=== PATIENT | female | born 1950 | race Caucasian/White ===

== ENCOUNTER 2017-04-06 11:28 | Inpatient (IN) | payer MEDICARE, MEDICAID ==
[~2017-04-06] VITALS: Ht 157.5 cm; Wt 76.2 kg
[~2017-04-06 11:28] MED LIST: ATEN100T PO; ATOR10TA PO; LANTUS SQ; LISI10TA5 PO; METF850T PO
[2017-04-06] MEDS ORDERED: LOSARTAN PO (11:55)
[2017-04-06] MEDS ORDERED: HUMALOG 75/25 SQ (11:55)
[2017-04-06] MEDS ORDERED: ASPI81TA31 PO (11:55)
[2017-04-06] MEDS ORDERED: LANTUS INSULIN SQ (11:55)
[2017-04-06] MEDS ORDERED: FELO10TA3 PO (11:55)
[2017-04-06] MEDS ORDERED: GABA-534 PO (11:55)
[2017-04-06] MEDS ORDERED: IV NORMAL SALINE 500 ML BAG IV ONE (12:15)
--- NOTE | 2017-04-06 12:37 | NUR ---
PT IS IN ROOM #2A. DR PATEL EVALUATED THE PT.
[2017-04-06] MEDS ORDERED: INSULIN REGULAR, HUMAN 1,000 UNITS/10 ML VIAL IV ONE (13:00)
[2017-04-06] MEDS ORDERED: INSULIN REGULAR, HUMAN 300 UNIT/3 ML VIAL ONE (13:26)
--- NOTE | 2017-04-06 13:33 | NUR ---
REPORT WAS GIVEN TO FACE CLEANER . PT WAS TRANSFERED TO ROOM #206.
[2017-04-06 13:40] LABS: CREATININE 1.2 mg/dL (0.6-1.3); POTASSIUM 4.9 mmol/L (3.5-5.1)
--- NOTE | 2017-04-06 13:40 | NUR ---
RECEIVED PATIENT FOR ADMISSION 66 YEARS OLD FEMALE FROM ED WITH DX OF HYPERGLYCEMIA PLACED INTO BED FIXED AND MADE COMFORTABLE PATIENT IS ALERT AND ORIENTED DENIES PAIN OR DISCOMFORTS ON ROOM AIR WITH NO SHORTNESS OF BREATH.PATIENT HAS A DIAPER ON AND STATED THAT SHE IS INCONTINENT MOST OF THE TIME.HER LEFT ARM IS FLACCID BUT LEFT LEG IS WEAK STATED THAT SHE COULD AMBULATE WITH A CANE MD NOTIFIED RE ADMISSION AND HE STATED WILL SEE PATIENT.
[2017-04-06 13:46] LABS: BILIRUBIN,DIRECT 0.1 mg/dL (0.0-0.2); BILIRUBIN,TOTAL 0.5 mg/dL (0.2-1.0); TOTAL PROTEIN, SERUM 6.7 g/dL (6.4-8.2)
[2017-04-06 14:00] VITALS: BP 148/65
[2017-04-06] MEDS ORDERED: ACETAMINOPHEN 325 MG TABLET PO PRN (14:30)
[2017-04-06] MEDS ORDERED: ONDANSETRON 4 MG/2 ML VIAL IV PRN (14:30)
[2017-04-06] MEDS ORDERED: DEXTROSE 50% 50 ML DISP.SYRIN IV PRN (14:30)
[2017-04-06] MEDS ORDERED: ZOLPIDEM 5 MG TABLET PO PRN (14:30)
[2017-04-06] MEDS ORDERED: HYDROCODONE/APAP 5-325MG TABLET PO PRN (14:30)
[2017-04-06 14:49] LABS: BASOPHILS % (AUTO) 0.6 % (0.0-2.0); EOSINOPHILS # (AUTO) 0.3 K/uL (0.0-0.7); EOSINOPHILS % (AUTO) 4.2 % (0.0-7.0); HEMOGLOBIN 11.5 G/DL (12.0-16.0); LYMPHOCYTES # (AUTO) 1.5 K/UL (0.8-4.8); LYMPHOCYTES % (AUTO) 19.8 % (20.5-51.5); MEAN CORPUSCULAR HEMOGLOBIN 30.1 UUG (27.0-31.0); MEAN CORPUSCULAR HGB CONC 33 g/dL (32.0-37.0); MEAN CORPUSCULAR VOLUME 91.5 FL (81.0-99.0); MONOCYTES # (AUTO) 0.6 K/UL (0.1-1.30); MONOCYTES % (AUTO) 7.6 % (0.0-11.0); NEUTROPHILS # (AUTO) 5.3 K/UL (1.8-8.9); NEUTROPHILS % (AUTO) 67.8 % (38.5-71.5); PLATELET COUNT (AUTO) 243 K/UL (150-450); RED BLOOD CELL COUNT(AUTO) 3.83 MIL/UL (4.2-5.4); WHITE BLOOD COUNT (AUTO) 7.7 K/UL (4.0-11.2)
[2017-04-06 15:27] VITALS: BP 141/71
[2017-04-06] MEDS: GABAPENTIN 300 MG CAPSULE PO SCH (16:10)
[2017-04-06] MEDS: BLOOD SUGAR DIAGNOSTIC 1 EACH STRIP VI SCH ×2 (16:10→20:07)
[2017-04-06] MEDS: INSULIN REGULAR, HUMAN 300 UNIT/3 ML VIAL SQ PRN ×2 (17:25→20:09)
--- NOTE | 2017-04-06 18:14 | NUR ---
URINE OBTAINED ORDERED AND SENT TO THE LAB.
[2017-04-06 19:22] LABS: *BILIRUBIN,URIN NEGATIVE (NEGATIVE); *BLOOD, URINE Trace-lysed (NEGATIVE); *CLARITY,URINE CLEAR (CLEAR); *COLOR,URINE YELLOW (YELLOW); *KETONES,URINE NEGATIVE (NEGATIVE); *UROBILINOGEN,URINE 0.2 E.U./dl (NORMAL); LEUKOCYTE ESTERASE ,URINE NEGATIVE (NEGATIVE); NITRITE, URINE NEGATIVE (NEGATIVE); PH,URINE 5.5 (5.0-8.0)
[2017-04-06 20:00] VITALS: BP 152/67
[2017-04-06] MEDS: DOCUSATE SODIUM 100 MG CAPSULE PO SCH (20:04)
[2017-04-06] MEDS: ATORVASTATIN 10 MG TABLET PO SCH (20:04)
[2017-04-06 20:44] LABS: *PROTEIN,URINE 3+ (NEGATIVE); UGLUCOSE 1+ (NEGATIVE)
[2017-04-06 20:46] LABS: BACTERIA,URINE FEW /HPF (NONE SEEN); MUCUS,URINE FEW /LPF (0-FEW); RBC,URINE 0-3 /HPF (0-3); SQUAMOUS EPITHELIAL CELL,UR MODERATE /HPF (NONE SEEN); YEAST,URINE FEW /HPF (NONE SEEN)
[2017-04-06] MEDS ORDERED: DOCUSATE SODIUM 250 MG CAPSULE PO SCH (21:00)
[2017-04-06] MEDS ORDERED: INSULIN DETEMIR 300 UNIT/3 ML CARTRIDGE SQ SCH (21:00)
[2017-04-07 00:30] VITALS: BP 149/70
[2017-04-07 04:00] VITALS: BP 146/71
[2017-04-07 06:24] LABS: BASOPHILS % (AUTO) 0.6 % (0.0-2.0); EOSINOPHILS # (AUTO) 0.3 K/uL (0.0-0.7); EOSINOPHILS % (AUTO) 4.6 % (0.0-7.0); HEMOGLOBIN 11.4 G/DL (12.0-16.0); LYMPHOCYTES # (AUTO) 1.5 K/UL (0.8-4.8); LYMPHOCYTES % (AUTO) 21.9 % (20.5-51.5); MEAN CORPUSCULAR HEMOGLOBIN 30.5 UUG (27.0-31.0); MEAN CORPUSCULAR HGB CONC 34 g/dL (32.0-37.0); MONOCYTES # (AUTO) 0.5 K/UL (0.1-1.30); MONOCYTES % (AUTO) 8.1 % (0.0-11.0); NEUTROPHILS # (AUTO) 4.4 K/UL (1.8-8.9); NEUTROPHILS % (AUTO) 64.8 % (38.5-71.5); PLATELET COUNT (AUTO) 237 K/UL (150-450); RED BLOOD CELL COUNT(AUTO) 3.74 MIL/UL (4.2-5.4); WHITE BLOOD COUNT (AUTO) 6.7 K/UL (4.0-11.2)
[2017-04-07] MEDS: PANTOPRAZOLE SODIUM 40 MG TABLET.DR PO SCH (06:40)
--- NOTE | 2017-04-07 06:45 | NUR ---
PT SLEPT WELL THROUGH THE NIGHT AND WAS EASILY AWOKEN, PT DENIED HAVING ANY PAIN OR DIFFICULTY BREATHING. NO ACUTE CHANGES NOTED DURING THE NIGHT, ALL NEEDS MET SAFETY MEASURES ARE IN PLACE, CALL LIGHT WITHIN REACH, BED ALARM IS ON.
[2017-04-07 06:48] LABS: THYROID STIMULATING HORMONE 3.05 mIU/mL (0.358-3.740)
[2017-04-07 07:02] LABS: BILIRUBIN,TOTAL 0.7 mg/dL (0.2-1.0); CREATININE 1.3 mg/dL (0.6-1.3); MAGNESIUM 1.5 mg/dL (1.8-2.4); PHOSPHOROUS 4.2 mg/dL (2.5-4.9); POTASSIUM 4.1 mmol/L (3.5-5.1); TOTAL PROTEIN, SERUM 6.6 g/dL (6.4-8.2)
[2017-04-07] MEDS: BLOOD SUGAR DIAGNOSTIC 1 EACH STRIP VI SCH ×4 (07:02→21:20)
[2017-04-07] MEDS: INSULIN REGULAR, HUMAN 300 UNIT/3 ML VIAL SQ PRN ×4 (08:00→21:20)
--- NOTE | 2017-04-07 08:00 | NUR ---
RECEIVED PATIENT IN BED AWAKE ALERT AND ORIENTED DENIES PAIN OR DISCOMFORTS AT THIS TIME.NO S/S OF HYPO/HYPERGLYCEMIC REACTIONS AT THIS TIME.REMAIN ON ROOM AIR WITH NO SHORTNESS OF BREATH NOT IN DISTRESS.
[2017-04-07] MEDS: ASPIRIN 81 MG TAB.CHEW PO SCH (08:09)
[2017-04-07] MEDS: GABAPENTIN 300 MG CAPSULE PO SCH ×2 (08:09→16:39)
[2017-04-07] MEDS: FELODIPINE 2.5 MG TAB.SR.24H PO SCH (08:11)
--- NOTE | 2017-04-07 09:00 | NUR ---
DR FERREIRA HERE TO SEE PATIENT WITH ORDER TO DISCHARGE PATIENT TO [facility] TODAY PATIENT AWARE AND STATED THAT SHE IS HER OWN RESPONSIBLE CONSTITUTION PARTY AND SHE ALREADY INFORMED HER FRIEND THAT SHE IS GOING BACK TO THE SNF. Addendum: 04/07/17 at 1555 by HOLDEN FREEMAN RN ERROR IN CHARTING WRONG PATIENT
[2017-04-07] MEDS ORDERED: MAGNESIUM OXIDE 400 MG TABLET PO ONE (10:45)
--- NOTE | 2017-04-07 10:45 | NUR ---
MAG LEVEL IS 1.5 DR GREENWOOD NOTIFIED WITH NEW ORDERS AND NOTED
[2017-04-07 11:28] VITALS: BP 163/66
--- NOTE | 2017-04-07 13:30 | NUR ---
CALLED THE [facility] AND REPORT GIVEN TO STAR COVARRUBIAS FOR CONTINUING CARE. Addendum: 04/07/17 at 1555 by HOLDEN FREEMAN RN ERROR IN CHARTING WRONG PATIENT
--- NOTE | 2017-04-07 14:45 | NUR ---
PATIENT DISCHARGED PICKED UP BY [facility] IN SATISFACTORY CONDITION WITH DISCHARGE INSTRUCTIONS AND PATIENT INSTRUCTED TO FOLLOW UP WITH HER PRIMARY DOCTOR CONTINUE WITH PHYSICAL THERAPY WITH AMBULATION WITH THE [facility] AND WITH THE BACTROBAN ORDERED AND OBSERVE [facility] AND SHE EXPRESSED UNDERSTANDING. Addendum: 04/07/17 at 1555 by HOLDEN FREEMAN RN ERROR IN CHARTING WRONG PATIENT
--- NOTE | 2017-04-07 15:00 | NUR ---
DR GREENWOOD HERE TO SEE PATIENT WITH NO NEW ORDERS AT THIS TIME.WILL CONTINUE TO OBSERVE.
[2017-04-07 15:15] VITALS: BP 117/60
--- NOTE | 2017-04-07 18:16 | NUR ---
NEW ORDERS NOTED FROM DR GREENWOOD AND NOTED.AWAITING FOR PHARMACY TO DELIVER THE ANTIBIOTICS
[2017-04-07] MEDS ORDERED: LORA-114 PO (18:30)
[2017-04-07] MEDS ORDERED: LOSA100T15 PO (18:30)
[2017-04-07] MEDS ORDERED: INSU3INS3 SQ ×2 (18:30)
[2017-04-07] MEDS: FLUCONAZOLE 200 MG/NS 100ML IV 100 MG in PREMIXED 1 EACH IV SCH (18:31)
[2017-04-07] MEDS ORDERED: ATOR40TA PO (18:33)
[2017-04-07 20:16] VITALS: BP 134/60
[2017-04-07] MEDS ORDERED: INSULIN DETEMIR 300 UNIT/3 ML CARTRIDGE SQ SCH (21:00)
[2017-04-07] MEDS: DOCUSATE SODIUM 100 MG CAPSULE PO SCH (21:10)
[2017-04-07] MEDS: Z GUARD REMEDY PASTE 57 GM TUBE TOP SCH (21:11)
[2017-04-07] MEDS: ATORVASTATIN 10 MG TABLET PO SCH (21:11)
[2017-04-08 04:30] VITALS: BP 126/60
--- NOTE | 2017-04-08 06:10 | NUR ---
PATIENT SLEPT WELL, IN NO ACUTE DISTRESS. ACCUCHECKS ORDERED, PT KEPT CLEAN/DRY, REPOSITIONED FOR COMFORT, ALL NEEDS MET. SAFETY MEASURES IN PLACE, CALL LIGHT WITHIN REACH, BED ALARM ON. WILL CONTINUE TO MONITOR.
[2017-04-08] MEDS: PANTOPRAZOLE SODIUM 40 MG TABLET.DR PO SCH (06:26)
[2017-04-08] MEDS: BLOOD SUGAR DIAGNOSTIC 1 EACH STRIP VI SCH ×4 (06:30→20:26)
--- NOTE | 2017-04-08 07:35 | NUR ---
RECEIVED PATIENT IN BED AWAKE ALERT AND ORIENTED DENIES PAIN OR DISCOMFORTS AT THIS TIME.NO S/S OF HYPO/HYPERGLYCEMIC REACTIONS AT THIS TIME.REMAIN ON ROOM AIR WITH NO SHORTNESS OF BREATH ,CALL LIGHT WITH IN REACH
[2017-04-08] MEDS: INSULIN REGULAR, HUMAN 300 UNIT/3 ML VIAL SQ PRN ×4 (07:39→20:25)
[2017-04-08] MEDS: ASPIRIN 81 MG TAB.CHEW PO SCH (08:03)
[2017-04-08] MEDS: FELODIPINE 2.5 MG TAB.SR.24H PO SCH (08:04)
[2017-04-08] MEDS: Z GUARD REMEDY PASTE 57 GM TUBE TOP SCH ×2 (08:04→20:22)
[2017-04-08] MEDS: GABAPENTIN 300 MG CAPSULE PO SCH ×2 (08:04→16:02)
[2017-04-08 10:54] VITALS: BP 142/60
[2017-04-08 11:48] VITALS: BP 142/60
[2017-04-08 15:32] VITALS: BP 102/69
[2017-04-08] MEDS: FLUCONAZOLE 200 MG/NS 100ML IV 100 MG in PREMIXED 1 EACH IV SCH (17:34)
[2017-04-08 20:00] VITALS: BP 156/60
[2017-04-08] MEDS: DOCUSATE SODIUM 100 MG CAPSULE PO SCH (20:22)
[2017-04-08] MEDS: ATORVASTATIN 10 MG TABLET PO SCH (20:22)
[2017-04-08] MEDS ORDERED: INSULIN DETEMIR 300 UNIT/3 ML CARTRIDGE SQ SCH (21:00)
[2017-04-09 05:53] VITALS: BP 121/64
[2017-04-09] MEDS: PANTOPRAZOLE SODIUM 40 MG TABLET.DR PO SCH (06:12)
--- NOTE | 2017-04-09 06:19 | NUR ---
PATIENT SLEPT WELL, IN NO ACUTE DISTRESS. ACCUCHECKS ORDERED. PT NO C/O OF PAIN, NAUSEA, VOMITING, DIZZINESS. NO SIGNIFICANT CHANGE OF CONDITION THROUGHOUT THE SHIFT. PATIENT KEPT CLEAN/DRY, SAFETY MEASURES IN PLACE. WILL ENDORSE TO ONCOMING RN.
[2017-04-09] MEDS: BLOOD SUGAR DIAGNOSTIC 1 EACH STRIP VI SCH ×3 (06:30→16:05)
[2017-04-09 06:45] LABS: BASOPHILS % (AUTO) 0.5 % (0.0-2.0); EOSINOPHILS # (AUTO) 0.2 K/uL (0.0-0.7); HEMATOCRIT 34.1 % (37-47); HEMOGLOBIN 11.7 G/DL (12.0-16.0); LYMPHOCYTES # (AUTO) 1.3 K/UL (0.8-4.8); LYMPHOCYTES % (AUTO) 19.6 % (20.5-51.5); MEAN CORPUSCULAR HEMOGLOBIN 31.2 UUG (27.0-31.0); MEAN CORPUSCULAR HGB CONC 34 g/dL (32.0-37.0); MEAN CORPUSCULAR VOLUME 91.2 FL (81.0-99.0); MONOCYTES # (AUTO) 0.5 K/UL (0.1-1.30); MONOCYTES % (AUTO) 6.6 % (0.0-11.0); NEUTROPHILS # (AUTO) 4.8 K/UL (1.8-8.9); NEUTROPHILS % (AUTO) 70.3 % (38.5-71.5); PLATELET COUNT (AUTO) 228 K/UL (150-450); RED BLOOD CELL COUNT(AUTO) 3.74 MIL/UL (4.2-5.4); WHITE BLOOD COUNT (AUTO) 6.8 K/UL (4.0-11.2)
[2017-04-09 06:54] LABS: BILIRUBIN,TOTAL 0.6 mg/dL (0.2-1.0); CREATININE 1.3 mg/dL (0.6-1.3); MAGNESIUM 1.7 mg/dL (1.8-2.4); POTASSIUM 4.3 mmol/L (3.5-5.1); TOTAL PROTEIN, SERUM 6.5 g/dL (6.4-8.2); URIC ACID 5.6 mg/dL (2.6-6.0)
[2017-04-09] MEDS: INSULIN REGULAR, HUMAN 300 UNIT/3 ML VIAL SQ PRN ×3 (07:19→16:21)
[2017-04-09] MEDS: ASPIRIN 81 MG TAB.CHEW PO SCH (08:06)
[2017-04-09] MEDS: GABAPENTIN 300 MG CAPSULE PO SCH ×2 (08:06→16:10)
[2017-04-09] MEDS: FELODIPINE 2.5 MG TAB.SR.24H PO SCH (08:06)
[2017-04-09] MEDS: Z GUARD REMEDY PASTE 57 GM TUBE TOP SCH (08:06)
[2017-04-09] MEDS ORDERED: BISACODYL 10 MG SUPP.RECT RC PRN (09:45)
[2017-04-09] MEDS ORDERED: INSULIN DETEMIR 300 UNIT/3 ML CARTRIDGE SQ SCH (11:15)
--- NOTE | 2017-04-09 11:22 | NUR ---
PT BLOOD SUGAR IS 437 MD MADE AWARE,NEW ORDERS RECEIVED NOTIFIED AND CARRIED OUT.
[2017-04-09 11:35] VITALS: BP 101/68
[2017-04-09] MEDS ORDERED: MAGNESIUM OXIDE 400 MG TABLET PO ONE (12:00)
[2017-04-09 15:12] VITALS: BP 151/76
[2017-04-09] MEDS ORDERED: INSU100V10 SQ (16:27)
[2017-04-09] MEDS ORDERED: BISA10SU12 RC (16:27)
[2017-04-09] MEDS ORDERED: PANT40TA2 PO (16:27)
[2017-04-09] MEDS ORDERED: ATEN25TA PO (16:27)
[2017-04-09] MEDS ORDERED: ZOLP5TAB8 PO (16:27)
[2017-04-09] MEDS ORDERED: DEXT50DI8 IV (16:27)
[2017-04-09] MEDS ORDERED: LOSA25TA13 PO (16:27)
[2017-04-09] MEDS ORDERED: INSU100V28 SQ (16:27)
[2017-04-09] MEDS ORDERED: Blood Sugar Diagnostic VI (16:27)
[2017-04-09] MEDS ORDERED: DOCU100C36 PO (16:27)
[2017-04-09] MEDS ORDERED: INSU100I19 SQ (16:27)
[2017-04-09] MEDS ORDERED: HYDR-3326 PO (16:27)
--- NOTE | 2017-04-09 16:45 | NUR ---
pt blood sugar is 419 md made aware.
--- NOTE | 2017-04-09 17:22 | NUR ---
d/c orders received noted and carried out,d/c heplock per md orders.rn report given to rn .pt left the facility via ambulances in stable condition.
== END 2017-04-09 17:45 | DRG 638 ==
LOC: ER 11:31 → TELE 13:13 → MED 04-07 17:17
PROVIDERS: ADMIT Internal Medicine; ATTEND Internal Medicine
DX: E11.65 Type 2 diabetes mellitus with hyperglycemia (principal); I69.354 Hemiplegia and hemiparesis following cerebral infarction affecting left non-dominant side; B48.8 Other specified mycoses; D68.59 Other primary thrombophilia; N39.0 Urinary tract infection, site not specified; F01.50 Vascular dementia, unspecified severity, without behavioral disturbance, psychotic disturbance, mood disturbance, and anxiety; Z79.4 Long term (current) use of insulin; E78.5 Hyperlipidemia, unspecified; R32 Unspecified urinary incontinence; E66.9 Obesity, unspecified; Z68.30 Body mass index [BMI] 30.0-30.9, adult; M10.9 Gout, unspecified; Z90.49 Acquired absence of other specified parts of digestive tract; Z79.899 Other long term (current) drug therapy; Z79.84 Long term (current) use of oral hypoglycemic drugs; M81.0 Age-related osteoporosis without current pathological fracture; M19.90 Unspecified osteoarthritis, unspecified site; G47.00 Insomnia, unspecified; F41.9 Anxiety disorder, unspecified; F32.9 Major depressive disorder, single episode, unspecified; Z74.09 Other reduced mobility; R94.31 Abnormal electrocardiogram [ECG] [EKG]; I11.9 Hypertensive heart disease without heart failure; S42.202S Unspecified fracture of upper end of left humerus, sequela; W19.XXXS Unspecified fall, sequela; M24.612 Ankylosis, left shoulder; I44.0 Atrioventricular block, first degree; E11.40 Type 2 diabetes mellitus with diabetic neuropathy, unspecified
CPT/HCPCS: 36415; 70030-TC; 71010; 82306; 83550; 83605; 83690; 83735; 84100; 84443; 84550; 85025; 85730; 87040; 87086; 93005; 97110; 97112; 97530; A4663; J1450; J1815; J7030; J7040

== ENCOUNTER 2017-05-30 21:23 | Inpatient (IN) | payer MEDICARE, MEDICAID ==
[~2017-05-30] VITALS: Ht 165.1 cm; Wt 84.6 kg
[~2017-05-30 21:23] MED LIST changes: +ASPI81TA31 PO; -ATEN100T PO; +ATEN25TA PO; +BISA10SU12 RC; +Blood Sugar Diagnostic VI; +DEXT50DI8 IV; +DOCU100C36 PO; +FELO10TA3 PO; +GABA-534 PO; +HYDR-3326 PO; +INSU100I19 SQ; +INSU100V10 SQ; +INSU100V28 SQ; -LANTUS SQ; -LISI10TA5 PO; +LORA-114 PO; +LOSA25TA13 PO; -METF850T PO; +PANT40TA2 PO; +ZOLP5TAB8 PO
[2017-05-30] MEDS ORDERED: IV NORMAL SALINE 1000 ML BAG IV ONE (22:00)
[2017-05-30] MEDS ORDERED: INSULIN REGULAR, HUMAN 1,000 UNITS/10 ML VIAL IV ONE (22:00)
--- NOTE | 2017-05-30 22:03 | NUR ---
HELGA speaking with Dr. Wiggins
[2017-05-30 22:04] LABS: BASOPHILS % (AUTO) 0.3 % (0.0-2.0); EOSINOPHILS % (AUTO) 0.1 % (0.0-7.0); HEMATOCRIT 33.9 % (31.2-41.9); LYMPHOCYTES # (AUTO) 0.5 K/uL (20.0-40.0); LYMPHOCYTES % (AUTO) 4.4 % (20.5-51.5); MEAN CORPUSCULAR HEMOGLOBIN 31.5 uug (24.7-32.8); MEAN CORPUSCULAR HGB CONC 35 g/dL (32.3-35.6); MEAN CORPUSCULAR VOLUME 89.2 fL (75.5-95.3); MONOCYTES % (AUTO) 8.2 % (0.0-11.0); NEUTROPHILS # (AUTO) 10.7 K/uL (1.8-8.9); PLATELET COUNT (AUTO) 213 K/uL (179-408); RED BLOOD CELL COUNT(AUTO) 3.79 MIL/uL (3.63-4.92); WHITE BLOOD COUNT (AUTO) 12.3 K/uL (3.8-11.8)
[2017-05-30] MEDS ORDERED: INSULIN REGULAR, HUMAN 300 UNIT/3 ML VIAL ONE (22:11)
[2017-05-30] MEDS ORDERED: ACETAMINOPHEN ES 500 MG TABLET ONE (22:11)
[2017-05-30] MEDS ORDERED: ACETAMINOPHEN ES 500 MG TABLET PO ONE (22:15)
[2017-05-30 22:21] LABS: CREATININE 1.9 mg/dL (0.6-1.3)
[2017-05-30 22:26] LABS: BILIRUBIN,DIRECT 0.2 mg/dL (0.0-0.2); BILIRUBIN,TOTAL 0.8 mg/dL (0.2-1.0); TOTAL PROTEIN, SERUM 7.1 g/dL (6.4-8.2)
[2017-05-30] MEDS ORDERED: CHOL100062 PO (22:31)
[2017-05-30] MEDS ORDERED: INSU100V10 SQ ×2 (22:31)
[2017-05-30] MEDS ORDERED: PREG25CA PO (22:31)
[2017-05-30] MEDS ORDERED: MULT-213 PO (22:31)
[2017-05-30] MEDS ORDERED: ATEN25TA PO (22:31)
[2017-05-30] MEDS ORDERED: FELO10TA3 PO (22:31)
[2017-05-30] MEDS ORDERED: ACET325T53 PO (22:31)
[2017-05-30] MEDS ORDERED: DOCU100T2 PO (22:31)
[2017-05-30] MEDS ORDERED: LORA10TA7 PO (22:31)
[2017-05-30] MEDS ORDERED: LOSA50TA21 PO (22:31)
[2017-05-30] MEDS ORDERED: HYDR-3972 PO (22:31)
[2017-05-30] MEDS ORDERED: BISA10SU8 RC (22:31)
[2017-05-30] MEDS ORDERED: PROT946L PO (22:31)
[2017-05-30] MEDS ORDERED: BLOO-140 IN (22:31)
[2017-05-30] MEDS ORDERED: PANT40TA2 PO (22:31)
--- NOTE | 2017-05-30 22:46 | NUR ---
FOLLOW-UP INTERVIEW: PATIENT STATED THAT SHE HAD HER TUBAL LIGATION AND CHOLECYSTECTOMY IN [place].
[2017-05-31] MEDS ORDERED: CEFTRIAXONE 1 G in IV DEXTROSE 5% 50 ML IV ONE ×2
[2017-05-31] MEDS ORDERED: CEFTRIAXONE 1 G VIAL ONE (00:14)
--- NOTE | 2017-05-31 00:30 | NUR ---
No fluid bolus due to CHF per ERMD.
[2017-05-31] MEDS ORDERED: INSULIN DETEMIR 300 UNIT/3 ML CARTRIDGE SQ SCH (00:45)
[2017-05-31] MEDS ORDERED: PIPERACILLIN/TAZOBACTAM/D5W 2.25 G in PREMIXED 1 EACH IV SCH (00:45)
[2017-05-31] MEDS ORDERED: BISACODYL 10 MG SUPP.RECT RC PRN (00:45)
[2017-05-31] MEDS ORDERED: DEXTROSE 50% 50 ML DISP.SYRIN IV PRN (00:45)
[2017-05-31] MEDS ORDERED: ACETAMINOPHEN 325 MG TABLET PO PRN (00:45)
--- NOTE | 2017-05-31 00:45 | NUR ---
Pt. admitted to TELE, under care of Dr. Wiggins Belongs List completed
[2017-05-31 01:50] VITALS: BP 115/56
[2017-05-31] MEDS ORDERED: PIPERACILLIN/TAZOBACTAM/D5W 50 ML ONE (02:01)
[2017-05-31] MEDS ORDERED: INSULIN DETEMIR 300 UNIT/3 ML CARTRIDGE SQ ONE (02:03)
[2017-05-31] MEDS ORDERED: INSULIN REGULAR, HUMAN 300 UNIT/3 ML VIAL ONE (02:04)
[2017-05-31] MEDS: IV 1/2NS 1000 ML 1,000 ML IV PRN ×2 (02:14→22:12)
[2017-05-31 04:00] VITALS: BP 102/43
[2017-05-31 06:31] LABS: BASOPHILS % (AUTO) 0.5 % (0.0-2.0); EOSINOPHILS % (AUTO) 0.2 % (0.0-7.0); HEMATOCRIT 29.4 % (31.2-41.9); HEMOGLOBIN 10.1 g/dL (10.9-14.3); LYMPHOCYTES # (AUTO) 1.8 K/uL (20.0-40.0); LYMPHOCYTES % (AUTO) 17.9 % (20.5-51.5); MEAN CORPUSCULAR HEMOGLOBIN 31.3 uug (24.7-32.8); MEAN CORPUSCULAR HGB CONC 34 g/dL (32.3-35.6); MEAN CORPUSCULAR VOLUME 91.3 fL (75.5-95.3); MONOCYTES # (AUTO) 1.1 K/uL (2.0-10.0); MONOCYTES % (AUTO) 10.9 % (0.0-11.0); NEUTROPHILS % (AUTO) 70.5 % (38.5-71.5); PLATELET COUNT (AUTO) 176 K/uL (179-408); RED BLOOD CELL COUNT(AUTO) 3.22 MIL/uL (3.63-4.92); WHITE BLOOD COUNT (AUTO) 9.9 K/uL (3.8-11.8)
[2017-05-31] MEDS: BLOOD SUGAR DIAGNOSTIC 1 EACH STRIP VI SCH ×4 (06:50→21:25)
[2017-05-31 07:06] LABS: BILIRUBIN,TOTAL 0.5 mg/dL (0.2-1.0); CREATININE 1.9 mg/dL (0.6-1.3); MAGNESIUM 1.7 mg/dL (1.8-2.4); PHOSPHOROUS 4.3 mg/dL (2.5-4.9); POTASSIUM 4.3 mmol/L (3.5-5.1); TOTAL PROTEIN, SERUM 5.8 g/dL (6.4-8.2)
[2017-05-31] MEDS ORDERED: VANCOMYCIN IV 1,500 MG in IV DEXTROSE 5% 500 ML IV ONE (08:00)
[2017-05-31] MEDS: MULTIVIT, IRON, MIN NO. 8, FA TABLET PO SCH (08:14)
[2017-05-31] MEDS: PANTOPRAZOLE SODIUM 40 MG TABLET.DR PO SCH (08:14)
[2017-05-31] MEDS: ASPIRIN 81 MG TAB.CHEW PO SCH (08:16)
[2017-05-31] MEDS: FELODIPINE 2.5 MG TAB.SR.24H PO SCH (08:16)
[2017-05-31] MEDS: CHOLECALCIFEROL 1,000 UNIT TABLET PO SCH (08:16)
[2017-05-31] MEDS: PREGABALIN 25 MG CAPSULE PO SCH ×2 (08:16→16:55)
[2017-05-31] MEDS: PROTEIN SUPPLEMENT (PROSTAT) 30 ML LIQUID PO SCH ×2 (08:17→16:52)
[2017-05-31] MEDS: ATENOLOL 25 MG TABLET PO SCH (08:17)
[2017-05-31] MEDS: INSULIN REGULAR, HUMAN 300 UNIT/3 ML VIAL SQ PRN ×3 (08:23→16:49)
[2017-05-31] MEDS ORDERED: Medication Not On Formulary EA (Multivitamins W-Minerals (Multivitamin With Minerals) 1 PO SCH (09:00)
[2017-05-31] MEDS ORDERED: Medication Not On Formulary EA (Protein Supplement (Promod) 30 ML) PO SCH (09:00)
[2017-05-31] MEDS: LORATADINE 10 MG TABLET PO SCH (09:37)
[2017-05-31] MEDS: HYDROCODONE/APAP 5-325MG TABLET PO PRN ×2 (09:37→22:02)
[2017-05-31 11:52] VITALS: BP 140/66
[2017-05-31] MEDS: PIPERACILLIN/TAZOBACTAM/D5W 2.25 G in PREMIXED 1 EACH IV SCH ×3 (13:25→21:31)
[2017-05-31] MEDS ORDERED: MAGNESIUM SULFATE/D5W 100 ML IV SCH (13:30)
--- NOTE | 2017-05-31 15:05 | NUR ---
Clinical Pharmacy Note: Vancomycin Pharmacy to Dose Subjective; To start vanco in this 66 y/o female for indication of sepsis (per ER MD note) Objective: height: 65'' weight: 186 lb BUN 43 Scr 1.9 wbc 9.9 temp 97.7 Assessment/Plan Due to advanced age & elevated srcr will start to dose by fall off level. Gave vanco 1500 mg IVPB x1 today at 0800. Plan to order vanco random level for am with am labs. Pharmacy will check vanco random level in am for further dosing Will continue to monitor.
[2017-05-31 15:47] VITALS: BP 114/46
[2017-05-31 16:36] LABS: *BILIRUBIN,URIN NEGATIVE (NEGATIVE); *BLOOD, URINE 2+ (NEGATIVE); *CLARITY,URINE CLOUDY (CLEAR); *COLOR,URINE YELLOW (YELLOW); *KETONES,URINE NEGATIVE (NEGATIVE); *PROTEIN,URINE 2+ (NEGATIVE); *UROBILINOGEN,URINE 0.2 E.U./dl (NORMAL); LEUKOCYTE ESTERASE ,URINE 3+ (NEGATIVE); NITRITE, URINE NEGATIVE (NEGATIVE); UGLUCOSE NEGATIVE (NEGATIVE)
[2017-05-31 16:37] LABS: *CREATININE,URINE 50.7 mg/dL (30-125)
[2017-05-31 16:51] LABS: *URINE TOTAL PROTEIN RANDOM 71.1 mg/dL (<150/24HR)
[2017-05-31 17:06] LABS: BACTERIA,URINE MODERATE /HPF (NONE SEEN); SQUAMOUS EPITHELIAL CELL,UR FEW /HPF (NONE SEEN); WBC,URINE 20-50 /HPF (0-3); YEAST,URINE FEW /HPF (NONE SEEN)
--- NOTE | 2017-05-31 19:40 | NUR ---
Received pt in bed, appearing to be asleep but easily arousable to verbal stimuli. No acute distress noted. Denies pain or discomfort at this time. All safety measures and fall precautions maintained. Call light and all personal belongings within reach. Will continue to monitor.
[2017-05-31 20:49] VITALS: BP 140/52
[2017-05-31] MEDS ORDERED: Medication Not On Formulary EA (Docusate Sodium 200 MG) PO SCH (21:00)
[2017-05-31] MEDS: ATORVASTATIN 10 MG TABLET PO SCH (21:23)
[2017-05-31] MEDS: DOCUSATE SODIUM 100 MG CAPSULE PO SCH (21:23)
[2017-05-31] MEDS: INSULIN REGULAR, HUMAN 300 UNITS/3 ML VIAL SQ PRN (21:28)
[2017-05-31] MEDS: INSULIN DETEMIR 300 UNIT/3 ML CARTRIDGE SQ SCH (21:29)
[2017-06-01 04:00] VITALS: BP 129/55
[2017-06-01] MEDS: PIPERACILLIN/TAZOBACTAM/D5W 2.25 G in PREMIXED 1 EACH IV SCH ×4 (04:00→21:24)
[2017-06-01] MEDS: PANTOPRAZOLE SODIUM 40 MG TABLET.DR PO SCH (06:31)
[2017-06-01] MEDS: BLOOD SUGAR DIAGNOSTIC 1 EACH STRIP VI SCH ×4 (06:33→21:22)
[2017-06-01 07:34] LABS: BASOPHILS # (AUTO) 0.1 K/uL (0.0-8.0); BASOPHILS % (AUTO) 0.8 % (0.0-2.0); EOSINOPHILS # (AUTO) 0.2 K/uL (0.0-0.7); HEMATOCRIT 28.3 % (31.2-41.9); HEMOGLOBIN 9.9 g/dL (10.9-14.3); LYMPHOCYTES # (AUTO) 1.4 K/uL (20.0-40.0); LYMPHOCYTES % (AUTO) 16.8 % (20.5-51.5); MEAN CORPUSCULAR HEMOGLOBIN 31.6 uug (24.7-32.8); MEAN CORPUSCULAR HGB CONC 35 g/dL (32.3-35.6); MEAN CORPUSCULAR VOLUME 90.5 fL (75.5-95.3); MONOCYTES # (AUTO) 0.9 K/uL (2.0-10.0); MONOCYTES % (AUTO) 11.6 % (0.0-11.0); NEUTROPHILS # (AUTO) 5.5 K/uL (1.8-8.9); NEUTROPHILS % (AUTO) 67.8 % (38.5-71.5); PLATELET COUNT (AUTO) 166 K/uL (179-408); RED BLOOD CELL COUNT(AUTO) 3.13 MIL/uL (3.63-4.92); WHITE BLOOD COUNT (AUTO) 8.1 K/uL (3.8-11.8)
[2017-06-01 07:58] LABS: BILIRUBIN,TOTAL 0.4 mg/dL (0.2-1.0); CREATININE 1.6 mg/dL (0.6-1.3); MAGNESIUM 1.9 mg/dL (1.8-2.4); PHOSPHOROUS 3.8 mg/dL (2.5-4.9); POTASSIUM 3.9 mmol/L (3.5-5.1); TOTAL PROTEIN, SERUM 5.6 g/dL (6.4-8.2); VANCOMYCIN,RANDOM 13.3 ug/mL (18.0-26.0)
[2017-06-01] MEDS: CHOLECALCIFEROL 1,000 UNIT TABLET PO SCH (08:22)
[2017-06-01] MEDS: PREGABALIN 25 MG CAPSULE PO SCH ×2 (08:22→16:51)
[2017-06-01] MEDS: MULTIVIT, IRON, MIN NO. 8, FA TABLET PO SCH (08:22)
[2017-06-01] MEDS: ATENOLOL 25 MG TABLET PO SCH (08:22)
[2017-06-01] MEDS: ASPIRIN 81 MG TAB.CHEW PO SCH (08:22)
[2017-06-01] MEDS: LORATADINE 10 MG TABLET PO SCH (08:22)
[2017-06-01] MEDS: FELODIPINE 2.5 MG TAB.SR.24H PO SCH (08:22)
[2017-06-01] MEDS: INSULIN DETEMIR 300 UNIT/3 ML CARTRIDGE SQ SCH ×2 (08:29→21:14)
[2017-06-01] MEDS: PROTEIN SUPPLEMENT (PROSTAT) 30 ML LIQUID PO SCH ×2 (08:31→16:57)
[2017-06-01] MEDS ORDERED: VANCOMYCIN IV 1,250 MG in IV DEXTROSE 5% 500 ML IV ONE (09:00)
[2017-06-01 11:27] VITALS: BP 126/54
[2017-06-01] MEDS: INSULIN REGULAR, HUMAN 300 UNIT/3 ML VIAL SQ PRN ×2 (11:54→16:56)
--- NOTE | 2017-06-01 14:00 | NUR ---
Clinical Pharmacy Note: Vancomycin Pharmacy to Dose Subjective; To continue vanco in this 66 y/o female for indication of sepsis (per ER MD note) Objective: height: 65'' weight: 186 lb BUN 32 Scr 1.6 wbc 8.1 temp 98.3 vanco random level: 13.3 (with am labs) Assessment/Plan Due to advanced age & elevated srcr will continue to dose by fall off level. Since vanco random level is 13.3, gave vanco 1250 mg IVPB x1 today at 0900. Plan to order vanco random level for am with am labs. Pharmacy will check vanco random level in am for further dosing Will continue to monitor.
[2017-06-01 16:15] VITALS: BP 136/61
--- NOTE | 2017-06-01 18:56 | NUR ---
PATIENT BEEN IN BED RESTING DURING THE DAY. NO S/S OF DISTRESS NOTED. COOPERATIVE WITH INTERVENTIONS. A LETTER WAS PROVIDED TO PATIENT FROM CM, IT WAS REQUESTED BY PATIENT. SAFETY AND COMFORT PROVIDED BY STAFF. IV STILL INTACT. FLUIDS ARE RUNNING. REPORT WILL BE GIVEN TO RN.
[2017-06-01 19:00] VITALS: BP 139/60
--- NOTE | 2017-06-01 19:10 | NUR ---
Received report from MARCI Kim. Patient awake during initial rounds. Denies any pain/discomforts at this time but claiming that she could barely move her left side and not walking. Safety measures and fall precaution maintained. Continue current plan of care.
[2017-06-01] MEDS: DOCUSATE SODIUM 100 MG CAPSULE PO SCH (21:09)
[2017-06-01] MEDS: ATORVASTATIN 10 MG TABLET PO SCH (21:09)
[2017-06-01] MEDS: INSULIN REGULAR, HUMAN 300 UNITS/3 ML VIAL SQ PRN (21:15)
[2017-06-01] MEDS: HYDROCODONE/APAP 5-325MG TABLET PO PRN (21:20)
--- NOTE | 2017-06-01 21:20 | NUR ---
[place] 1 tab given as needed and ordered for complaint of left leg pain in scale of 5/10. Will monitor.
[2017-06-01] MEDS ORDERED: INSULIN DETEMIR 300 UNIT/3 ML CARTRIDGE SQ ONE (23:07)
[2017-06-02] MEDS: IV 1/2NS 1000 ML 1,000 ML IV PRN ×2 (03:02→22:20)
[2017-06-02 04:00] VITALS: BP 122/68
[2017-06-02] MEDS: PIPERACILLIN/TAZOBACTAM/D5W 2.25 G in PREMIXED 1 EACH IV SCH ×4 (04:06→22:15)
--- NOTE | 2017-06-02 05:10 | NUR ---
Slept good. Continue IVF as ordered. IVPB ATB continuos as ordered with no s/s of adverse reaction noted. All needs attended and met. No significant event reported all night. Continue care as planned.
[2017-06-02] MEDS: HYDROCODONE/APAP 5-325MG TABLET PO PRN (05:30)
[2017-06-02] MEDS: PANTOPRAZOLE SODIUM 40 MG TABLET.DR PO SCH (05:31)
[2017-06-02] MEDS: BLOOD SUGAR DIAGNOSTIC 1 EACH STRIP VI SCH ×4 (05:38→20:53)
[2017-06-02 06:37] LABS: BASOPHILS % (AUTO) 0.8 % (0.0-2.0); EOSINOPHILS # (AUTO) 0.2 K/uL (0.0-0.7); EOSINOPHILS % (AUTO) 3.6 % (0.0-7.0); HEMATOCRIT 31.8 % (31.2-41.9); HEMOGLOBIN 11.2 g/dL (10.9-14.3); LYMPHOCYTES % (AUTO) 16.7 % (20.5-51.5); MEAN CORPUSCULAR HEMOGLOBIN 31.8 uug (24.7-32.8); MEAN CORPUSCULAR HGB CONC 35 g/dL (32.3-35.6); MEAN CORPUSCULAR VOLUME 90.3 fL (75.5-95.3); MONOCYTES # (AUTO) 0.6 K/uL (2.0-10.0); MONOCYTES % (AUTO) 10.8 % (0.0-11.0); NEUTROPHILS # (AUTO) 4.1 K/uL (1.8-8.9); NEUTROPHILS % (AUTO) 68.1 % (38.5-71.5); PLATELET COUNT (AUTO) 197 K/uL (179-408); RED BLOOD CELL COUNT(AUTO) 3.52 MIL/uL (3.63-4.92)
[2017-06-02 07:24] LABS: BILIRUBIN,TOTAL 0.4 mg/dL (0.2-1.0); CREATININE 1.4 mg/dL (0.6-1.3); PHOSPHOROUS 3.7 mg/dL (2.5-4.9); POTASSIUM 4.1 mmol/L (3.5-5.1); TOTAL PROTEIN, SERUM 6.1 g/dL (6.4-8.2); VANCOMYCIN,RANDOM 17.9 ug/mL (18.0-26.0)
[2017-06-02] MEDS: PROTEIN SUPPLEMENT (PROSTAT) 30 ML LIQUID PO SCH ×2 (08:00→16:44)
[2017-06-02] MEDS: FLUCONAZOLE 200 MG/NS 100ML IV 100 MG in PREMIXED 1 EACH IV SCH (08:00)
[2017-06-02] MEDS: LORATADINE 10 MG TABLET PO SCH (09:05)
[2017-06-02] MEDS: CHOLECALCIFEROL 1,000 UNIT TABLET PO SCH (09:05)
[2017-06-02] MEDS: TAMSULOSIN HCL 0.4 MG CAP.SR.24H PO SCH ×2 (09:05→20:47)
[2017-06-02] MEDS: MULTIVIT, IRON, MIN NO. 8, FA TABLET PO SCH (09:05)
[2017-06-02] MEDS: PREGABALIN 25 MG CAPSULE PO SCH ×2 (09:05→16:44)
[2017-06-02] MEDS: ASPIRIN 81 MG TAB.CHEW PO SCH (09:06)
[2017-06-02] MEDS: INSULIN DETEMIR 300 UNIT/3 ML CARTRIDGE SQ SCH ×2 (09:21→20:55)
[2017-06-02] MEDS: FELODIPINE 2.5 MG TAB.SR.24H PO SCH (09:23)
[2017-06-02] MEDS: ATENOLOL 25 MG TABLET PO SCH (09:25)
[2017-06-02 11:54] VITALS: BP 118/42
[2017-06-02 11:57] VITALS: BP 110/71
[2017-06-02] MEDS: INSULIN REGULAR, HUMAN 300 UNIT/3 ML VIAL SQ PRN ×2 (12:09→16:51)
[2017-06-02] MEDS ORDERED: VANCOMYCIN IV 1,250 MG in IV DEXTROSE 5% 500 ML IV ONE (15:30)
[2017-06-02 16:15] VITALS: BP 148/73
[2017-06-02 19:00] VITALS: BP 140/72
--- NOTE | 2017-06-02 19:25 | NUR ---
Received report from AM nurse. Patient awake during initial rounds. Denies any pain/discomforts at this time. Continue care as planned.
--- NOTE | 2017-06-02 20:23 | NUR ---
PHARMACY CLINICAL NOTES; (VANCOMYCIN DOSING) S: 66 YO FEMALE ON VANCOMYCIN DOSED BY FALL OF LEVELS FOR TREATMENT OF SEPSIS O: BUN/SCR 21/1.4 ; WBC 6.0; TEMP 99.6 VANCOMYCIN LEVEL 17.9 A/P: SINCE PT IS FEBRILE AND VANCO LEVEL IN WITHIN THERAPEUTIC RANGE WILL GIVE ANOTHER DOSE OF VANCOMYCIN 1250 X 1 WILL ORDER ANOTHER LEVEL FOR TOMORROW AND WILL FOLLOW UP . WILL CONTINUE MONITORING RENAL FXN AND ADJUST DOSE ACCORDINGLY.
[2017-06-02] MEDS: LACTOBACILLUS RHAMNOSUS GG 1 EACH CAPSULE PO SCH (20:47)
[2017-06-02] MEDS: DOCUSATE SODIUM 100 MG CAPSULE PO SCH (20:47)
[2017-06-02] MEDS: ATORVASTATIN 10 MG TABLET PO SCH (20:50)
[2017-06-02] MEDS: INSULIN REGULAR, HUMAN 300 UNITS/3 ML VIAL SQ PRN (20:58)
[2017-06-03] VITALS: BP 142/55
[2017-06-03 04:00] VITALS: BP 142/67
[2017-06-03] MEDS: PIPERACILLIN/TAZOBACTAM/D5W 2.25 G in PREMIXED 1 EACH IV SCH ×2 (04:00→10:57)
--- NOTE | 2017-06-03 05:20 | NUR ---
Slept at short interval. IV positional. Continue on IVF and IVPB ATB without s/s of adverse reaction noted. All needs attended and met. No significant event reported all night. Continue current plan of care.
[2017-06-03] MEDS: PANTOPRAZOLE SODIUM 40 MG TABLET.DR PO SCH (05:44)
[2017-06-03] MEDS: BLOOD SUGAR DIAGNOSTIC 1 EACH STRIP VI SCH ×3 (05:59→16:30)
[2017-06-03 07:04] LABS: BASOPHILS # (AUTO) 0.1 K/uL (0.0-8.0); BASOPHILS % (AUTO) 0.8 % (0.0-2.0); EOSINOPHILS # (AUTO) 0.2 K/uL (0.0-0.7); EOSINOPHILS % (AUTO) 3.5 % (0.0-7.0); HEMATOCRIT 29.8 % (31.2-41.9); HEMOGLOBIN 10.3 g/dL (10.9-14.3); MEAN CORPUSCULAR HEMOGLOBIN 31.3 uug (24.7-32.8); MEAN CORPUSCULAR HGB CONC 35 g/dL (32.3-35.6); MEAN CORPUSCULAR VOLUME 90.5 fL (75.5-95.3); MONOCYTES # (AUTO) 0.6 K/uL (2.0-10.0); MONOCYTES % (AUTO) 9.4 % (0.0-11.0); NEUTROPHILS # (AUTO) 4.2 K/uL (1.8-8.9); NEUTROPHILS % (AUTO) 69.3 % (38.5-71.5); PLATELET COUNT (AUTO) 224 K/uL (179-408); WHITE BLOOD COUNT (AUTO) 6.1 K/uL (3.8-11.8)
[2017-06-03 07:11] LABS: CREATININE 1.2 mg/dL (0.6-1.3); MAGNESIUM 1.8 mg/dL (1.8-2.4); PHOSPHOROUS 4.2 mg/dL (2.5-4.9)
[2017-06-03] MEDS: FLUCONAZOLE 200 MG/NS 100ML IV 100 MG in PREMIXED 1 EACH IV SCH (08:00)
[2017-06-03] MEDS: INSULIN REGULAR, HUMAN 300 UNIT/3 ML VIAL SQ PRN ×3 (08:56→17:37)
[2017-06-03] MEDS: PREGABALIN 25 MG CAPSULE PO SCH ×2 (08:57→16:38)
[2017-06-03] MEDS: LACTOBACILLUS RHAMNOSUS GG 1 EACH CAPSULE PO SCH (08:57)
[2017-06-03] MEDS: CHOLECALCIFEROL 1,000 UNIT TABLET PO SCH (08:57)
[2017-06-03] MEDS: MULTIVIT, IRON, MIN NO. 8, FA TABLET PO SCH (08:57)
[2017-06-03] MEDS: LORATADINE 10 MG TABLET PO SCH (08:58)
[2017-06-03] MEDS: ASPIRIN 81 MG TAB.CHEW PO SCH (08:58)
[2017-06-03] MEDS: PROTEIN SUPPLEMENT (PROSTAT) 30 ML LIQUID PO SCH ×2 (08:58→16:38)
[2017-06-03] MEDS: FELODIPINE 2.5 MG TAB.SR.24H PO SCH (08:58)
[2017-06-03] MEDS: TAMSULOSIN HCL 0.4 MG CAP.SR.24H PO SCH (08:58)
[2017-06-03] MEDS: INSULIN DETEMIR 300 UNIT/3 ML CARTRIDGE SQ SCH (08:59)
[2017-06-03] MEDS: ATENOLOL 25 MG TABLET PO SCH (09:23)
--- NOTE | 2017-06-03 10:59 | NUR ---
opt seen on rounding. pt assessed. pt tolerates room air. pt afebrile. pt bp elevated. bs at 133. pt given insulin per level ordered pt took meds whole. no sob noted.pt iv site possibly infiltrated. pt given meds whole as prescribed. will continue to monitor.
[2017-06-03 11:09] VITALS: BP 142/48
[2017-06-03 15:21] VITALS: BP 149/57
[2017-06-03] MEDS: HYDROCODONE/APAP 5-325MG TABLET PO PRN (15:29)
[2017-06-03] MEDS ORDERED: PIPERACILLIN/TAZOBACTAM/D5W 50 ML IV SCH (16:00)
[2017-06-03] MEDS ORDERED: MEROPENEM 0.5 G in IV NORMAL SALINE 50 ML IV SCH (16:00)
[2017-06-03] MEDS ORDERED: INSU100V10 SQ (17:33)
[2017-06-03] MEDS ORDERED: MERO500V IV (17:33)
--- NOTE | 2017-06-03 18:24 | NUR ---
pt stable throughout the day. no signs of fever. pt given pain meds for forearm. iv line changed. pt ate meals and given insulin coverage. no sob noted. pt will be discharged to [facility]. will endorse to shift supervisor rn nurse.
--- NOTE | 2017-06-03 19:11 | NUR ---
pt being dishcarged to [facility]. pt given dishcarge instructions along with use of exitcare on subjects such as fall precaution, sepsis and breathing techniques. pt needs reinforcement due to language barriers. pt signed belongings list. pt given copy of packet. pt stable upon discharge. no sob noted. pt discharged with ambulance.
== END 2017-06-03 19:15 | DRG 871 ==
LOC: ER 21:27 → TELE 05-31 00:53 → MED 05-31 11:50
PROVIDERS: ADMIT Internal Medicine; ATTEND Internal Medicine
DX: A41.9 Sepsis, unspecified organism (principal); N17.0 Acute kidney failure with tubular necrosis; G92 Toxic encephalopathy; D68.59 Other primary thrombophilia; E11.65 Type 2 diabetes mellitus with hyperglycemia; I69.354 Hemiplegia and hemiparesis following cerebral infarction affecting left non-dominant side; N39.0 Urinary tract infection, site not specified; B48.8 Other specified mycoses; N13.2 Hydronephrosis with renal and ureteral calculous obstruction; B96.20 Unspecified Escherichia coli [E. coli] as the cause of diseases classified elsewhere; Z16.12 Extended spectrum beta lactamase (ESBL) resistance; E86.9 Volume depletion, unspecified; Z79.4 Long term (current) use of insulin; E66.9 Obesity, unspecified; Z68.31 Body mass index [BMI] 31.0-31.9, adult; F01.50 Vascular dementia, unspecified severity, without behavioral disturbance, psychotic disturbance, mood disturbance, and anxiety; G47.00 Insomnia, unspecified; E78.5 Hyperlipidemia, unspecified; Z87.81 Personal history of (healed) traumatic fracture; Z91.81 History of falling; K21.9 Gastro-esophageal reflux disease without esophagitis; K59.09 Other constipation; M10.9 Gout, unspecified; M19.90 Unspecified osteoarthritis, unspecified site; M81.0 Age-related osteoporosis without current pathological fracture; Z79.899 Other long term (current) drug therapy; Z79.82 Long term (current) use of aspirin; F41.9 Anxiety disorder, unspecified; F32.9 Major depressive disorder, single episode, unspecified; Z90.49 Acquired absence of other specified parts of digestive tract; I11.9 Hypertensive heart disease without heart failure; D64.9 Anemia, unspecified
CPT/HCPCS: 36415; 70030-TC; 71010; 73501; 76770; 83605; 83690; 83735; 84100; 84156; 84300; 85025; 87040; 87077; 87086; 87400; 93005; A4663; J0696; J1450; J1815; J2185; J2543; J3370; J3475; J3490; J7030; J7060

== ENCOUNTER 2020-02-18 12:41 | Inpatient (IN) | payer MEDICARE, OTHER ==
[~2020-02-18] VITALS: Ht 165.1 cm; Wt 90.7 kg
[~2020-02-18 12:41] MED LIST changes: +ACET325T53 PO; -BISA10SU12 RC; +BISA10SU95 RC; +BLOO-140 IN; -Blood Sugar Diagnostic VI; +CHOL100062 PO; -DEXT50DI8 IV; -DOCU100C36 PO; +DOCU100T2 PO; -FELO10TA3 PO; +FELO10TA44 PO; -GABA-534 PO; -HYDR-3326 PO; +HYDR-3972 PO; -INSU100I19 SQ; -INSU100V28 SQ; -LORA-114 PO; +LORA10TA7 PO; -LOSA25TA13 PO; +LOSA50TA39 PO; +MERO500V21 IV; +MULT-213 PO; +PREG25CA PO; +PROT946L PO; -ZOLP5TAB8 PO
--- NOTE | 2020-02-18 13:00 | NUR ---
Patient brought in by ambulance from [facility] for abdominal pain, pt noted to also have fever, and tachypnea. Placed in Bed 5 initially and then placed in Bed 3 d/t to possible covid per Dr. Simpson. Pt attached to bedside monitor. 20g inserted to Lt AC, blood drawn and sent to lab. Seen and examined by Dr. Simpson.
[2020-02-18] MEDS ORDERED: PIPERACILLIN SODIUM/TAZOBACTAM 3.375 G in IV DEXTROSE 5% 50 ML IV ONE (13:15)
[2020-02-18] MEDS ORDERED: ACETAMINOPHEN 325 MG SUPP RC ONE (13:15)
[2020-02-18] MEDS ORDERED: IV NORMAL SALINE 1000 ML BAG IV ONE ×2 (13:15→14:30)
[2020-02-18] MEDS ORDERED: ACETAMINOPHEN 650 MG SUPP.RECT RC ONE ×2 (13:21→13:30)
[2020-02-18] MEDS ORDERED: PIPERACILLIN/TAZOBACTAM/D5W 50 ML IV ONE (13:21)
[2020-02-18 13:53] LABS: BASOPHILS % (AUTO) 0.2 % (0.0-2.0); HEMATOCRIT 32.4 % (31.2-41.9); HEMOGLOBIN 11.1 g/dL (10.9-14.3); LYMPHOCYTES # (AUTO) 0.3 K/uL (20.0-40.0); MEAN CORPUSCULAR HEMOGLOBIN 31.2 uug (24.7-32.8); MEAN CORPUSCULAR HGB CONC 34 g/dL (32.3-35.6); MEAN CORPUSCULAR VOLUME 91.2 fL (75.5-95.3); MONOCYTES # (AUTO) 0.1 K/uL (2.0-10.0); MONOCYTES % (AUTO) 1.8 % (0.0-11.0); NEUTROPHILS # (AUTO) 7.1 K/uL (1.8-8.9); PLATELET COUNT (AUTO) 183 K/uL (179-408); RED BLOOD CELL COUNT(AUTO) 3.55 MIL/uL (3.63-4.92); WHITE BLOOD COUNT (AUTO) 7.5 K/uL (3.8-11.8)
[2020-02-18 13:58] LABS: CREATININE 3.5 mg/dL (0.6-1.3); POTASSIUM 4.2 mmol/L (3.5-5.1)
--- NOTE | 2020-02-18 14:11 | NUR ---
Dr. Simpson recieved critical value of lactic acid
[2020-02-18 14:12] LABS: BILIRUBIN,DIRECT 0.2 mg/dL (0.0-0.2); BILIRUBIN,TOTAL 0.6 mg/dL (0.2-1.0); TOTAL PROTEIN, SERUM 7.5 g/dL (6.4-8.2)
[2020-02-18 14:19] LABS: *BILIRUBIN,URIN NEGATIVE (NEGATIVE); *CLARITY,URINE CLOUDY (CLEAR); *COLOR,URINE LIGHT YELLOW (YELLOW); *KETONES,URINE NEGATIVE (NEGATIVE); *UROBILINOGEN,URINE 0.2 E.U./dl (NORMAL); LEUKOCYTE ESTERASE ,URINE 2+ (NEGATIVE); NITRITE, URINE NEGATIVE (NEGATIVE); PH,URINE 5.5 (5.0-8.0); UGLUCOSE NEGATIVE (NEGATIVE)
[2020-02-18 14:20] LABS: *BLOOD, URINE TRACE LYSED (NEGATIVE)
[2020-02-18] MEDS ORDERED: VANCOMYCIN IV 1,000 MG in IV DEXTROSE 5% 250 ML IV ONE (14:30)
--- NOTE | 2020-02-18 14:33 | NUR ---
attempted to give report to Clair, per Jordi it will be at least an hour before report can be given because "she's maxed out."
[2020-02-18] MEDS ORDERED: VANCOMYCIN IV 200 ML ONE (14:40)
[2020-02-18] MEDS ORDERED: LINA5TAB PO (14:46)
[2020-02-18] MEDS ORDERED: INSU100I26 SQ ×2 (14:46)
[2020-02-18] MEDS ORDERED: METO50TA16 PO (14:46)
[2020-02-18] MEDS ORDERED: NITROGLYCERIN OINT TD (14:46)
[2020-02-18] MEDS ORDERED: HYDR-4075 PO (14:46)
[2020-02-18] MEDS ORDERED: ISOS30TA9 PO (14:46)
[2020-02-18] MEDS ORDERED: INSU100V42 SQ ×2 (14:46)
[2020-02-18] MEDS ORDERED: HYDR-4384 PO ×2 (14:46)
[2020-02-18] MEDS ORDERED: AMLO10TA7 PO (14:46)
[2020-02-18] MEDS ORDERED: LIDOCAINE PATCH 5% TOP (14:46)
[2020-02-18] MEDS ORDERED: CHOL10002 PO (14:46)
[2020-02-18] MEDS ORDERED: DOCU100C36 PO (14:46)
[2020-02-18] MEDS ORDERED: POLY17PO4 PO (14:46)
--- NOTE | 2020-02-18 15:35 | NUR ---
report given to Elrosa in Telemetry stated that we cannot send patient until covid result is available
[2020-02-18 16:24] LABS: BACTERIA,URINE 4 /HPF (NONE SEEN); SQUAMOUS EPITHELIAL CELL,UR FEW /HPF (NONE SEEN); URINE AMORPHOUS URATE FEW /HPF
[2020-02-18] MEDS ORDERED: MORPHINE SULFATE 2 MG/1 ML DISP.SYRIN IV ONE (17:00)
[2020-02-18] MEDS ORDERED: ONDANSETRON 4 MG/2 ML VIAL IV ONE (17:00)
[2020-02-18] MEDS ORDERED: ONDANSETRON 4 MG/2 ML VIAL ONE (17:02)
[2020-02-18] MEDS ORDERED: MORPHINE SULFATE 2 MG/1 ML DISP.SYRIN ONE (17:02)
--- NOTE | 2020-02-18 17:55 | NUR ---
Patient transferred to Telemetry unit via [place]. Further report given to [place] RN.
[2020-02-18 18:18] VITALS: BP 121/52
--- NOTE | 2020-02-18 18:30 | NUR ---
Pt received from ER. PT sob tachypneic 30resp/min using accessory abd muscles. Lungs diminished on upper lobes. TELE SNR. NOTED bruising on right abd, small redness on left buttock, and bruising on left toes. Call light is within reach.
[2020-02-18] MEDS ORDERED: LIDOCAINE 5% PATCH TD SCH (20:00)
[2020-02-18] MEDS: PIPERACILLIN/TAZO 2.25 G in IV DEXTROSE 5% 50 ML IV SCH (20:26)
[2020-02-18] MEDS: IV 1/2NS 1000 ML 1,000 ML IV PRN (20:26)
[2020-02-18] MEDS: ACETAMINOPHEN 325 MG TABLET PO PRN (20:27)
[2020-02-18 20:30] VITALS: BP 123/34
[2020-02-18] MEDS ORDERED: INSULIN REGULAR, HUMAN 300 UNIT/3 ML VIAL SQ PRN (20:30)
[2020-02-18] MEDS ORDERED: DEXTROSE 50% 50 ML DISP.SYRIN IV PRN (20:30)
[2020-02-18] MEDS ORDERED: ACETAMINOPHEN 325 MG SUPP RC PRN (20:45)
[2020-02-18] MEDS ORDERED: BLOOD SUGAR DIAGNOSTIC 1 EACH STRIP VI SCH (21:00)
[2020-02-18] MEDS: MORPHINE SULFATE 2 MG/1 ML DISP.SYRIN IV PRN (21:59)
[2020-02-18 22:00] VITALS: BP 125/65
[2020-02-18 23:49] VITALS: BP 112/43
[2020-02-19] MEDS ORDERED: DEXTROSE 50% 50 ML DISP.SYRIN IV PRN
[2020-02-19] MEDS: PIPERACILLIN/TAZO 2.25 G in IV DEXTROSE 5% 50 ML IV SCH ×3 (02:39→13:37)
[2020-02-19] MEDS: MORPHINE SULFATE 2 MG/1 ML DISP.SYRIN IV PRN ×2 (02:51→08:39)
[2020-02-19 04:00] VITALS: BP 125/48
[2020-02-19] MEDS ORDERED: ACETAMINOPHEN 325 MG SUPP ONE (05:00)
--- NOTE | 2020-02-19 05:10 | NUR ---
Temperature 100.0. Tylenol suppository given and cooling measures applied. Will continue to monitor patient.
[2020-02-19] MEDS: BLOOD SUGAR DIAGNOSTIC 1 EACH STRIP VI SCH ×3 (05:17→17:18)
[2020-02-19] MEDS: PANTOPRAZOLE SODIUM 40 MG TABLET.DR PO SCH (06:02)
--- NOTE | 2020-02-19 06:13 | NUR ---
Patient shows no signs or symptoms of distress at this time. Temperature now 98.7. NSR on tele monitor. Will endorse patient to day shift nurse in stable condition.
[2020-02-19] MEDS: CHOLECALCIFEROL 1,000 UNIT TABLET PO SCH (08:33)
[2020-02-19] MEDS: LINAGLIPTIN 5 MG TABLET PO SCH (08:33)
[2020-02-19] MEDS: DOCUSATE SODIUM 100 MG CAPSULE PO SCH ×3 (08:33→17:00)
[2020-02-19] MEDS: METOPROLOL TARTRATE 50 MG TABLET PO SCH ×2 (08:34→17:18)
[2020-02-19] MEDS: ISOSORBIDE DINITRATE 10 MG TABLET PO SCH (08:34)
[2020-02-19] MEDS: AMLODIPINE 10 MG TABLET PO SCH (08:35)
[2020-02-19] MEDS: ASPIRIN 81 MG TAB.CHEW PO SCH (08:35)
[2020-02-19 08:58] LABS: BILIRUBIN,TOTAL 0.5 mg/dL (0.2-1.0); CREATININE 4.3 mg/dL (0.6-1.3); PHOSPHOROUS 4.7 mg/dL (2.5-4.9); POTASSIUM 5.6 mmol/L (3.5-5.1); TOTAL PROTEIN, SERUM 6.5 g/dL (6.4-8.2)
[2020-02-19] MEDS ORDERED: INSULIN GLARGINE,HUM 300 UNITS/3 ML CARTRIDGE SQ SCH ×2 (09:00→21:00)
[2020-02-19] MEDS: INSULIN REGULAR, HUMAN 300 UNIT/3 ML VIAL SQ PRN ×3 (09:23→17:21)
[2020-02-19 09:37] LABS: THYROID STIMULATING HORMONE 1.23 mIU/mL (0.358-3.740)
[2020-02-19 09:42] LABS: MAGNESIUM 1.2 mg/dL (1.8-2.4)
[2020-02-19] MEDS ORDERED: ENOXAPARIN SODIUM 40 MG/0.4 ML DISP.SYRIN SQ SCH (10:00)
[2020-02-19 10:17] LABS: BASOPHILS % (AUTO) 0.2 % (0.0-2.0); EOSINOPHILS # (AUTO) 0.1 K/uL (0.0-0.7); EOSINOPHILS % (AUTO) 0.5 % (0.0-7.0); HEMATOCRIT 29.8 % (31.2-41.9); HEMOGLOBIN 9.6 g/dL (10.9-14.3); LYMPHOCYTES # (AUTO) 1.3 K/uL (20.0-40.0); LYMPHOCYTES % (AUTO) 5.5 % (20.5-51.5); MEAN CORPUSCULAR HEMOGLOBIN 30.8 uug (24.7-32.8); MEAN CORPUSCULAR HGB CONC 32 g/dL (32.3-35.6); MEAN CORPUSCULAR VOLUME 95.2 fL (75.5-95.3); MONOCYTES # (AUTO) 0.7 K/uL (2.0-10.0); MONOCYTES % (AUTO) 2.9 % (0.0-11.0); NEUTROPHILS # (AUTO) 21.8 K/uL (1.8-8.9); NEUTROPHILS % (AUTO) 90.9 % (38.5-71.5); RED BLOOD CELL COUNT(AUTO) 3.13 MIL/uL (3.63-4.92); WHITE BLOOD COUNT (AUTO) 23.9 K/uL (3.8-11.8)
[2020-02-19 10:21] LABS: PLATELET COUNT (AUTO) 77 K/uL (179-408)
--- NOTE | 2020-02-19 11:35 | NUR ---
WOUND CARE CONSULT: PT PRESENTS WITH SOME REDNESS AND TENDERNESS TO LEFT GREAT TOE, PRESENT ON ADMISSION. RECOMMEND DPM CONSULT. DR STACY NOTIFIED OF CONSULT REQUEST. FIRST STEP LOW AIRLOSS MATTRESS IS ON ORDER. CURRENT JANA SCORE IS 12. WILL SEE PRN. IN AGREEMENT WITH PLAN OF CARE.
[2020-02-19 11:44] VITALS: BP 101/60
[2020-02-19] MEDS ORDERED: Z GUARD REMEDY PASTE 57 GM TUBE TOP PRN (11:45)
[2020-02-19 12:26] LABS: BAND % (MANUAL) 3 % (0-10); EOSINOPHILS % (MANUAL) 1 % (0-8); LYMPHOCYTES % (MANUAL) 6 % (20-40); MONOCYTES % (MANUAL) 3 % (2-10); NEUTROPHILS % (MANUAL) 87 % (42-75)
[2020-02-19] MEDS ORDERED: SODIUM POLYSTYRENE SULFONATE 15 G/60 ML LIQUID UDC PO ONE (13:45)
[2020-02-19] MEDS ORDERED: FUROSEMIDE 40 MG/4 ML VIAL IV ONE (13:45)
[2020-02-19] MEDS: ONDANSETRON 4 MG/2 ML VIAL IV PRN (14:30)
--- NOTE | 2020-02-19 14:39 | NUR ---
Received patient awake in bed with oxygen via nasal cannula at 2 LPM with SAO2- 95%. Patient complaint of back pain, scale of 8/10. Morphine PRN given. Patient vomited green fluid this morning. IT TECHNICAL ARCHITECT Vanda aware then vomited mild brown liquid from the medicine given. Zofran injection given. Lactic acid critical value 3.4 relayed to JASMIN rebolledo. no new order. Patient seen and examined by MD Mcadams with Kayexelate PO and lasix 4ml IV injection fro hyperkalemia. Patient continue IV ATB treatment for UTI pyelonephritis. Patient continue NPO for swallowing evaluation for dysphagia. Patient ongoing IV D 0.45% NS at 60cc/hr. not in distress. will continue monitor
[2020-02-19 14:58] LABS: *BILIRUBIN,URIN NEGATIVE (NEGATIVE); *BLOOD, URINE 2+ (NEGATIVE); *CLARITY,URINE CLOUDY (CLEAR); *COLOR,URINE YELLOW (YELLOW); *KETONES,URINE NEGATIVE (NEGATIVE); *UROBILINOGEN,URINE 0.2 E.U./dl (NORMAL); LEUKOCYTE ESTERASE ,URINE 3+ (NEGATIVE); NITRITE, URINE NEGATIVE (NEGATIVE); PH,URINE 5.5 (5.0-8.0); UGLUCOSE NEGATIVE (NEGATIVE)
[2020-02-19 15:01] LABS: *CREATININE,URINE 79.3 mg/dL (30-125); *URINE TOTAL PROTEIN RANDOM 200.5 mg/dL (<150/24HR)
[2020-02-19 16:00] VITALS: BP 135/52
[2020-02-19] MEDS ORDERED: VANCOMYCIN IV 500 MG in IV DEXTROSE 5% 100 ML IV SCH (16:00)
[2020-02-19 16:09] LABS: CREATININE 4.5 mg/dL (0.6-1.3); POTASSIUM 5.1 mmol/L (3.5-5.1)
--- NOTE | 2020-02-19 17:06 | NUR ---
Patient seen and examined by Speech therapy for dysphagia. Order continue NPO for further observation. Urine collected for culture and lab order by MD Mcadams. will continue monitor
[2020-02-19] MEDS: MIRALAX 17 GM POWD.PACK PO PRN (17:41)
[2020-02-19 17:56] LABS: BACTERIA,URINE MANY /HPF (NONE SEEN); MUCUS,URINE MANY /LPF (0-FEW); RBC,URINE 20-50 /HPF (0-3); SQUAMOUS EPITHELIAL CELL,UR MODERATE /HPF (NONE SEEN)
[2020-02-19 17:57] LABS: WBC,URINE 80-100 /HPF (0-3)
--- NOTE | 2020-02-19 19:45 | NUR ---
Received patient awake but confused. Patient shows no signs or symptoms of distress at this time. Vital signs stable. NSR on tele monitor. NPO as per ST recommendation. Bed set to lowest position. Call light within reach. Side rails X2 are up. Will continue to monitor patient.
[2020-02-19] MEDS ORDERED: MEROPENEM 500 MG in IV NORMAL SALINE 50 ML IV ONE (20:00)
[2020-02-19 20:05] VITALS: BP 130/48
[2020-02-19] MEDS: Z GUARD REMEDY PASTE 57 GM TUBE TOP SCH (21:20)
[2020-02-19] MEDS: IV 1/2NS 1000 ML 1,000 ML IV PRN (21:40)
[2020-02-20] VITALS: BP 134/43
[2020-02-20] MEDS: BLOOD SUGAR DIAGNOSTIC 1 EACH STRIP VI SCH ×5 (00:35→23:36)
[2020-02-20] MEDS: MORPHINE SULFATE 2 MG/1 ML DISP.SYRIN IV PRN ×2 (02:49→12:36)
[2020-02-20 04:00] VITALS: BP 123/57
[2020-02-20] MEDS: PANTOPRAZOLE SODIUM 40 MG TABLET.DR PO SCH (06:02)
--- NOTE | 2020-02-20 06:05 | NUR ---
Patient shows no signs or symptoms of distress at this time. Vital signs stable. NSR on tele monitor. No fever noted at this time. Patient sleeping intermittently throughout the night. Will endorse patient to day shift nurse in stable condition.
[2020-02-20 06:56] LABS: BASOPHILS # (AUTO) 0.1 K/uL (0.0-8.0); BASOPHILS % (AUTO) 0.5 % (0.0-2.0); EOSINOPHILS % (AUTO) 0.1 % (0.0-7.0); HEMATOCRIT 28.7 % (31.2-41.9); HEMOGLOBIN 9.6 g/dL (10.9-14.3); LYMPHOCYTES # (AUTO) 1.4 K/uL (20.0-40.0); LYMPHOCYTES % (AUTO) 5.4 % (20.5-51.5); MEAN CORPUSCULAR HEMOGLOBIN 31.1 uug (24.7-32.8); MEAN CORPUSCULAR HGB CONC 34 g/dL (32.3-35.6); MEAN CORPUSCULAR VOLUME 92.6 fL (75.5-95.3); MONOCYTES # (AUTO) 0.8 K/uL (2.0-10.0); NEUTROPHILS # (AUTO) 24.1 K/uL (1.8-8.9); PLATELET COUNT (AUTO) 74 K/uL (179-408); WHITE BLOOD COUNT (AUTO) 26.4 K/uL (3.8-11.8)
[2020-02-20 07:12] LABS: BILIRUBIN,TOTAL 0.6 mg/dL (0.2-1.0); CREATININE 4.9 mg/dL (0.6-1.3); MAGNESIUM 1.5 mg/dL (1.8-2.4); PHOSPHOROUS 4.6 mg/dL (2.5-4.9); POTASSIUM 4.7 mmol/L (3.5-5.1); TOTAL PROTEIN, SERUM 6.6 g/dL (6.4-8.2)
--- NOTE | 2020-02-20 07:30 | NUR ---
Received patient resting in bed, dozing on and off. No respiratory distress noted at this time. Patient is on 2L of oxygen nasal cannula. Patient is currently NPO and will remain until she can pass a swallow evaluation. Patient is running 1/2 NS in IV on the right AC. No fevers noted at this time and patients vital signs are within normal limits. Patient is at a 45 degree angle to prevent aspiration and all other other safety precautions has been put in place. Will continue to monitor.
[2020-02-20] MEDS: MEROPENEM 500 MG in IV NORMAL SALINE 50 ML IV SCH ×2 (08:04→20:36)
--- NOTE | 2020-02-20 08:17 | NUR ---
Just checked lab results, patient has a BUN of 91. Not called by lab because patient's previous level was 80. Will continue to monitor.
[2020-02-20 09:00] VITALS: BP 136/54
[2020-02-20] MEDS: METOPROLOL TARTRATE 50 MG TABLET PO SCH ×2 (09:00→17:00)
[2020-02-20] MEDS: CHOLECALCIFEROL 1,000 UNIT TABLET PO SCH (09:00)
[2020-02-20] MEDS: ASPIRIN 81 MG TAB.CHEW PO SCH (09:00)
[2020-02-20] MEDS: AMLODIPINE 10 MG TABLET PO SCH (09:00)
[2020-02-20] MEDS: Z GUARD REMEDY PASTE 57 GM TUBE TOP SCH ×2 (09:00→20:47)
[2020-02-20] MEDS: ISOSORBIDE DINITRATE 10 MG TABLET PO SCH (09:00)
[2020-02-20] MEDS: LINAGLIPTIN 5 MG TABLET PO SCH (09:00)
[2020-02-20] MEDS: DOCUSATE SODIUM 100 MG CAPSULE PO SCH ×2 (09:00→17:00)
--- NOTE | 2020-02-20 09:00 | NUR ---
Did not administer morning medications because of patient's NPO diagnosis and concurrently failed swallow evaluation. Will continue to monitor.
[2020-02-20] MEDS ORDERED: DEXTROSE 50% 50 ML DISP.SYRIN IV PRN (10:30)
--- NOTE | 2020-02-20 12:50 | NUR ---
Patient is NPO and not eating so will not cover BG with insulin. Speech is in with patient right now. Will wait for her assessment. Patient is also reports that she feels nausea, like she want to vomit and is also feeling dizzy. Will continue to monitor.
--- NOTE | 2020-02-20 13:12 | NUR ---
Patient failed swallow evaluation, she vomited and is feeling nausea and dizzy. Will administer Zofran as ordered. Hospitalist Vanda made aware, also informed her about magnesium level. Will continue to monitor.
[2020-02-20] MEDS ORDERED: MAGNESIUM SULFATE/D5W 100 ML IV SCH (13:15)
[2020-02-20] MEDS: ONDANSETRON 4 MG/2 ML VIAL IV PRN (13:23)
[2020-02-20 15:17] VITALS: BP 140/54
[2020-02-20 17:06] LABS: BAND % (MANUAL) 15 % (0-10); LYMPHOCYTES % (MANUAL) 8 % (20-40); METAMYELOCYTES % 1 % (0-1); MONOCYTES % (MANUAL) 2 % (2-10); NEUTROPHILS % (MANUAL) 74 % (42-75)
[2020-02-20] MEDS: INSULIN REGULAR, HUMAN 300 UNIT/3 ML VIAL SQ PRN ×2 (18:46→23:43)
[2020-02-20 20:09] VITALS: BP 122/30
--- NOTE | 2020-02-20 20:36 | NUR ---
Left patient resting comfortably in bed. No sign of respiratory distress noted at this time. . Gave all medications as ordered. Call light with in reach. Safety measures in place. Will endorse to the oncoming nurse.
[2020-02-20] MEDS: IV 1/2NS 1000 ML 1,000 ML IV PRN (20:37)
--- NOTE | 2020-02-20 20:40 | NUR ---
Received pt resting comfortably in bed. Pt denies any acute distress or pain at this time. IV is intact with .45% NS running at 60cc. Pt's lopez is intact and draining clear yellow urine. Pt is on aspiration precaution and maintains HOB at 45degrees. Pt is NPO, including medications d/t failed swallow evaluation. Safety measures in place. Call light within reach. Will continue with the plan of care.
[2020-02-21 04:09] VITALS: BP 114/44
[2020-02-21] MEDS: BLOOD SUGAR DIAGNOSTIC 1 EACH STRIP VI SCH ×4 (05:57→21:28)
[2020-02-21] MEDS: PANTOPRAZOLE SODIUM 40 MG TABLET.DR PO SCH (06:09)
[2020-02-21] MEDS: INSULIN REGULAR, HUMAN 300 UNIT/3 ML VIAL SQ PRN ×4 (06:25→22:40)
--- NOTE | 2020-02-21 06:54 | NUR ---
Pt slept intermittently through the night. Pt has no s/s of acute distress at this time. Comfort care and needs attended. Repositioned for comfort. Aspiration and fall precaution maintained. Morning medication was not given d/t NPO status and concurrent failed swallow evaluation. V/S stable on 2L NC. Afebrile. Felix is intact and draining well. IV intact with 0.45% NS running at 60cc. Safety measures in place. Call light within reach. Will endorse to the oncoming nurse accordingly.
[2020-02-21 06:56] LABS: PHOSPHOROUS 5.6 mg/dL (2.5-4.9)
[2020-02-21 07:03] LABS: CREATININE 5.1 mg/dL (0.6-1.3); POTASSIUM 5.2 mmol/L (3.5-5.1)
--- NOTE | 2020-02-21 07:17 | NUR ---
Pt has a critical lab of BUN 97. Dr. Qureshi was notified. Will endorse to the morning nurse.
[2020-02-21] MEDS: MEROPENEM 500 MG in IV NORMAL SALINE 50 ML IV SCH ×2 (07:32→21:03)
[2020-02-21 07:36] LABS: BASOPHILS # (AUTO) 0.1 K/uL (0.0-8.0); BASOPHILS % (AUTO) 0.4 % (0.0-2.0); EOSINOPHILS # (AUTO) 0.1 K/uL (0.0-0.7); EOSINOPHILS % (AUTO) 0.3 % (0.0-7.0); HEMATOCRIT 25.2 % (31.2-41.9); HEMOGLOBIN 8.2 g/dL (10.9-14.3); LYMPHOCYTES # (AUTO) 1.5 K/uL (20.0-40.0); LYMPHOCYTES % (AUTO) 4.9 % (20.5-51.5); MEAN CORPUSCULAR HEMOGLOBIN 30.3 uug (24.7-32.8); MEAN CORPUSCULAR HGB CONC 33 g/dL (32.3-35.6); MEAN CORPUSCULAR VOLUME 93.3 fL (75.5-95.3); MONOCYTES # (AUTO) 1.1 K/uL (2.0-10.0); MONOCYTES % (AUTO) 3.8 % (0.0-11.0); NEUTROPHILS % (AUTO) 90.6 % (38.5-71.5); PLATELET COUNT (AUTO) 95 K/uL (179-408); RED BLOOD CELL COUNT(AUTO) 2.71 MIL/uL (3.63-4.92); WHITE BLOOD COUNT (AUTO) 29.9 K/uL (3.8-11.8)
[2020-02-21] MEDS: ASPIRIN 81 MG TAB.CHEW PO SCH ×2 (08:09→11:24)
[2020-02-21] MEDS: ISOSORBIDE DINITRATE 10 MG TABLET PO SCH ×2 (08:09→11:24)
[2020-02-21] MEDS: DOCUSATE SODIUM 100 MG CAPSULE PO SCH ×3 (08:09→16:01)
[2020-02-21] MEDS: CHOLECALCIFEROL 1,000 UNIT TABLET PO SCH ×2 (08:10→11:23)
[2020-02-21] MEDS: METOPROLOL TARTRATE 50 MG TABLET PO SCH ×3 (08:10→16:01)
[2020-02-21] MEDS: LINAGLIPTIN 5 MG TABLET PO SCH ×2 (08:10→11:24)
[2020-02-21] MEDS: AMLODIPINE 10 MG TABLET PO SCH ×2 (08:10→11:24)
[2020-02-21] MEDS: Z GUARD REMEDY PASTE 57 GM TUBE TOP SCH ×2 (08:11→21:28)
[2020-02-21] MEDS: MORPHINE SULFATE 2 MG/1 ML DISP.SYRIN IV PRN ×3 (09:07→21:06)
[2020-02-21 11:55] VITALS: BP 130/58
[2020-02-21] MEDS: LIDOCAINE 5% PATCH TD SCH ×2 (12:12)
[2020-02-21] MEDS ORDERED: DEXTROSE 50% 50 ML DISP.SYRIN IV PRN (12:45)
[2020-02-21] MEDS ORDERED: SODIUM POLYSTYRENE SULFONATE 15 G/60 ML LIQUID UDC PO ONE (13:45)
[2020-02-21 15:57] VITALS: BP 144/51
[2020-02-21 20:09] VITALS: BP 133/77
[2020-02-22] MEDS: IV 1/2NS 1000 ML 1,000 ML IV PRN ×2 (00:13→21:22)
[2020-02-22] MEDS: ACETAMINOPHEN 325 MG TABLET PO PRN (00:13)
[2020-02-22] MEDS: MORPHINE SULFATE 2 MG/1 ML DISP.SYRIN IV PRN ×3 (01:36→23:27)
[2020-02-22] MEDS: PANTOPRAZOLE SODIUM 40 MG TABLET.DR PO SCH (06:06)
[2020-02-22 06:46] LABS: BASOPHILS # (AUTO) 0.1 K/uL (0.0-8.0); BASOPHILS % (AUTO) 0.3 % (0.0-2.0); EOSINOPHILS # (AUTO) 0.3 K/uL (0.0-0.7); EOSINOPHILS % (AUTO) 1.3 % (0.0-7.0); HEMATOCRIT 25.3 % (31.2-41.9); HEMOGLOBIN 8.4 g/dL (10.9-14.3); LYMPHOCYTES # (AUTO) 1.6 K/uL (20.0-40.0); LYMPHOCYTES % (AUTO) 7.3 % (20.5-51.5); MEAN CORPUSCULAR HEMOGLOBIN 30.7 uug (24.7-32.8); MEAN CORPUSCULAR HGB CONC 33 g/dL (32.3-35.6); MEAN CORPUSCULAR VOLUME 92.6 fL (75.5-95.3); MONOCYTES # (AUTO) 1.4 K/uL (2.0-10.0); MONOCYTES % (AUTO) 6.4 % (0.0-11.0); NEUTROPHILS # (AUTO) 18.3 K/uL (1.8-8.9); NEUTROPHILS % (AUTO) 84.7 % (38.5-71.5); PLATELET COUNT (AUTO) 104 K/uL (179-408); RED BLOOD CELL COUNT(AUTO) 2.74 MIL/uL (3.63-4.92); WHITE BLOOD COUNT (AUTO) 21.6 K/uL (3.8-11.8)
[2020-02-22 07:02] LABS: CREATININE 5.2 mg/dL (0.6-1.3); POTASSIUM 4.6 mmol/L (3.5-5.1)
[2020-02-22 07:29] LABS: PHOSPHOROUS 6.4 mg/dL (2.5-4.9)
[2020-02-22] MEDS: BLOOD SUGAR DIAGNOSTIC 1 EACH STRIP VI SCH ×4 (07:37→20:31)
--- NOTE | 2020-02-22 07:40 | NUR ---
Patient in bed, awake and verbally responsive. On Oxygen at 2L via nasal canula, sat 96%. No SOB. No complain of pain or discomfort. Afebrile. kept clean and comfortable. Will continue to monitor.
[2020-02-22] MEDS: INSULIN REGULAR, HUMAN 300 UNIT/3 ML VIAL SQ PRN ×4 (07:41→20:36)
[2020-02-22] MEDS: MEROPENEM 500 MG in IV NORMAL SALINE 50 ML IV SCH (07:51)
--- NOTE | 2020-02-22 08:05 | NUR ---
Received a Critical result from Labs, BUN 101 Cr 5.2, Dr. Qureshi made aware
[2020-02-22] MEDS: LIDOCAINE 5% PATCH TD SCH ×2 (08:15)
[2020-02-22] MEDS: DOCUSATE SODIUM 100 MG CAPSULE PO SCH ×2 (08:19→16:50)
[2020-02-22] MEDS: LINAGLIPTIN 5 MG TABLET PO SCH (08:19)
[2020-02-22] MEDS: CHOLECALCIFEROL 1,000 UNIT TABLET PO SCH (08:19)
[2020-02-22] MEDS: ASPIRIN 81 MG TAB.CHEW PO SCH (08:20)
[2020-02-22] MEDS: METOPROLOL TARTRATE 50 MG TABLET PO SCH ×2 (08:20→17:00)
[2020-02-22] MEDS: ISOSORBIDE DINITRATE 10 MG TABLET PO SCH (08:20)
[2020-02-22] MEDS: AMLODIPINE 10 MG TABLET PO SCH (08:21)
[2020-02-22] MEDS: Z GUARD REMEDY PASTE 57 GM TUBE TOP SCH ×2 (08:28→20:33)
[2020-02-22 11:04] VITALS: BP 132/55
[2020-02-22] MEDS ORDERED: SORBITOL 70% SOLUTION 30 ML UDC PO ONE (11:45)
[2020-02-22] MEDS: LACTULOSE 20 G/30 ML LIQUID UDC PO SCH ×2 (11:51→20:33)
[2020-02-22] MEDS: HEPARIN SODIUM,PORCINE 1,000 UNITS/ML VIAL XX ONE ×2 (13:00→14:00)
--- NOTE | 2020-02-22 13:30 | NUR ---
Madison CASTELLANOS and Dr. plummer at bedside for HD cath insertion.
--- NOTE | 2020-02-22 14:00 | NUR ---
Heparin 5000 units/5ml given by felicita JOURNEYMAN WIREMAN at bedside.
[2020-02-22 15:04] VITALS: BP 137/57
--- NOTE | 2020-02-22 18:21 | NUR ---
Patient in bed, awake and verbally responsive. On Oxygen at 2L via nasal canula, sat 96%. Right IJ Ottoniel cath intact. No Bleeding noted. Dialysis on going. Pain medication for Right Neck Pain. All needs attended and met. kept clean and comfortable. Will endorse to Oncoming Nurse.
[2020-02-22] MEDS: ONDANSETRON 4 MG/2 ML VIAL IV PRN (18:44)
--- NOTE | 2020-02-22 19:30 | NUR ---
Report received. Patient admitted 02/18/2020 DX: Sepsis, UTI and ARF. Code status: DNR. Patient AA, dialysis in progress. Addendum: 02/23/20 at 0022 by NOAH WALLACE RN Amended: Links added. Addendum: 02/23/20 at 0029 by NOAH WALLACE RN Amended: Links added. Addendum: 02/23/20 at 0031 by NOAH WALLACE RN Amended: Links added.
--- NOTE | 2020-02-22 20:00 | NUR ---
Dialysis completed; 500ml fluids out as per Fredo plastic sheets finishing supervisor. Patient awake, follows commands appropriately. L arm and leg flaccid; with HX of CVA. RIJ dialysis catheter and MINE midline intact.
[2020-02-22 20:03] VITALS: BP 167/60
--- NOTE | 2020-02-22 21:00 | NUR ---
Incontinent of small brown semi liquid stools. PM care done; skin care provided. Turned and repositioned. Addendum: 02/23/20 at 0029 by NOAH WALLACE RN Amended: Links added. Addendum: 02/23/20 at 0031 by NOAH WALLACE RN Amended: Links added.
--- NOTE | 2020-02-22 23:25 | NUR ---
Grunting; medicated with Morphine IV for c/o back pains. Addendum: 02/23/20 at 0031 by NOAH WALLACE RN Amended: Links added.
[2020-02-23] MEDS: MORPHINE SULFATE 2 MG/1 ML DISP.SYRIN IV PRN ×2 (03:58→15:17)
[2020-02-23 05:01] VITALS: BP 160/58
--- NOTE | 2020-02-23 05:37 | NUR ---
Turned and repositioned for comfort. Addendum: 02/23/20 at 0537 by NOAH WALLACE RN Amended: Links added.
[2020-02-23] MEDS: PANTOPRAZOLE SODIUM 40 MG TABLET.DR PO SCH (06:17)
[2020-02-23 06:42] LABS: BASOPHILS % (AUTO) 0.3 % (0.0-2.0); EOSINOPHILS # (AUTO) 0.2 K/uL (0.0-0.7); EOSINOPHILS % (AUTO) 1.4 % (0.0-7.0); HEMATOCRIT 24.6 % (31.2-41.9); HEMOGLOBIN 8.2 g/dL (10.9-14.3); LYMPHOCYTES # (AUTO) 1.2 K/uL (20.0-40.0); LYMPHOCYTES % (AUTO) 9.2 % (20.5-51.5); MEAN CORPUSCULAR HEMOGLOBIN 30.7 uug (24.7-32.8); MEAN CORPUSCULAR HGB CONC 33 g/dL (32.3-35.6); MEAN CORPUSCULAR VOLUME 92.5 fL (75.5-95.3); MONOCYTES # (AUTO) 1.3 K/uL (2.0-10.0); MONOCYTES % (AUTO) 10.2 % (0.0-11.0); NEUTROPHILS # (AUTO) 10.3 K/uL (1.8-8.9); NEUTROPHILS % (AUTO) 78.9 % (38.5-71.5); PLATELET COUNT (AUTO) 71 K/uL (179-408); RED BLOOD CELL COUNT(AUTO) 2.66 MIL/uL (3.63-4.92); WHITE BLOOD COUNT (AUTO) 13.1 K/uL (3.8-11.8)
[2020-02-23] MEDS: BLOOD SUGAR DIAGNOSTIC 1 EACH STRIP VI SCH ×4 (06:46→20:03)
[2020-02-23 07:00] LABS: CREATININE 3.5 mg/dL (0.6-1.3); POTASSIUM 4.3 mmol/L (3.5-5.1)
--- NOTE | 2020-02-23 08:00 | NUR ---
RECEIVED PATIENT WITH DIALYSIS ON GOING AWAKE ALERT AND OPEN EYES TO TOUCH, PAIN. NO SS OF PAIN OR DISTRESS. HEDIALYSIS ON GOING
[2020-02-23] MEDS: MEROPENEM 500 MG in IV NORMAL SALINE 50 ML IV SCH (09:47)
[2020-02-23] MEDS: LACTULOSE 20 G/30 ML LIQUID UDC PO SCH (09:47)
[2020-02-23] MEDS: CHOLECALCIFEROL 1,000 UNIT TABLET PO SCH (09:48)
[2020-02-23] MEDS: Z GUARD REMEDY PASTE 57 GM TUBE TOP SCH ×2 (09:48→20:03)
[2020-02-23] MEDS: LIDOCAINE 5% PATCH TD SCH ×2 (09:48)
[2020-02-23] MEDS: ISOSORBIDE DINITRATE 10 MG TABLET PO SCH (09:49)
[2020-02-23] MEDS: DOCUSATE SODIUM 100 MG CAPSULE PO SCH ×2 (09:50→16:59)
[2020-02-23] MEDS: ASPIRIN 81 MG TAB.CHEW PO SCH (09:50)
[2020-02-23] MEDS: AMLODIPINE 10 MG TABLET PO SCH (09:51)
[2020-02-23] MEDS: METOPROLOL TARTRATE 50 MG TABLET PO SCH ×2 (09:51→17:00)
[2020-02-23] MEDS: LINAGLIPTIN 5 MG TABLET PO SCH (09:52)
[2020-02-23 09:59] LABS: EOSINOPHILS % (MANUAL) 1 % (0-8); LYMPHOCYTES % (MANUAL) 10 % (20-40); MONOCYTES % (MANUAL) 5 % (2-10); NEUTROPHILS % (MANUAL) 84 % (42-75)
--- NOTE | 2020-02-23 10:12 | NUR ---
hemodialysis completed patient tolerated well
[2020-02-23] MEDS: INSULIN REGULAR, HUMAN 300 UNIT/3 ML VIAL SQ PRN ×3 (11:35→20:15)
[2020-02-23 11:53] VITALS: BP 150/60
[2020-02-23 16:08] VITALS: BP 150/66
[2020-02-23] MEDS: IV 1/2NS 1000 ML 1,000 ML IV PRN (17:10)
--- NOTE | 2020-02-23 17:31 | NUR ---
continue iv antibiotic, pain management as ordered. afebrile
--- NOTE | 2020-02-23 19:30 | NUR ---
Report received. Patient sleeping, arouses easily to name. NAD noted.
--- NOTE | 2020-02-23 20:05 | NUR ---
Qaxhrmfvy=114; Insulin coverage given.
[2020-02-23 20:15] VITALS: BP 153/69
--- NOTE | 2020-02-23 20:35 | NUR ---
Report given to Nallely COVARRUBIAS. IV infusing well via MINE Midline.
--- NOTE | 2020-02-23 21:00 | NUR ---
Patient in bed asleep ,arouses easily to name with O2 inhalation @ 2LPM via NC 97%.HOB elevated.No s/s of distress noted.Midline noted on right upper arm with NS 0.45% running well 60 cc/hr.Tolerated well.Ottoniel cath on RIJ in place.Dressing clean and dry.Will continue to monitor.
[2020-02-24 05:54] VITALS: BP 149/59
[2020-02-24] MEDS: PANTOPRAZOLE SODIUM 40 MG TABLET.DR PO SCH (06:01)
[2020-02-24] MEDS: BLOOD SUGAR DIAGNOSTIC 1 EACH STRIP VI SCH ×4 (06:26→20:16)
[2020-02-24] MEDS: IV 1/2NS 1000 ML 1,000 ML IV PRN (06:51)
--- NOTE | 2020-02-24 08:00 | NUR ---
PATIENT AWAKE ALERT AND VERBALLY RESPONSIVE, NO SS OF PAIN OR DISTRESS. STARTED WITH HEMODIALYSIS AT BEDSIDE
[2020-02-24] MEDS: INSULIN REGULAR, HUMAN 300 UNIT/3 ML VIAL SQ PRN ×4 (08:06→20:20)
[2020-02-24 09:47] LABS: BASOPHILS # (AUTO) 0.1 K/uL (0.0-8.0); BASOPHILS % (AUTO) 0.5 % (0.0-2.0); EOSINOPHILS # (AUTO) 0.1 K/uL (0.0-0.7); EOSINOPHILS % (AUTO) 0.7 % (0.0-7.0); HEMATOCRIT 27.8 % (31.2-41.9); HEMOGLOBIN 9.4 g/dL (10.9-14.3); LYMPHOCYTES # (AUTO) 0.9 K/uL (20.0-40.0); LYMPHOCYTES % (AUTO) 4.7 % (20.5-51.5); MEAN CORPUSCULAR HEMOGLOBIN 30.5 uug (24.7-32.8); MEAN CORPUSCULAR HGB CONC 34 g/dL (32.3-35.6); MEAN CORPUSCULAR VOLUME 90.4 fL (75.5-95.3); MONOCYTES # (AUTO) 0.8 K/uL (2.0-10.0); MONOCYTES % (AUTO) 4.5 % (0.0-11.0); NEUTROPHILS # (AUTO) 16.3 K/uL (1.8-8.9); NEUTROPHILS % (AUTO) 89.6 % (38.5-71.5); PLATELET COUNT (AUTO) 77 K/uL (179-408); RED BLOOD CELL COUNT(AUTO) 3.08 MIL/uL (3.63-4.92); WHITE BLOOD COUNT (AUTO) 18.2 K/uL (3.8-11.8)
--- NOTE | 2020-02-24 09:51 | NUR ---
HEMODIALYSIS COMPLETED WITH 3L OF FLUID OUT. PATIENT TOLERATED WELL
[2020-02-24 10:08] LABS: CREATININE 1.3 mg/dL (0.6-1.3); MAGNESIUM 1.8 mg/dL (1.8-2.4); PHOSPHOROUS 2.4 mg/dL (2.5-4.9); POTASSIUM 3.6 mmol/L (3.5-5.1)
[2020-02-24] MEDS: MEROPENEM 500 MG in IV NORMAL SALINE 50 ML IV SCH (10:09)
[2020-02-24] MEDS: LIDOCAINE 5% PATCH TD SCH ×2 (10:10→10:11)
[2020-02-24] MEDS: DOCUSATE SODIUM 100 MG CAPSULE PO SCH ×2 (10:11→16:39)
[2020-02-24] MEDS: Z GUARD REMEDY PASTE 57 GM TUBE TOP SCH ×2 (10:11→20:16)
[2020-02-24] MEDS: ASPIRIN 81 MG TAB.CHEW PO SCH (10:11)
[2020-02-24] MEDS: LINAGLIPTIN 5 MG TABLET PO SCH (10:12)
[2020-02-24] MEDS: METOPROLOL TARTRATE 50 MG TABLET PO SCH ×2 (10:12→16:40)
[2020-02-24] MEDS: AMLODIPINE 10 MG TABLET PO SCH (10:12)
[2020-02-24] MEDS: CHOLECALCIFEROL 1,000 UNIT TABLET PO SCH (10:13)
[2020-02-24] MEDS: ISOSORBIDE DINITRATE 10 MG TABLET PO SCH (10:13)
[2020-02-24 11:35] LABS: LYMPHOCYTES % (MANUAL) 7 % (20-40); MONOCYTES % (MANUAL) 3 % (2-10); NEUTROPHILS % (MANUAL) 90 % (42-75)
[2020-02-24] MEDS ORDERED: MEROPENEM 0.5 G in IV NORMAL SALINE 50 ML IV ONE (12:00)
[2020-02-24] MEDS: MORPHINE SULFATE 2 MG/1 ML DISP.SYRIN IV PRN (15:32)
--- NOTE | 2020-02-24 16:05 | NUR ---
SEEN BY JASMIN ANDERSON REGARDING PLAN FOR PERMACATH RE: UNABLE TO PERFORM PROCEDURE TODAY DUE TO ELEVATED WBC
[2020-02-24 16:19] VITALS: BP 190/65
[2020-02-24 18:52] VITALS: BP 166/72
[2020-02-24] MEDS ORDERED: MEROPENEM 500 MG in IV NORMAL SALINE 50 ML IV SCH (20:00)
[2020-02-24] MEDS: ACETAMINOPHEN 325 MG TABLET PO PRN (20:17)
[2020-02-24 20:22] VITALS: BP 160/62
[2020-02-24] MEDS ORDERED: MEROPENEM 1 G in IV NORMAL SALINE 100 ML IV SCH (21:00)
[2020-02-24 22:05] VITALS: BP 158/65
[2020-02-25] VITALS (7 sets, daily range): BP systolic 150–173; BP diastolic 52–66
[2020-02-25] MEDS: IV 1/2NS 1000 ML 1,000 ML IV PRN (02:35)
--- NOTE | 2020-02-25 04:20 | NUR ---
report received from assistant shift supervisor nurse. will continue to monitor and assess.
[2020-02-25] MEDS: PANTOPRAZOLE SODIUM 40 MG TABLET.DR PO SCH (06:23)
[2020-02-25] MEDS: BLOOD SUGAR DIAGNOSTIC 1 EACH STRIP VI SCH ×4 (06:32→21:36)
[2020-02-25 06:49] LABS: BASOPHILS % (AUTO) 0.2 % (0.0-2.0); EOSINOPHILS # (AUTO) 0.2 K/uL (0.0-0.7); EOSINOPHILS % (AUTO) 1.5 % (0.0-7.0); HEMATOCRIT 23.5 % (31.2-41.9); LYMPHOCYTES # (AUTO) 0.9 K/uL (20.0-40.0); LYMPHOCYTES % (AUTO) 5.6 % (20.5-51.5); MEAN CORPUSCULAR HEMOGLOBIN 31.4 uug (24.7-32.8); MEAN CORPUSCULAR HGB CONC 34 g/dL (32.3-35.6); MEAN CORPUSCULAR VOLUME 92.2 fL (75.5-95.3); MONOCYTES % (AUTO) 5.8 % (0.0-11.0); NEUTROPHILS # (AUTO) 14.4 K/uL (1.8-8.9); NEUTROPHILS % (AUTO) 86.9 % (38.5-71.5); PLATELET COUNT (AUTO) 93 K/uL (179-408); RED BLOOD CELL COUNT(AUTO) 2.55 MIL/uL (3.63-4.92); WHITE BLOOD COUNT (AUTO) 16.6 K/uL (3.8-11.8)
[2020-02-25 06:57] LABS: CREATININE 2.5 mg/dL (0.6-1.3); MAGNESIUM 1.8 mg/dL (1.8-2.4); PHOSPHOROUS 3.8 mg/dL (2.5-4.9); POTASSIUM 4.1 mmol/L (3.5-5.1)
[2020-02-25 07:07] LABS: A/G RATIO 0.7 (0.7-1.7); ALBUMIN 2.5 g/dL (2.9-4.4); ALPHA-1-GLOBULIN 0.4 g/dL (0.0-0.4); ALPHA-2-GLOBULIN 0.9 g/dL (0.4-1.0); BETA GLOBULIN 1.1 g/dL (0.7-1.3); GAMMA GLOBULIN 1.2 g/dL (0.4-1.8); GLOBULIN, TOTAL 3.6 g/dL (2.2-3.9); M-SPIKE Not Observed g/dL (Not Observed)
[2020-02-25] MEDS: INSULIN REGULAR, HUMAN 300 UNIT/3 ML VIAL SQ PRN ×4 (07:48→21:38)
[2020-02-25] MEDS: MEROPENEM 500 MG in IV NORMAL SALINE 50 ML IV SCH (07:52)
--- NOTE | 2020-02-25 08:00 | NUR ---
Pt in bed asleep arousable to name and touch, AOx2, on O2 @ 2L with no SOB or distress noted at this time. Unable to move left arm and left leg. On air mattress. Noted generalized non-pitting edema. Felix catheter in place draining clear yellow urine. DVT pumps in place. Bed locked in lowest position with siderails 2x up. Call light within reach
[2020-02-25] MEDS: CHOLECALCIFEROL 1,000 UNIT TABLET PO SCH (09:00)
[2020-02-25] MEDS: LINAGLIPTIN 5 MG TABLET PO SCH (09:00)
[2020-02-25] MEDS: ISOSORBIDE DINITRATE 10 MG TABLET PO SCH (09:02)
[2020-02-25] MEDS: DOCUSATE SODIUM 100 MG CAPSULE PO SCH ×2 (09:03→17:05)
[2020-02-25] MEDS: AMLODIPINE 10 MG TABLET PO SCH (09:03)
[2020-02-25] MEDS: ASPIRIN 81 MG TAB.CHEW PO SCH (09:03)
[2020-02-25] MEDS: METOPROLOL TARTRATE 50 MG TABLET PO SCH ×2 (09:03→17:04)
[2020-02-25] MEDS: LIDOCAINE 5% PATCH TD SCH ×2 (09:04)
[2020-02-25] MEDS: Z GUARD REMEDY PASTE 57 GM TUBE TOP SCH ×2 (09:05→21:36)
[2020-02-25] MEDS: MORPHINE SULFATE 2 MG/1 ML DISP.SYRIN IV PRN ×2 (09:57→21:26)
--- NOTE | 2020-02-25 10:37 | NUR ---
Called laboratory for hepatitis results, informed that had to redraw patient since 1st specimen was not sufficient. Second specimen was resent, Vanda Qureshi NP made aware.
--- NOTE | 2020-02-25 17:55 | NUR ---
Followed-up with lab regarding hepatitis panel results, and specimen results might take couple days since specimen was resent earlier today. Addendum: 02/25/20 at 1757 by LEEANNE BENAVIDEZ RN Followed-up with lab and talked to Madison regarding hepatitis panel results, and specimen results might take couple days since specimen was resent earlier today.
--- NOTE | 2020-02-25 18:15 | NUR ---
Pt stable throughout shift, sleeping intermittently. AOx4 on O2 @ 2L with no SOB or distress at this time. Pt able to feed herself using right arm. Felix catheter in place. Pain management and aspiration precaution maintained. Call light and phone within reach. Bed locked in lowest position with siderails 2x up.
--- NOTE | 2020-02-25 19:30 | NUR ---
Received patient lying in bed awake. AAOx2. No s/s of acute distress noted. Pt on 2L O2 via NC, denies SOB. Felix in place and draining clear yellow urine. Pt is on an air mattress. Right midline patent and intact. RIJ Ottoniel cath in place, dressing is clean. Left wrist IV patent and intact. Bed locked and low. Safety measures in place and will continue to monitor.
[2020-02-25] MEDS ORDERED: hydrALAZINE HCL 20 MG/1 ML VIAL IV ONE (23:45)
--- NOTE | 2020-02-25 23:45 | NUR ---
Pt BP elevated 173/66. Notified Vanda Qureshi NP and ordered one time hydralazine 10mg IV. Will administer and will continue to monitor.
[2020-02-26 00:53] VITALS: BP 160/63
[2020-02-26 01:37] LABS: HEPATITIS Be ANTIGEN Negative (Negative)
[2020-02-26 05:14] VITALS: BP 157/54
--- NOTE | 2020-02-26 05:58 | NUR ---
Patient awake and alert. No s/s of acute distress noted. Hemodialysis started. Addendum: 02/26/20 at 0617 by RANDELL TORRES RN Held AM Protonix due to pt on hemodialysis
[2020-02-26 06:04] LABS: BASOPHILS % (AUTO) 0.4 % (0.0-2.0); EOSINOPHILS # (AUTO) 0.3 K/uL (0.0-0.7); EOSINOPHILS % (AUTO) 2.4 % (0.0-7.0); HEMATOCRIT 23.8 % (31.2-41.9); LYMPHOCYTES # (AUTO) 0.9 K/uL (20.0-40.0); LYMPHOCYTES % (AUTO) 7.2 % (20.5-51.5); MEAN CORPUSCULAR HEMOGLOBIN 30.8 uug (24.7-32.8); MEAN CORPUSCULAR HGB CONC 34 g/dL (32.3-35.6); MEAN CORPUSCULAR VOLUME 91.7 fL (75.5-95.3); MONOCYTES # (AUTO) 0.9 K/uL (2.0-10.0); MONOCYTES % (AUTO) 6.7 % (0.0-11.0); NEUTROPHILS # (AUTO) 10.7 K/uL (1.8-8.9); NEUTROPHILS % (AUTO) 83.3 % (38.5-71.5); PLATELET COUNT (AUTO) 128 K/uL (179-408); WHITE BLOOD COUNT (AUTO) 12.9 K/uL (3.8-11.8)
[2020-02-26 06:07] LABS: HEPATITIS B SURFACE AB Reactive (.)
[2020-02-26 06:20] LABS: BILIRUBIN,TOTAL 0.4 mg/dL (0.2-1.0); MAGNESIUM 1.9 mg/dL (1.8-2.4); PHOSPHOROUS 4.5 mg/dL (2.5-4.9); TOTAL PROTEIN, SERUM 6.2 g/dL (6.4-8.2)
[2020-02-26] MEDS: BLOOD SUGAR DIAGNOSTIC 1 EACH STRIP VI SCH ×4 (06:38→21:34)
[2020-02-26] MEDS: ACETAMINOPHEN 325 MG TABLET PO PRN (07:50)
--- NOTE | 2020-02-26 09:01 | NUR ---
Pt just finished with dialysis
[2020-02-26] MEDS: MEROPENEM 500 MG in IV NORMAL SALINE 50 ML IV SCH (09:02)
[2020-02-26] MEDS: PANTOPRAZOLE SODIUM 40 MG TABLET.DR PO SCH (09:02)
[2020-02-26] MEDS: INSULIN REGULAR, HUMAN 300 UNIT/3 ML VIAL SQ PRN ×4 (09:06→21:35)
[2020-02-26] MEDS: DOCUSATE SODIUM 100 MG CAPSULE PO SCH ×2 (09:08→17:21)
[2020-02-26] MEDS: METOPROLOL TARTRATE 50 MG TABLET PO SCH ×2 (09:09→17:24)
[2020-02-26] MEDS: ISOSORBIDE DINITRATE 10 MG TABLET PO SCH (09:09)
[2020-02-26] MEDS: LINAGLIPTIN 5 MG TABLET PO SCH (09:09)
[2020-02-26] MEDS: ASPIRIN 81 MG TAB.CHEW PO SCH (09:09)
[2020-02-26] MEDS: CHOLECALCIFEROL 1,000 UNIT TABLET PO SCH (09:09)
[2020-02-26] MEDS: LIDOCAINE 5% PATCH TD SCH ×2 (09:10)
[2020-02-26] MEDS: AMLODIPINE 10 MG TABLET PO SCH (09:10)
[2020-02-26] MEDS: Z GUARD REMEDY PASTE 57 GM TUBE TOP SCH ×2 (09:11→21:43)
[2020-02-26 11:40] VITALS: BP 146/59
[2020-02-26 16:00] VITALS: BP 158/61
[2020-02-26] MEDS: MIRALAX 17 GM POWD.PACK PO PRN (17:21)
--- NOTE | 2020-02-26 18:57 | NUR ---
Pt stable throughout shift, sleeping intermittently. AOx4 on O2 @ 2L with no SOB or distress at this time. Felix catheter in place. Pain management and aspiration precaution maintained. Call light and phone within reach. Bed locked in lowest position with siderails 2x up.
[2020-02-26 20:09] VITALS: BP 162/63
[2020-02-27] MEDS: MORPHINE SULFATE 2 MG/1 ML DISP.SYRIN IV PRN (01:15)
[2020-02-27 04:06] VITALS: BP 161/57
--- NOTE | 2020-02-27 04:07 | NUR ---
Ms Phillips rested well in between care; with complaints of pain and medicated with tylenol and morphine; aspiration precaution maintained; continue to monitor; continue plan of care.
[2020-02-27] MEDS: BLOOD SUGAR DIAGNOSTIC 1 EACH STRIP VI SCH ×4 (06:47→20:39)
[2020-02-27] MEDS: PANTOPRAZOLE SODIUM 40 MG TABLET.DR PO SCH (06:47)
[2020-02-27 06:53] LABS: CREATININE 2.5 mg/dL (0.6-1.3); POTASSIUM 4.3 mmol/L (3.5-5.1)
[2020-02-27 07:05] LABS: BASOPHILS % (AUTO) 0.4 % (0.0-2.0); EOSINOPHILS # (AUTO) 0.1 K/uL (0.0-0.7); EOSINOPHILS % (AUTO) 1.8 % (0.0-7.0); HEMATOCRIT 24.2 % (31.2-41.9); HEMOGLOBIN 8.2 g/dL (10.9-14.3); LYMPHOCYTES % (AUTO) 12.7 % (20.5-51.5); MEAN CORPUSCULAR HEMOGLOBIN 31.1 uug (24.7-32.8); MEAN CORPUSCULAR HGB CONC 34 g/dL (32.3-35.6); MEAN CORPUSCULAR VOLUME 91.8 fL (75.5-95.3); MONOCYTES # (AUTO) 0.6 K/uL (2.0-10.0); MONOCYTES % (AUTO) 7.9 % (0.0-11.0); NEUTROPHILS % (AUTO) 77.2 % (38.5-71.5); PLATELET COUNT (AUTO) 162 K/uL (179-408); RED BLOOD CELL COUNT(AUTO) 2.64 MIL/uL (3.63-4.92); WHITE BLOOD COUNT (AUTO) 7.8 K/uL (3.8-11.8)
[2020-02-27] MEDS: AMLODIPINE 10 MG TABLET PO SCH (08:10)
[2020-02-27] MEDS: LIDOCAINE 5% PATCH TD SCH ×2 (08:10)
[2020-02-27] MEDS: CHOLECALCIFEROL 1,000 UNIT TABLET PO SCH (08:10)
[2020-02-27] MEDS: LINAGLIPTIN 5 MG TABLET PO SCH (08:10)
[2020-02-27] MEDS: ASPIRIN 81 MG TAB.CHEW PO SCH (08:11)
[2020-02-27] MEDS: METOPROLOL TARTRATE 50 MG TABLET PO SCH ×2 (08:11→16:42)
[2020-02-27] MEDS: DOCUSATE SODIUM 100 MG CAPSULE PO SCH ×2 (08:11→16:42)
[2020-02-27] MEDS: ISOSORBIDE DINITRATE 10 MG TABLET PO SCH (08:11)
[2020-02-27] MEDS: Z GUARD REMEDY PASTE 57 GM TUBE TOP SCH ×2 (08:12→20:40)
[2020-02-27] MEDS: MEROPENEM 500 MG in IV NORMAL SALINE 50 ML IV SCH (08:15)
[2020-02-27] MEDS: INSULIN REGULAR, HUMAN 300 UNIT/3 ML VIAL SQ PRN ×4 (08:23→20:43)
[2020-02-27] MEDS: NEPRO (VANILLA) 237 ML CAN PO SCH (09:00)
[2020-02-27 12:00] VITALS: BP 167/63
[2020-02-27 16:07] VITALS: BP 161/55
--- NOTE | 2020-02-27 19:30 | NUR ---
RECEIVED PT AWAKE, ALERT AND ORIENTEDX3. PT IN NO ACUTE DISTRESS. SAFETY AND COMFORT PROVIDED. PT ON FIRST STEP MATTRESS. PT CULLEN INTACT AND DRAINING WELL. IV INTACT. SAFETY AND COMFORT PROVIDED. WILL CONTINUE TO MONITOR.
[2020-02-27 20:06] VITALS: BP 162/69
[2020-02-28] MEDS: MORPHINE SULFATE 2 MG/1 ML DISP.SYRIN IV PRN ×2 (01:45→05:47)
[2020-02-28 04:00] VITALS: BP 177/63
[2020-02-28] MEDS: METOPROLOL TARTRATE 50 MG TABLET PO SCH ×3 (06:16→17:00)
[2020-02-28] MEDS: PANTOPRAZOLE SODIUM 40 MG TABLET.DR PO SCH (06:17)
--- NOTE | 2020-02-28 06:19 | NUR ---
PT SLEPT INTERMITTENTLY. PT IN NO ACUTE DISTRESS. IV INTACT. CULLEN CATHETER INTACT AND DRAINING WELL. PT ON 2L NASAL CANNULA. PT GIVEN MORPHINE AT 0145H FOR GENERALIZED PAIN. AFTER AN HOUR PT PAIN RESOLVED. PRESCRIBED MEDICATION GIVEN AND PT TOLERATED IT WELL.GAVE LOPRESSOR PRN UNSCHEDULED FOR BP 180/65. PT ASYMPTOMATIC. BLOOD SUGAR WAS 232. GAVE INSULIN.SAFETY AND COMFORT PROVIDED. WILL ENDORSE TO INCOMING NURSE FOR CONTINUITY OF CARE.
[2020-02-28] MEDS: BLOOD SUGAR DIAGNOSTIC 1 EACH STRIP VI SCH ×5 (06:32→22:47)
[2020-02-28] MEDS: INSULIN REGULAR, HUMAN 300 UNIT/3 ML VIAL SQ PRN (06:33)
[2020-02-28 06:34] LABS: BASOPHILS % (AUTO) 0.4 % (0.0-2.0); EOSINOPHILS # (AUTO) 0.1 K/uL (0.0-0.7); EOSINOPHILS % (AUTO) 1.9 % (0.0-7.0); HEMATOCRIT 22.6 % (31.2-41.9); HEMOGLOBIN 7.7 g/dL (10.9-14.3); MEAN CORPUSCULAR HEMOGLOBIN 30.8 uug (24.7-32.8); MEAN CORPUSCULAR HGB CONC 34 g/dL (32.3-35.6); MEAN CORPUSCULAR VOLUME 89.9 fL (75.5-95.3); MONOCYTES # (AUTO) 0.5 K/uL (2.0-10.0); NEUTROPHILS # (AUTO) 5.6 K/uL (1.8-8.9); NEUTROPHILS % (AUTO) 76.7 % (38.5-71.5); PLATELET COUNT (AUTO) 180 K/uL (179-408); RED BLOOD CELL COUNT(AUTO) 2.51 MIL/uL (3.63-4.92); WHITE BLOOD COUNT (AUTO) 7.3 K/uL (3.8-11.8)
[2020-02-28 06:46] LABS: BILIRUBIN,TOTAL 0.4 mg/dL (0.2-1.0); CREATININE 2.9 mg/dL (0.6-1.3); MAGNESIUM 2.1 mg/dL (1.8-2.4); PHOSPHOROUS 4.6 mg/dL (2.5-4.9); POTASSIUM 4.4 mmol/L (3.5-5.1)
[2020-02-28 06:55] VITALS: BP 169/85
--- NOTE | 2020-02-28 07:15 | NUR ---
Received patient in bed, awake and verbally responsive. On Oxygen at 2L via nasal canula, sat 96%. No SOB. No complain of pain or discomfort at this time. Patient is NPO for PermCath Insertion. kept clean and comfortable. Will continue to monitor.
[2020-02-28] MEDS: MEROPENEM 500 MG in IV NORMAL SALINE 50 ML IV SCH (07:57)
[2020-02-28] MEDS ORDERED: hydrALAZINE HCL 20 MG/1 ML VIAL IV PRN (09:00)
[2020-02-28] MEDS: LINAGLIPTIN 5 MG TABLET PO SCH (09:00)
[2020-02-28] MEDS: NEPRO (VANILLA) 237 ML CAN PO SCH (09:00)
[2020-02-28] MEDS: ASPIRIN 81 MG TAB.CHEW PO SCH (09:00)
[2020-02-28] MEDS: LIDOCAINE 5% PATCH TD SCH ×2 (09:26→09:27)
[2020-02-28] MEDS: Z GUARD REMEDY PASTE 57 GM TUBE TOP SCH ×2 (09:27→20:31)
[2020-02-28] MEDS: CHOLECALCIFEROL 1,000 UNIT TABLET PO SCH (09:37)
[2020-02-28] MEDS: AMLODIPINE 10 MG TABLET PO SCH (09:38)
[2020-02-28] MEDS: DOCUSATE SODIUM 100 MG CAPSULE PO SCH ×2 (09:38→17:00)
[2020-02-28] MEDS: ISOSORBIDE DINITRATE 10 MG TABLET PO SCH (09:55)
[2020-02-28 12:00] VITALS: BP 144/53
[2020-02-28] MEDS ORDERED: LIDOCAINE 1%-EPI 1:100,000 20 ML VIAL ONE (15:46)
[2020-02-28] MEDS ORDERED: LIDOCAINE HCL 1% 20 ML VIAL ONE (15:47)
[2020-02-28] MEDS ORDERED: HEPARIN SODIUM,PORCINE 1,000 UNITS/ML VIAL ONE ×2 (15:47→16:06)
[2020-02-28] MEDS ORDERED: HEPARIN/NS 500 ML ONE (15:47)
[2020-02-28] MEDS ORDERED: BUPIVACAINE 0.25% 30 ML VIAL ONE (15:48)
[2020-02-28] MEDS ORDERED: BUPIVACAINE/EPI PF 0.25% 30 ML VIAL ONE (15:49)
[2020-02-28] MEDS ORDERED: IOHEXOL 300MG/ML 50 ML VIAL ONE (15:50)
--- NOTE | 2020-02-28 16:00 | NUR ---
Received a call from Surgery that PermCath insertion will be moved at 1730 today
[2020-02-28 16:01] VITALS: BP 165/79
--- NOTE | 2020-02-28 17:10 | NUR ---
Received a call from Surgery that PermCath Insertion will be late, No scheduled time yet, but will call Charge nurse 1 hour before the surgery, patient will remains NPO.
--- NOTE | 2020-02-28 18:18 | NUR ---
Patient in bed, awake. On Oxygen at 2L via Nasal canula, sat 96%. No SOB. No complain of Pain or discomfort. Awaiting for PermCath Insertion, patient remains NPO. Recent BS was 180. All needs attended and met. Dialysis was done with output of 2000ml. Will endorse to Oncoming Nurse.
--- NOTE | 2020-02-28 20:05 | NUR ---
spoke with MARCI White in surgery regarding blood pressure of 173/57. RN will hold hydralazine order for SBP >160
[2020-02-28 20:06] VITALS: BP 173/57
--- NOTE | 2020-02-28 20:17 | NUR ---
patient picked up from surgery by MARCI White.
[2020-02-28] MEDS ORDERED: CEFAZOLIN 1 G VIAL MC ONE (20:30)
[2020-02-28] MEDS ORDERED: SEVOFLURANE 250 ML BOTTLE IH ONE (20:30)
--- NOTE | 2020-02-28 22:42 | NUR ---
MARCI jeffrey from surgery brought patient up. resume diet from preop. RN on medsurg floor to administer BP med. dr. Ibarra and SHOW JUMPING INSTRUCTOR did not want to administer and BP meds.
--- NOTE | 2020-02-28 22:43 | NUR ---
patient in stable condition.
--- NOTE | 2020-02-28 23:17 | NUR ---
v/s stable. no s/s of acute distress. BS taken. no coverage due to NPO status until post op. hydralazine administered. will continue to monitor.
[2020-02-28 23:19] VITALS: BP 179/71
[2020-02-29 04:09] VITALS: BP 151/66
--- NOTE | 2020-02-29 05:18 | NUR ---
patient slept intermittently. aaox3. snacks provided throughout the night per request from patient. v/s stable. off o2 for a few hours now on RA at 100%. no s/s of acute distress. no signs of bleeding on permacatheter site. MINE midline intact and patent. lopez patent and intact flowing via gravity with clear yellow urine. fall precautions in place and call light within reach. will continue to monitor and assess until endorsement to morning nurse.
[2020-02-29] MEDS: PANTOPRAZOLE SODIUM 40 MG TABLET.DR PO SCH (06:09)
[2020-02-29] MEDS: BLOOD SUGAR DIAGNOSTIC 1 EACH STRIP VI SCH ×3 (06:45→16:46)
--- NOTE | 2020-02-29 07:30 | NUR ---
patient in bed, awake, alert and verbally responsive. No signs of distress noted. No SOB. No complain of Pain or discomfort. Right chest PermCath intact. kept clean and comfortable. Current BS 306, will give 8 units per sliding scale. kept clean and comfortable. Will continue to monitor.
[2020-02-29 07:33] LABS: BASOPHILS % (AUTO) 0.3 % (0.0-2.0); EOSINOPHILS # (AUTO) 0.1 K/uL (0.0-0.7); EOSINOPHILS % (AUTO) 1.3 % (0.0-7.0); HEMATOCRIT 23.6 % (31.2-41.9); LYMPHOCYTES # (AUTO) 0.7 K/uL (20.0-40.0); LYMPHOCYTES % (AUTO) 8.1 % (20.5-51.5); MEAN CORPUSCULAR HEMOGLOBIN 31.1 uug (24.7-32.8); MEAN CORPUSCULAR HGB CONC 34 g/dL (32.3-35.6); MEAN CORPUSCULAR VOLUME 91.9 fL (75.5-95.3); MONOCYTES # (AUTO) 0.5 K/uL (2.0-10.0); MONOCYTES % (AUTO) 5.7 % (0.0-11.0); NEUTROPHILS # (AUTO) 7.7 K/uL (1.8-8.9); NEUTROPHILS % (AUTO) 84.6 % (38.5-71.5); PLATELET COUNT (AUTO) 178 K/uL (179-408); RED BLOOD CELL COUNT(AUTO) 2.57 MIL/uL (3.63-4.92); WHITE BLOOD COUNT (AUTO) 9.1 K/uL (3.8-11.8)
[2020-02-29 07:43] LABS: CREATININE 2.6 mg/dL (0.6-1.3); MAGNESIUM 2.2 mg/dL (1.8-2.4); PHOSPHOROUS 4.7 mg/dL (2.5-4.9); POTASSIUM 4.4 mmol/L (3.5-5.1)
[2020-02-29] MEDS: INSULIN REGULAR, HUMAN 300 UNIT/3 ML VIAL SQ PRN ×3 (07:50→16:48)
[2020-02-29] MEDS: MEROPENEM 500 MG in IV NORMAL SALINE 50 ML IV SCH (08:00)
[2020-02-29] MEDS: LINAGLIPTIN 5 MG TABLET PO SCH (08:15)
[2020-02-29] MEDS: ASPIRIN 81 MG TAB.CHEW PO SCH (08:15)
[2020-02-29] MEDS: ISOSORBIDE DINITRATE 10 MG TABLET PO SCH (08:15)
[2020-02-29] MEDS: DOCUSATE SODIUM 100 MG CAPSULE PO SCH ×2 (08:15→17:03)
[2020-02-29] MEDS: METOPROLOL TARTRATE 50 MG TABLET PO SCH ×2 (08:16→17:03)
[2020-02-29] MEDS: AMLODIPINE 10 MG TABLET PO SCH (08:16)
[2020-02-29] MEDS: CHOLECALCIFEROL 1,000 UNIT TABLET PO SCH (08:16)
[2020-02-29] MEDS: LIDOCAINE 5% PATCH TD SCH ×2 (08:19)
[2020-02-29] MEDS: Z GUARD REMEDY PASTE 57 GM TUBE TOP SCH (08:20)
[2020-02-29] MEDS: NEPRO (VANILLA) 237 ML CAN PO SCH (08:20)
[2020-02-29] MEDS: MIRALAX 17 GM POWD.PACK PO PRN (10:09)
[2020-02-29] MEDS ORDERED: MERO500V21 IV (10:40)
[2020-02-29 12:00] VITALS: BP 153/60
[2020-02-29] MEDS: MORPHINE SULFATE 2 MG/1 ML DISP.SYRIN IV PRN ×2 (12:51→20:24)
--- NOTE | 2020-02-29 15:47 | NUR ---
Called [facility] and Spoke with Sarah COVARRUBIAS, endorsed Accordingly. supervisor benzene refining time 1730.
[2020-02-29 16:00] VITALS: BP 153/89
--- NOTE | 2020-02-29 17:00 | NUR ---
Patient was dialyzed with 2000ml output.
[2020-02-29 17:03] VITALS: BP 153/69
--- NOTE | 2020-02-29 18:04 | NUR ---
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
--- NOTE | 2020-02-29 20:33 | NUR ---
[facility].Transported to [facility].Gave report to one of the crew.Patient alert x3,mongolian speaking .Denies SOB .No s/s of distress noted.C/o pain on rt chest .Medicated with PRN medication.Rt upper arm with midline patent and intact.Perma cath on rt chest in place.Dressing clean and dry.All belonging given.
== END 2020-02-29 20:31 | DRG 871 ==
LOC: ER 12:41 → TELE3 17:34 → MEDSURG3 02-20 11:12
PROVIDERS: ADMIT Internal Medicine; ATTEND Nurse Practitioner Acute Care
PROC: 02HV33Z Insertion of Infusion Device into Superior Vena Cava, Percutaneous Approach (ICD-10-PCS; principal; 2020-02-22)
PROC: 5A1D70Z Performance of Urinary Filtration, Intermittent, Less than 6 Hours Per Day (ICD-10-PCS; 2020-02-22)
PROC: B548ZZA Ultrasonography of Superior Vena Cava, Guidance (ICD-10-PCS; 2020-02-22)
PROC: 05HY33Z Insertion of Infusion Device into Upper Vein, Percutaneous Approach (ICD-10-PCS; 2020-02-22)
PROC: 0JH63XZ Insertion of Tunneled Vascular Access Device into Chest Subcutaneous Tissue and Fascia, Percutaneous Approach (ICD-10-PCS; 2020-02-28)
PROC: B548ZZA Ultrasonography of Superior Vena Cava, Guidance (ICD-10-PCS; 2020-02-28)
PROC: 02HV33Z Insertion of Infusion Device into Superior Vena Cava, Percutaneous Approach (ICD-10-PCS; 2020-02-28)
DX: A41.9 Sepsis, unspecified organism (principal); N17.0 Acute kidney failure with tubular necrosis; G92 Toxic encephalopathy; I50.31 Acute diastolic (congestive) heart failure; Z16.12 Extended spectrum beta lactamase (ESBL) resistance; D68.69 Other thrombophilia; I69.354 Hemiplegia and hemiparesis following cerebral infarction affecting left non-dominant side; N10 Acute pyelonephritis; I13.0 Hypertensive heart and chronic kidney disease with heart failure and stage 1 through stage 4 chronic kidney disease, or unspecified chronic kidney disease; B96.20 Unspecified Escherichia coli [E. coli] as the cause of diseases classified elsewhere; Z66 Do not resuscitate; B35.1 Tinea unguium; E78.5 Hyperlipidemia, unspecified; N18.9 Chronic kidney disease, unspecified; M81.0 Age-related osteoporosis without current pathological fracture; Z79.82 Long term (current) use of aspirin; Z79.4 Long term (current) use of insulin; Z90.49 Acquired absence of other specified parts of digestive tract; Z91.81 History of falling; G47.00 Insomnia, unspecified; F01.50 Vascular dementia, unspecified severity, without behavioral disturbance, psychotic disturbance, mood disturbance, and anxiety; F41.9 Anxiety disorder, unspecified; F32.9 Major depressive disorder, single episode, unspecified; E11.42 Type 2 diabetes mellitus with diabetic polyneuropathy; E11.22 Type 2 diabetes mellitus with diabetic chronic kidney disease; E11.65 Type 2 diabetes mellitus with hyperglycemia; K59.09 Other constipation; M19.90 Unspecified osteoarthritis, unspecified site; Z74.01 Bed confinement status; E66.01 Morbid (severe) obesity due to excess calories; Z68.33 Body mass index [BMI] 33.0-33.9, adult
CPT/HCPCS: 36415; 51702; 70030-TC; 71045; 83605; 83690; 83735; 83970; 84100; 84155; 84156; 84165; 84300; 84443; 85025; 85610; 85730; 86704; 86706; 87040; 87077; 87086; 87350; 90937; 93005; 93307; A4649; A4663; C1750; G0378; J0360; J0690; J1644; J1815; J1940; J2185; J2270; J2405; J2543; J3370; J3475; J3490; J7060; Q9967; U0003-CS

== ENCOUNTER 2021-02-21 14:37 | Inpatient (IN) | payer MEDICARE, OTHER ==
[~2021-02-21] VITALS: Ht 152.4 cm; Wt 84.8 kg
[~2021-02-21 14:37] MED LIST changes: +AMLO10TA59 PO; -ATEN25TA PO; -ATOR10TA PO; -BISA10SU95 RC; -BLOO-140 IN; +CHOL10002 PO; -CHOL100062 PO; +DOCU100C36 PO; -DOCU100T2 PO; -FELO10TA44 PO; -HYDR-3972 PO; +HYDR-4075 PO; +HYDR-4384 PO; +INSU100I26 SQ; -INSU100V10 SQ; +INSU100V42 SQ; +ISOS30TA9 PO; +LIDOCAINE PATCH 5% TOP; +LINA5TAB PO; -LORA10TA7 PO; -LOSA50TA39 PO; +METO50TA16 PO; -MULT-213 PO; +NITROGLYCERIN OINT TD; -PANT40TA2 PO; +POLY17PO4 PO; -PREG25CA PO; -PROT946L PO
--- NOTE | 2021-02-21 14:37 | NUR ---
BIB private ambulance from a SNF. Per EMT patient refused her dialysis today and was referred to ER by her pmd . Pt arrives A/O x 3, pt c/o pain to her left arm. Pt states she injured her left arm at her SNF on Tuesday while she was being transfered to her bed and she did not want to do dialysis today because of the pain she has to her arm.
[2021-02-21] MEDS ORDERED: ONDANSETRON 4 MG/2 ML VIAL IV ONE (15:15)
[2021-02-21] MEDS ORDERED: MORPHINE SULFATE 2 MG/1 ML DISP.SYRIN IV ONE (15:15)
[2021-02-21 15:27] LABS: HEMATOCRIT 33.7 % (31.2-41.9); MEAN CORPUSCULAR HEMOGLOBIN 35.3 uug (24.7-32.8); MEAN CORPUSCULAR VOLUME 103.5 fL (75.5-95.3); PLATELET COUNT (AUTO) 288 K/uL (179-408)
[2021-02-21] MEDS ORDERED: MORPHINE SULFATE 4 MG/1 ML DISP.SYRIN ONE (15:27)
[2021-02-21] MEDS ORDERED: ONDANSETRON 4 MG/2 ML VIAL ONE (15:27)
[2021-02-21 15:38] LABS: ALANINE AMINOTRANSFERASE 13 U/L (14-59); ALKALINE PHOSPHATASE 113 U/L (50-136); ASPARTATE AMINOTRANSFERASE 11 U/L (15-37); BILIRUBIN,DIRECT 0.1 mg/dL (0.0-0.2); BILIRUBIN,TOTAL 0.4 mg/dL (0.2-1.0); CARBON DIOXIDE 25 mmol/L (21-32); CHLORIDE 103 mmol/L (98-107); CREATININE 2.7 mg/dL (0.6-1.3); GLUCOSE 216 mg/dL (74-106); POTASSIUM 5.2 mmol/L (3.5-5.1); TOTAL PROTEIN, SERUM 7.7 g/dL (6.4-8.2); UREA NITROGEN, BLOOD 72 mg/dL (7-18)
[2021-02-21] MEDS ORDERED: ESCI5TAB PO (15:46)
[2021-02-21] MEDS ORDERED: FOLI0.8T43 PO (15:46)
[2021-02-21] MEDS ORDERED: ONDA4TAB5 PO (15:46)
[2021-02-21] MEDS ORDERED: INSU100V42 SQ (15:46)
[2021-02-21] MEDS ORDERED: GLUC1KIT IJ (15:46)
--- NOTE | 2021-02-21 16:35 | NUR ---
PATIENT ARRIVED FROM ER. REPORT GIVEN BY MARCI PEACOCK. BODY CHECK DONE. DENIES DISCOMFORT AT THIS TIME. ORIENTED PATIENT TO HER ROOM. ALL NEEDS ATTENDED. DUE MEDS GIVEN. SHE IS ALERT/ORIENTED. WILL ENDORSE TO THE NEXT SHIFT TO CONTINUE ADMISSION REPORT.
--- NOTE | 2021-02-21 16:50 | NUR ---
SBAR report given to September on tele floor via telephone. Pt resting in [place] and watching television with NAD noted.
[2021-02-21] MEDS ORDERED: ACETAMINOPHEN 325 MG TABLET-SA PATIENTS-PAIN ONLY PO PRN (18:00)
[2021-02-21] MEDS ORDERED: ONDANSETRON HCL 4 MG TABLET PO PRN (18:00)
--- NOTE | 2021-02-21 18:10 | NUR ---
Pt trans to tele floor room 303, NAD noted.
[2021-02-21] MEDS ORDERED: SODIUM POLYSTYRENE SULFONATE 15 G/60 ML LIQUID UDC PO ONE (18:15)
[2021-02-21] MEDS ORDERED: MAGNESIUM HYDROXIDE 30 ML LIQUID UDC PO PRN (18:15)
[2021-02-21] MEDS ORDERED: ONDANSETRON 4 MG/2 ML VIAL IV PRN (18:15)
[2021-02-21] MEDS ORDERED: Z GUARD REMEDY PASTE 57 GM TUBE TOP PRN (18:15)
[2021-02-21] MEDS ORDERED: ZOLPIDEM 5 MG TABLET PO PRN (18:15)
[2021-02-21] MEDS ORDERED: DEXTROSE 50% 50 ML DISP.SYRIN IV PRN (18:15)
[2021-02-21 18:33] VITALS: BP 193/71
[2021-02-21] MEDS: hydrALAZINE HCL 10 MG TABLET PO SCH ×2 (18:55→23:45)
[2021-02-21] MEDS: FOLIC ACID/VITAMIN B COMP W-C TABLET PO SCH (18:55)
[2021-02-21] MEDS: ACETAMINOPHEN 325 MG TABLET PO PRN (19:49)
[2021-02-21 20:00] VITALS: BP 149/61
[2021-02-21] MEDS ORDERED: Medication Not On Formulary EA (Escitalopram Oxalate (Lexapro) 5 MG) PO SCH (21:00)
[2021-02-21] MEDS: INSULIN REGULAR, HUMAN 300 UNITS/3 ML VIAL SQ PRN (21:50)
[2021-02-21] MEDS: HYDROCODONE/APAP 5-325MG TABLET PO SCH (21:52)
[2021-02-21] MEDS: BLOOD SUGAR DIAGNOSTIC 1 EACH STRIP VI SCH (21:52)
[2021-02-22 00:17] VITALS: BP 151/68
--- NOTE | 2021-02-22 03:17 | NUR ---
PT COMPLAINED FROM PAIN AND ASKING FOR NORCO, WHICH IS GIVEN SCHEDULED AT 21:00PM. CONTACTED WITH DR AND GOT MORPHINE 4MG IV Q 4 HRS PRN. ALL NEEDS ARE ATTENDED AND MET. PT READY FOR HEMODIALYSIS.
[2021-02-22] MEDS: MORPHINE SULFATE 2 MG/1 ML DISP.SYRIN IV PRN ×2 (04:13→16:34)
[2021-02-22 04:18] VITALS: BP 144/79
[2021-02-22] MEDS: BLOOD SUGAR DIAGNOSTIC 1 EACH STRIP VI SCH ×4 (06:03→20:42)
[2021-02-22] MEDS: hydrALAZINE HCL 10 MG TABLET PO SCH ×3 (06:03→17:07)
[2021-02-22 06:57] LABS: HEMATOCRIT 33.6 % (31.2-41.9); MEAN CORPUSCULAR HEMOGLOBIN 35.4 uug (24.7-32.8); PLATELET COUNT (AUTO) 258 K/uL (179-408)
--- NOTE | 2021-02-22 07:00 | NUR ---
HEMODIALYSIS CONSENT SIGN BY PT AND STARTED HD.
--- NOTE | 2021-02-22 07:14 | NUR ---
REPORT GIVEN TO MORNING SHIFT RN EDUARDO
[2021-02-22 07:28] LABS: CARBON DIOXIDE 23 mmol/L (21-32); CHLORIDE 103 mmol/L (98-107); CREATININE 2.8 mg/dL (0.6-1.3); GLUCOSE 199 mg/dL (74-106); MAGNESIUM 2.1 mg/dL (1.8-2.4); PHOSPHOROUS 5.4 mg/dL (2.5-4.9); POTASSIUM 4.8 mmol/L (3.5-5.1); UREA NITROGEN, BLOOD 76 mg/dL (7-18)
[2021-02-22] MEDS ORDERED: Medication Not On Formulary EA (Isosorbide Dinitrate 30 MG) PO SCH (09:00)
[2021-02-22] MEDS: MIRALAX 17 GM POWD.PACK PO SCH (10:16)
[2021-02-22] MEDS: ASPIRIN 81 MG TAB.CHEW PO SCH (10:17)
[2021-02-22] MEDS: DOCUSATE SODIUM 100 MG CAPSULE PO SCH ×2 (10:17→16:35)
[2021-02-22] MEDS: ACETAMINOPHEN 325 MG TABLET PO PRN (10:23)
[2021-02-22] MEDS: AMLODIPINE 10 MG TABLET PO SCH (10:24)
[2021-02-22] MEDS: METOPROLOL TARTRATE 50 MG TABLET PO SCH ×2 (10:25→16:37)
[2021-02-22] MEDS: ISOSORBIDE DINITRATE 10 MG TABLET PO SCH (10:30)
--- NOTE | 2021-02-22 10:30 | NUR ---
Received patient with dialysis ongoing, patient is stable and no s/s of distress. After dialysis output is 2L BP: 168/89 . Patient is alert and oriented x 2 with periods of forgetfulness, patient in room air saturating at 95%. Patient is yelling out whenever she needs something. Instructed the patient how to use the call light and placed it within her reach. Right chest permacath is intact. Kept skin clean and dry.
[2021-02-22 10:55] VITALS: BP 160/89
[2021-02-22] MEDS: INSULIN REGULAR, HUMAN 300 UNIT/3 ML VIAL SQ PRN ×2 (11:56→17:04)
[2021-02-22 15:27] VITALS: BP 141/64
[2021-02-22] MEDS: FOLIC ACID/VITAMIN B COMP W-C TABLET PO SCH (17:06)
[2021-02-22] MEDS: ESCITALOPRAM OXALATE 10 MG TABLET PO SCH (17:06)
--- NOTE | 2021-02-22 19:30 | NUR ---
Received patient lying on bed. Established rapport. AAOx4. No acute distress noted. All due medications given as ordered. Accucheck done. Blood sugar result of 147. Insulin given as per sliding scale. Safety and comfort measures maintained. Call light within reach. Will continue to monitor.
[2021-02-22 20:00] VITALS: BP 118/67
[2021-02-22] MEDS: HYDROCODONE/APAP 5-325MG TABLET PO SCH (20:38)
[2021-02-22] MEDS: INSULIN GLARGINE,HUM 300 UNITS/3 ML CARTRIDGE SQ SCH (20:41)
[2021-02-22] MEDS: INSULIN REGULAR, HUMAN 300 UNITS/3 ML VIAL SQ PRN (20:45)
[2021-02-22] MEDS ORDERED: CALCIUM CARBONATE 500 MG TAB.CHEW PO PRN (23:00)
--- NOTE | 2021-02-22 23:46 | NUR ---
c/o acid reflux; referred to Dr Qureshi; new orders made and carried out.
[2021-02-23] VITALS: BP 137/63
[2021-02-23] MEDS: hydrALAZINE HCL 10 MG TABLET PO SCH ×4 (00:01→17:20)
[2021-02-23 04:00] VITALS: BP 172/70
[2021-02-23] MEDS: METOPROLOL TARTRATE 50 MG TABLET PO SCH ×2 (04:29→17:20)
[2021-02-23 05:45] VITALS: BP 157/37
[2021-02-23 06:19] LABS: HEMATOCRIT 33.9 % (31.2-41.9); MEAN CORPUSCULAR VOLUME 103.5 fL (75.5-95.3); PLATELET COUNT (AUTO) 246 K/uL (179-408)
[2021-02-23 06:46] LABS: CARBON DIOXIDE 29 mmol/L (21-32); CHLORIDE 98 mmol/L (98-107); CREATININE 2.8 mg/dL (0.6-1.3); GLUCOSE 123 mg/dL (74-106); POTASSIUM 4.1 mmol/L (3.5-5.1); UREA NITROGEN, BLOOD 51 mg/dL (7-18)
[2021-02-23] MEDS: PANTOPRAZOLE SODIUM 40 MG TABLET.DR PO SCH (06:49)
[2021-02-23] MEDS: BLOOD SUGAR DIAGNOSTIC 1 EACH STRIP VI SCH ×4 (06:59→20:50)
--- NOTE | 2021-02-23 07:22 | NUR ---
incontinence care done; elevated left arm due to swelling; continue to monitor.
[2021-02-23] MEDS: ASPIRIN 81 MG TAB.CHEW PO SCH (08:10)
[2021-02-23] MEDS: ISOSORBIDE DINITRATE 10 MG TABLET PO SCH (08:10)
[2021-02-23] MEDS: DOCUSATE SODIUM 100 MG CAPSULE PO SCH ×2 (08:10→17:20)
[2021-02-23] MEDS: AMLODIPINE 10 MG TABLET PO SCH (08:11)
[2021-02-23] MEDS: MIRALAX 17 GM POWD.PACK PO SCH (08:13)
[2021-02-23 12:00] VITALS: BP 137/59
[2021-02-23] MEDS: INSULIN REGULAR, HUMAN 300 UNIT/3 ML VIAL SQ PRN (12:13)
--- NOTE | 2021-02-23 15:48 | NUR ---
Patient for discharge tomorrow for available room in SNF, as per rehabilitation caseworker, MD Mcadams notified. MD Romero with discharge order in place once cleared with pattern duplicator. Patient dialysis ongoing. will continue monitor
[2021-02-23] MEDS: ACETAMINOPHEN 325 MG TABLET PO PRN (15:56)
[2021-02-23 16:00] VITALS: BP 149/74
[2021-02-23] MEDS: FOLIC ACID/VITAMIN B COMP W-C TABLET PO SCH (17:20)
[2021-02-23] MEDS: ESCITALOPRAM OXALATE 10 MG TABLET PO SCH (17:20)
[2021-02-23 20:00] VITALS: BP 138/60
[2021-02-23] MEDS: HYDROCODONE/APAP 5-325MG TABLET PO SCH (20:10)
[2021-02-23] MEDS: INSULIN GLARGINE,HUM 300 UNITS/3 ML CARTRIDGE SQ SCH (20:53)
[2021-02-23] MEDS: INSULIN REGULAR, HUMAN 300 UNITS/3 ML VIAL SQ PRN (20:54)
[2021-02-24] MEDS: MORPHINE SULFATE 2 MG/1 ML DISP.SYRIN IV PRN (00:38)
[2021-02-24 04:00] VITALS: BP 114/46
[2021-02-24] MEDS: hydrALAZINE HCL 10 MG TABLET PO SCH ×2 (05:31)
[2021-02-24] MEDS: PANTOPRAZOLE SODIUM 40 MG TABLET.DR PO SCH (05:54)
[2021-02-24] MEDS: BLOOD SUGAR DIAGNOSTIC 1 EACH STRIP VI SCH (06:54)
[2021-02-24] MEDS: ACETAMINOPHEN 325 MG TABLET PO PRN (06:54)
[2021-02-24] MEDS: INSULIN REGULAR, HUMAN 300 UNIT/3 ML VIAL SQ PRN (08:23)
[2021-02-24] MEDS: DOCUSATE SODIUM 100 MG CAPSULE PO SCH (08:24)
[2021-02-24] MEDS: ISOSORBIDE DINITRATE 10 MG TABLET PO SCH (08:25)
[2021-02-24 08:26] VITALS: BP 120/50
[2021-02-24] MEDS: AMLODIPINE 10 MG TABLET PO SCH (08:26)
[2021-02-24] MEDS: MIRALAX 17 GM POWD.PACK PO SCH (08:26)
[2021-02-24] MEDS: METOPROLOL TARTRATE 50 MG TABLET PO SCH (08:29)
[2021-02-24] MEDS: ASPIRIN 81 MG TAB.CHEW PO SCH (08:41)
--- NOTE | 2021-02-24 10:37 | NUR ---
REPORT GIVEN TO [facility].
--- NOTE | 2021-02-24 10:42 | NUR ---
DISCHARGED HOME STABLE VIA AMBULANCE.
[2021-02-24 12:07] LABS: HEPATITIS B SURFACE AG Negative (Negative)
== END 2021-02-24 10:45 | DRG 291 ==
LOC: ER 14:46 → TELE3 18:00 → MEDSURG3 02-23 15:21
PROVIDERS: ADMIT Internal Medicine; ATTEND Internal Medicine
PROC: 5A1D70Z Performance of Urinary Filtration, Intermittent, Less than 6 Hours Per Day (ICD-10-PCS; principal; 2021-02-22)
DX: I13.2 Hypertensive heart and chronic kidney disease with heart failure and with stage 5 chronic kidney disease, or end stage renal disease (principal); I50.43 Acute on chronic combined systolic (congestive) and diastolic (congestive) heart failure; N18.6 End stage renal disease; E87.5 Hyperkalemia; E11.22 Type 2 diabetes mellitus with diabetic chronic kidney disease; Z99.2 Dependence on renal dialysis; Z91.15 Patient's noncompliance with renal dialysis; E78.5 Hyperlipidemia, unspecified; F32.9 Major depressive disorder, single episode, unspecified; F41.9 Anxiety disorder, unspecified; Z86.73 Personal history of transient ischemic attack (TIA), and cerebral infarction without residual deficits; I25.10 Atherosclerotic heart disease of native coronary artery without angina pectoris; Z79.4 Long term (current) use of insulin; K21.9 Gastro-esophageal reflux disease without esophagitis; F29 Unspecified psychosis not due to a substance or known physiological condition; Z79.82 Long term (current) use of aspirin; M79.602 Pain in left arm; Z20.822 Contact with and (suspected) exposure to COVID-19; F01.50 Vascular dementia, unspecified severity, without behavioral disturbance, psychotic disturbance, mood disturbance, and anxiety; E66.9 Obesity, unspecified; Z68.36 Body mass index [BMI] 36.0-36.9, adult
CPT/HCPCS: 36415; 70030-TC; 71045; 73030; 73080; 83735; 84100; 85025; 85730; 86706; 87340; 93005; A4663; G0378; J1815; J2270; J2405; J7030

== ENCOUNTER 2022-04-12 13:00 | Emergency (ER) | payer MEDICARE, OTHER ==
[~2022-04-12] VITALS: Ht 157.5 cm; Wt 91.6 kg
[~2022-04-12 13:00] MED LIST changes: -CHOL10002 PO; +ESCI5TAB PO; +FOLI0.8T43 PO; +GLUC1KIT IJ; -MERO500V21 IV; +ONDA4TAB5 PO
[2022-04-12] MEDS ORDERED: GABA-532 PO (13:25)
[2022-04-12] MEDS ORDERED: SEVE800T8 PO (13:25)
[2022-04-12] MEDS ORDERED: SENN-18 PO (13:25)
[2022-04-12 13:40] LABS: HEMATOCRIT 33.2 % (31.2-41.9); MEAN CORPUSCULAR HEMOGLOBIN 33.7 uug (24.7-32.8); MEAN CORPUSCULAR VOLUME 101.4 fL (75.5-95.3); PLATELET COUNT (AUTO) 210 K/uL (179-408)
[2022-04-12 13:41] LABS: MAGNESIUM 2.2 mg/dL (1.8-2.4); PHOSPHOROUS 3.9 mg/dL (2.5-4.9)
[2022-04-12 13:48] LABS: ALANINE AMINOTRANSFERASE 18 U/L (14-59); ALKALINE PHOSPHATASE 123 U/L (50-136); ASPARTATE AMINOTRANSFERASE 14 U/L (15-37); BILIRUBIN,DIRECT 0.1 mg/dL (0.0-0.2); BILIRUBIN,TOTAL 0.3 mg/dL (0.2-1.0); CARBON DIOXIDE 25 mmol/L (21-32); CHLORIDE 102 mmol/L (98-107); CREATININE 3.9 mg/dL (0.6-1.3); GLUCOSE 116 mg/dL (74-106); POTASSIUM 5.2 mmol/L (3.5-5.1); TOTAL PROTEIN, SERUM 7.4 g/dL (6.4-8.2); UREA NITROGEN, BLOOD 52 mg/dL (7-18)
[2022-04-12 14:13] LABS: ACETAMINOPHEN < 2.0 ug/mL (10-30)
[2022-04-12 14:14] LABS: ETHANOL < 3 MG/DL (0-0)
--- NOTE | 2022-04-12 14:55 | NUR ---
ER medically cleared pt for Psych eval.
--- NOTE | 2022-04-12 15:10 | NUR ---
Rosa Rosa LCSW spoke and psych evaluated the pt.
--- NOTE | 2022-04-12 15:21 | NUR ---
Placed a call to [facility] profesiCHRISTINA garrido , ETA 1600.
--- NOTE | 2022-04-12 16:00 | NUR ---
PT IN NAD; VSS. AWAITING AMBULANCE FOR TRANSFER BACK TO SENDING FACILITY
--- NOTE | 2022-04-12 17:40 | NUR ---
pt discharged via bls amb back to [facility]. Pt in nad; VSS. Pt verbalizes understanding of discharge instructions. SBAR given to EMT's and they assumed care and transport of pt.
[2022-04-12 18:08] VITALS: BP 120/52
== END 2022-04-12 17:40 ==
LOC: ER 13:00
DX: R45.4 Irritability and anger (principal); E11.22 Type 2 diabetes mellitus with diabetic chronic kidney disease; N18.6 End stage renal disease; Z99.2 Dependence on renal dialysis; Z79.4 Long term (current) use of insulin; E66.9 Obesity, unspecified; Z68.36 Body mass index [BMI] 36.0-36.9, adult; I69.354 Hemiplegia and hemiparesis following cerebral infarction affecting left non-dominant side; K21.9 Gastro-esophageal reflux disease without esophagitis; F32.9 Major depressive disorder, single episode, unspecified; F41.9 Anxiety disorder, unspecified; R32 Unspecified urinary incontinence; Z88.1 Allergy status to other antibiotic agents; Z91.013 Allergy to seafood; Z79.899 Other long term (current) drug therapy; E78.5 Hyperlipidemia, unspecified; I44.0 Atrioventricular block, first degree
CPT/HCPCS: 36415; 83735; 84100; 85025; 93005; A4663; G0480

== ENCOUNTER 2022-10-22 00:51 | Inpatient (IN) | payer MEDICARE, OTHER ==
[~2022-10-22] VITALS: Ht 157.5 cm; Wt 94.8 kg
[~2022-10-22 00:51] MED LIST changes: +GABA-532 PO; -INSU100V42 SQ; -LIDOCAINE PATCH 5% TOP; -NITROGLYCERIN OINT TD; -ONDA4TAB5 PO; -POLY17PO4 PO; +SENN-18 PO; +SEVE800T8 PO
[2022-10-22] MEDS ORDERED: ASPIRIN 81 MG TAB.CHEW PO ONE (01:30)
[2022-10-22] MEDS ORDERED: LINA5TAB PO ×2 (01:33→12:35)
[2022-10-22] MEDS ORDERED: ONDA4TAB5 PO (01:33)
[2022-10-22] MEDS ORDERED: PANT40TA49 PO (01:33)
--- NOTE | 2022-10-22 01:41 | NUR ---
Lab at bedside.
--- NOTE | 2022-10-22 01:41 | NUR ---
Xray at bedside
--- NOTE | 2022-10-22 01:48 | NUR ---
Patient resting comfortably in bed. Denies chest pain.
[2022-10-22 01:50] LABS: HEMATOCRIT 38.5 % (31.2-41.9); MEAN CORPUSCULAR HEMOGLOBIN 32.9 uug (24.7-32.8); MEAN CORPUSCULAR VOLUME 99.3 fL (75.5-95.3); PLATELET COUNT (AUTO) 256 K/uL (179-408)
[2022-10-22] MEDS ORDERED: ASPIRIN 81 MG TAB.CHEW ONE (01:55)
[2022-10-22 02:08] LABS: CARBON DIOXIDE 24 mmol/L (21-32); CHLORIDE 95 mmol/L (98-107); CREATININE 3.5 mg/dL (0.6-1.3); POTASSIUM 3.8 mmol/L (3.5-5.1); UREA NITROGEN, BLOOD 21 mg/dL (7-18)
[2022-10-22 02:10] LABS: GLUCOSE 359 mg/dL (74-106)
[2022-10-22] MEDS ORDERED: PROCHLORPERAZINE EDISYLATE 10 MG/2 ML VIAL ONE (03:59)
[2022-10-22] MEDS ORDERED: PROCHLORPERAZINE EDISYLATE 10 MG/2 ML VIAL IV ONE (04:00)
[2022-10-22] MEDS ORDERED: CLONIDINE HCL 0.1 MG TABLET PO ONE (04:00)
--- NOTE | 2022-10-22 04:05 | NUR ---
Patient had 1x 100ml of green emesis. Dr. Bryson at bedside. Compazine 10mg IV ordered for nausea.
[2022-10-22] MEDS ORDERED: CLONIDINE HCL 0.1 MG TABLET ONE (04:26)
--- NOTE | 2022-10-22 04:53 | NUR ---
Patient taken to CT via gurdc accompanied by
--- NOTE | 2022-10-22 05:42 | NUR ---
Dr. Bryson notified of patient's blood pressure 202/70.
[2022-10-22] MEDS ORDERED: hydrALAZINE HCL IV 20 MG in IV NORMAL SALINE 50 ML IV SCH (06:00)
[2022-10-22] MEDS ORDERED: hydrALAZINE HCL 20 MG/1 ML VIAL IV ONE (06:30)
[2022-10-22 06:32] LABS: *BILIRUBIN,URIN NEGATIVE (NEGATIVE); *BLOOD, URINE 3+ (NEGATIVE); *CLARITY,URINE CLEAR (CLEAR); *COLOR,URINE Other (YELLOW); *KETONES,URINE TRACE (NEGATIVE); *UROBILINOGEN,URINE 0.2 E.U./dl (NORMAL); LEUKOCYTE ESTERASE ,URINE 1+ (NEGATIVE); NITRITE, URINE NEGATIVE (NEGATIVE); UGLUCOSE 1+ (NEGATIVE)
--- NOTE | 2022-10-22 07:00 | NUR ---
receive pt. from MARCI Farris. Pt. in bed awake, AOx2
--- NOTE | 2022-10-22 07:04 | NUR ---
Report given to Olya COVARRUBIAS
[2022-10-22] MEDS ORDERED: hydrALAZINE HCL 20 MG/1 ML VIAL ONE (07:06)
[2022-10-22] MEDS ORDERED: CEFTRIAXONE 1 G in IV DEXTROSE 5% 50 ML IV ONE (07:30)
[2022-10-22] MEDS ORDERED: CEFTRIAXONE /D5W 50ML IVPB **ER PYXIS IV ONE (07:32)
[2022-10-22] MEDS ORDERED: ONDANSETRON 4 MG/2 ML VIAL IV PRN (08:45)
[2022-10-22] MEDS ORDERED: MAGNESIUM HYDROXIDE 30 ML LIQUID UDC PO PRN (08:45)
[2022-10-22] MEDS ORDERED: CEFTRIAXONE 1 G in IV DEXTROSE 5% 50 ML IV SCH (08:45)
[2022-10-22] MEDS: BLOOD SUGAR DIAGNOSTIC 1 EACH STRIP VI SCH ×4 (08:45→21:55)
[2022-10-22] MEDS ORDERED: DEXTROSE 50% 50 ML DISP.SYRIN IV PRN (08:45)
[2022-10-22] MEDS ORDERED: ISOSORBIDE DINITRATE 10 MG TABLET PO SCH (09:00)
[2022-10-22] MEDS ORDERED: ISOSORBIDE MONONITRATE 30 MG TAB.SR.24H PO SCH (09:00)
--- NOTE | 2022-10-22 09:33 | NUR ---
transferring pt. upstairs
[2022-10-22 10:00] VITALS: BP 157/52
--- NOTE | 2022-10-22 10:15 | NUR ---
RECEIVED FROM ER: 1) Received from ER AO x2 - dysphasic. 2) Hx: Obese 191lbs, neuromuscular dysfunction of bladder, TIA, Anaemia, insomnia, and oropharyngeal phase hemiparesis, DM - IN THE 300 - 400 in ambulance. 3) Patient has a sliding scale 4) On 2 liter oxygen on admission sats in the high 90s in ER. 5) Diaper in situ - dialysis patient, patient not able to advise RN if she is anuric or not. 6) Pressure are - old healing pressure sore scab - pic in folder. No sign s on bruising or open wounds observed. 7) Iv access 22g in the right FA - saline locked. No sign of infection, inflammation, - patent , clean and dry. 8) Will continue to assess, plan, implement, and treat accordingly.
--- NOTE | 2022-10-22 11:01 | NUR ---
HIGH BLOOD SUGAR - 509 - MD on the unit informed: 1) Give 10 units 2) Recheck in one hour 3) No iv fluids 4) Night nurses to give Lantus at night. 5) Will continue to assess, signs of hyper glycemia.
--- NOTE | 2022-10-22 11:57 | NUR ---
NEXT OF KIN CALLED: 1) Niece Darlene Cole [phone] called and stated that her mum has power of assistant city attorney - Tali Trejo (lives in [place]) [phone]. 2) advised to let her know that a copy will be required for patient's file. 3) Await to receive copy
[2022-10-22] MEDS: INSULIN REGULAR, HUMAN 300 UNIT/3 ML VIAL SQ PRN ×4 (12:13→22:08)
[2022-10-22] MEDS: DOCUSATE SODIUM 100 MG CAPSULE PO SCH ×2 (12:14→18:08)
[2022-10-22] MEDS ORDERED: SEVELAMER CARBONATE 800 MG TABLET PO SCH (12:30)
[2022-10-22] MEDS ORDERED: AMIN887L PO (12:35)
[2022-10-22] MEDS ORDERED: POLY15DR31 EACHEYE (12:40)
[2022-10-22] MEDS ORDERED: CHOL10005 PO (12:41)
[2022-10-22] MEDS ORDERED: INSU100V7 SQ (12:49)
--- NOTE | 2022-10-22 13:29 | NUR ---
EATING & DRINKING /LUNCH 1) Didn't eat any lunch because of missing teeth. 2) Will call [facility] to see if they can brink in dentures. 3) Will do ST consult and dietary consult
[2022-10-22] MEDS: METOPROLOL TARTRATE 50 MG TABLET PO SCH ×2 (13:46→21:00)
[2022-10-22] MEDS: GABAPENTIN 100 MG CAPSULE PO SCH ×2 (13:46→21:57)
[2022-10-22] MEDS: ASPIRIN 81 MG TAB.CHEW PO SCH (13:46)
[2022-10-22] MEDS: AMLODIPINE 10 MG TABLET PO SCH (13:47)
[2022-10-22 13:48] LABS: BACTERIA,URINE MANY /HPF (NONE SEEN); RBC,URINE 50-80 /HPF (0-3); WBC,URINE 20-50 /HPF (0-3)
[2022-10-22 13:49] LABS: CALCIUM CARBONATE CRYSTALS,UR NONE SEEN /HPF (NONE SEEN); CALCIUM OXALATE CRYSTALS,UR NONE SEEN /HPF (NONE SEEN); CALCIUM PHOSPHATE CRYSTALS,UR NONE SEEN /HPF (NONE SEEN); COARSE GRANULAR CASTS,URINE NONE SEEN /LPF; CYSTINE CRYSTALS,URINE NONE SEEN /HPF (NONE SEEN); FATTY CASTS,URINE NONE SEEN /LPF (NONE SEEN); MUCUS,URINE NONE SEEN /LPF (0-FEW); RED BLOOD CELL CASTS,URINE NONE SEEN /LPF (NONE SEEN); SPERM,URINE NONE SEEN /HPF (NONE SEEN); SQUAMOUS EPITHELIAL CELL,UR MANY /HPF (NONE SEEN); TRICHOMONAS,URINE NONE SEEN /HPF (NONE SEEN); TRIPLE PHOSPHATE CRYSTAL,UR NONE SEEN /HPF (NONE SEEN); TYROSINE CRYSTAL,URINE NONE SEEN /HPF (NONE SEEN); URIC ACID CRYSTALS,URINE NONE SEEN /HPF (NONE SEEN); URINE AMORPHOUS PHOSPHATES NONE SEEN /HPF; URINE AMORPHOUS URATE NONE SEEN /HPF; WAXY CASTS,URINE NONE SEEN /LPF (NONE SEEN); YEAST,URINE NONE SEEN /HPF (NONE SEEN)
[2022-10-22] MEDS: INSULIN GLARGINE,HUM 300 UNITS/3 ML CARTRIDGE SQ SCH (14:03)
[2022-10-22] MEDS: FOLIC ACID/VITAMIN B COMP W-C TABLET PO SCH (14:05)
[2022-10-22] MEDS: HYDROCODONE/APAP 5-325MG TABLET PO PRN (14:17)
--- NOTE | 2022-10-22 14:17 | NUR ---
PAIN MANAGEMENT: 1) C/o of right leg pain 2) Blanchard administered and await effect
--- NOTE | 2022-10-22 15:31 | NUR ---
ECHOGRAM: 1) Patient having Echogram at the time of this report. 2) Clinically stable
--- NOTE | 2022-10-22 15:58 | NUR ---
IV ACCESS: MIDLINE INSERTED 18G - LEFT UPPER ARM - PATENT, CLEAN, AND DRY.
--- NOTE | 2022-10-22 15:58 | NUR ---
VITAL SIGNS: BP 165/62 - HYDRALAZINE ADMINISTERED PRESCRIBED - AWAITING EFFECT
[2022-10-22 17:11] VITALS: BP 165/65
[2022-10-22] MEDS: ACETAMINOPHEN 325 MG TABLET PO PRN (18:08)
[2022-10-22] MEDS: SEVELAMER CARBONATE 800 MG POWD.PACK PO SCH (18:31)
[2022-10-22] MEDS: SENNOSIDES 1 TABLET PO SCH (18:31)
--- NOTE | 2022-10-22 19:24 | NUR ---
ENDORSED CARE TO NIGHT NURSE ACCORDINGLY
[2022-10-22] MEDS ORDERED: INSULIN GLARGINE,HUM 300 UNITS/3 ML CARTRIDGE SQ SCH (21:00)
[2022-10-22] MEDS: ESCITALOPRAM OXALATE 10 MG TABLET PO SCH ×2 (21:55→22:08)
[2022-10-23] MEDS: PANTOPRAZOLE SODIUM 40 MG TABLET.DR PO SCH (06:08)
[2022-10-23] MEDS: INSULIN REGULAR, HUMAN 300 UNIT/3 ML VIAL SQ PRN ×3 (06:15→21:58)
[2022-10-23] MEDS: BLOOD SUGAR DIAGNOSTIC 1 EACH STRIP VI SCH ×4 (06:23→21:54)
--- NOTE | 2022-10-23 06:56 | NUR ---
Patient overall had a good night, c/o severe headache one time and she was given norco with good relief. She was a bit anxious but calm down after receiving pain meds. Last blood sugar 171 and she was given coverage. No acute distress noted.
[2022-10-23 07:15] LABS: HEMATOCRIT 35.3 % (31.2-41.9); MEAN CORPUSCULAR HEMOGLOBIN 31.8 uug (24.7-32.8); PLATELET COUNT (AUTO) 198 K/uL (179-408)
[2022-10-23 07:27] VITALS: BP 136/68
--- NOTE | 2022-10-23 07:30 | NUR ---
RECEIVED FROM NIGHT NURSE: 1) Received AO x2 - asleep comfortably, no signs of pain, SOB - 2 Liters via nasal cannula. 2) Patient remains on sliding scale - bS with night nurse 171 - 2 units of insulin was administered. 3) No bowel movement - remains on laxatives as prescribed. Diaper in situ. 4) Patient due dialysis today - will follow up with dialysis nurses for time of administration. 5) Pressure are - old healing pressure sore scab - pic in folder. No sign s on bruising or open wounds observed. 6) Will continue to assess, plan, implement and evaluate care accordingly.
[2022-10-23 07:38] LABS: CARBON DIOXIDE 23 mmol/L (21-32); CHLORIDE 96 mmol/L (98-107); CHOLESTEROL 103 mg/dL (<200); CREATININE 5.1 mg/dL (0.6-1.3); GLUCOSE 164 mg/dL (74-106); HDL CHOLESTEROL 45 mg/dL (40-60); MAGNESIUM 1.5 mg/dL (1.8-2.4); PHOSPHOROUS 2.8 mg/dL (2.5-4.9); TRIGLYCERIDES 91 MG/DL (30-150); UREA NITROGEN, BLOOD 39 mg/dL (7-18)
[2022-10-23] MEDS ORDERED: CEFTRIAXONE 1 G in IV DEXTROSE 5% 50 ML IV SCH (08:00)
[2022-10-23] MEDS: AMLODIPINE 10 MG TABLET PO SCH ×2 (09:00→09:08)
[2022-10-23] MEDS: ISOSORBIDE DINITRATE 10 MG TABLET PO SCH ×2 (09:00→09:11)
[2022-10-23] MEDS: METOPROLOL TARTRATE 50 MG TABLET PO SCH ×3 (09:00→21:53)
[2022-10-23] MEDS: GABAPENTIN 100 MG CAPSULE PO SCH ×2 (09:08→21:53)
[2022-10-23] MEDS: SENNOSIDES 1 TABLET PO SCH ×2 (09:08→17:04)
[2022-10-23] MEDS: DOCUSATE SODIUM 100 MG CAPSULE PO SCH ×2 (09:08→17:04)
[2022-10-23] MEDS: ASPIRIN 81 MG TAB.CHEW PO SCH (09:09)
[2022-10-23] MEDS: FOLIC ACID/VITAMIN B COMP W-C TABLET PO SCH (09:09)
[2022-10-23] MEDS: SEVELAMER CARBONATE 800 MG POWD.PACK PO SCH ×3 (09:10→18:00)
[2022-10-23] MEDS ORDERED: MAGNESIUM SULFATE/D5W 100 ML IV ONE (09:15)
[2022-10-23] MEDS: INSULIN GLARGINE,HUM 300 UNITS/3 ML CARTRIDGE SQ SCH (09:15)
--- NOTE | 2022-10-23 09:31 | NUR ---
9AM MEDICATION: 1) Rios administered as prescribed except: (i) Maxepime and Magnesium - pharmacy called as meds not available and not verified on EMAR. 2) Pharmacist will verify meds and send the bags angeline.
--- NOTE | 2022-10-23 09:33 | NUR ---
WASTE SPECIALIST REVIEW: 1) Reviewed by JASMIN Mcnally this am - no new orders. 2) WASTE SPECIALIST will refer patient to ID team - for further assessment
[2022-10-23] MEDS ORDERED: CEFEPIME HCL 1 G in IV DEXTROSE 5% 50 ML IV SCH (10:30)
[2022-10-23] MEDS ORDERED: VANCOMYCIN IV 1,000 MG in IV DEXTROSE 5% 250 ML IV SCH (11:30)
[2022-10-23] MEDS: MEROPENEM 500 MG in IV NORMAL SALINE 50 ML IV SCH (17:04)
--- NOTE | 2022-10-23 18:56 | NUR ---
PROJECT DEVELOPMENT ENGINEER ENDORSEMENT - WILL ENDORSE CARE TO NIGHT STAFF ACCORDINGLY.
[2022-10-23 20:35] VITALS: BP 131/32
[2022-10-23] MEDS: ATORVASTATIN 40 MG TABLET PO SCH (21:53)
[2022-10-23] MEDS ORDERED: CEFEPIME HCL 0.5 G in IV DEXTROSE 5% 50 ML IV SCH (22:00)
[2022-10-24] MEDS: HYDROCODONE/APAP 5-325MG TABLET PO PRN ×2 (00:33→08:13)
[2022-10-24 00:38] VITALS: BP 110/30
[2022-10-24 04:11] VITALS: BP 145/29
[2022-10-24] MEDS: PANTOPRAZOLE SODIUM 40 MG TABLET.DR PO SCH (06:07)
[2022-10-24] MEDS: BLOOD SUGAR DIAGNOSTIC 1 EACH STRIP VI SCH ×4 (06:10→20:59)
[2022-10-24 06:16] LABS: HEMATOCRIT 33.6 % (31.2-41.9); MEAN CORPUSCULAR HEMOGLOBIN 31.9 uug (24.7-32.8); MEAN CORPUSCULAR VOLUME 98.8 fL (75.5-95.3); PLATELET COUNT (AUTO) 129 K/uL (179-408)
[2022-10-24 06:21] LABS: CARBON DIOXIDE 27 mmol/L (21-32); CHLORIDE 95 mmol/L (98-107); CREATININE 4.6 mg/dL (0.6-1.3); GLUCOSE 262 mg/dL (74-106); POTASSIUM 3.8 mmol/L (3.5-5.1); UREA NITROGEN, BLOOD 39 mg/dL (7-18)
--- NOTE | 2022-10-24 07:30 | NUR ---
RECEIVED FROM NIGHT NURSE: 1) Received AO x2 - asleep comfortably, no signs of pain, SOB - 2 Liters via nasal cannula. 2) Patient remains on sliding scale - bS with night nurse 225 - 2 units of insulin due was administered. 3) No bowel movement - remains on laxatives as prescribed. Diaper in situ. 4) Patient due dialysis tomorrow - will follow up with dialysis nurses for time of administration. 5) Pressure are - old healing pressure sore scab - pic in folder. No sign s on bruising or open wounds observed. 6) Will continue to assess, plan, implement and evaluate care accordingly.
--- NOTE | 2022-10-24 07:30 | NUR ---
RECEIVED FROM NIGHT NURSE: 1) Received AO x2 - asleep comfortably, no signs of pain, SOB - 2 Liters via nasal cannula. 2) Patient remains on sliding scale - bS with night nurse 225 - due2 units of insulin 3) No bowel movement - remains on laxatives as prescribed. Diaper in situ. 4) Patient due dialysis tomorrow - will follow up with dialysis nurses for time of administration. 5) Pressure are - old healing pressure sore scab - pic in folder. No sign s on bruising or open wounds observed. Protective dressing applied. 6) Will continue to assess, plan, implement and evaluate care accordingly.
--- NOTE | 2022-10-24 07:45 | NUR ---
INSULIN COVER;- 0 2 UNITS SLIDING SCALE ADMINISTERED PRESCRIBED bs 2
[2022-10-24] MEDS: INSULIN REGULAR, HUMAN 300 UNIT/3 ML VIAL SQ PRN ×3 (07:51→21:07)
[2022-10-24] MEDS: INSULIN GLARGINE,HUM 300 UNITS/3 ML CARTRIDGE SQ SCH (08:06)
[2022-10-24] MEDS: SENNOSIDES 1 TABLET PO SCH ×2 (08:10→16:08)
[2022-10-24] MEDS: SEVELAMER CARBONATE 800 MG POWD.PACK PO SCH ×3 (08:10→18:00)
[2022-10-24] MEDS: DOCUSATE SODIUM 100 MG CAPSULE PO SCH ×2 (08:10→16:08)
[2022-10-24] MEDS: FOLIC ACID/VITAMIN B COMP W-C TABLET PO SCH (08:10)
[2022-10-24] MEDS: GABAPENTIN 100 MG CAPSULE PO SCH ×2 (08:10→21:18)
[2022-10-24] MEDS: METOPROLOL TARTRATE 50 MG TABLET PO SCH ×2 (08:12→17:47)
[2022-10-24] MEDS: ISOSORBIDE DINITRATE 10 MG TABLET PO SCH (08:12)
[2022-10-24] MEDS: AMLODIPINE 10 MG TABLET PO SCH (08:13)
[2022-10-24] MEDS: ASPIRIN 81 MG TAB.CHEW PO SCH (08:13)
[2022-10-24] MEDS: MEROPENEM 500 MG in IV NORMAL SALINE 50 ML IV SCH ×2 (08:15→21:22)
--- NOTE | 2022-10-24 08:15 | NUR ---
BREAKFAST: Patient only ate 3/4 breakfast - refused toast as its too hard for her
--- NOTE | 2022-10-24 08:36 | NUR ---
INSULIN COVER;- 32 units LANTUS ADMINISTERED PRESCRIBED bs 225
--- NOTE | 2022-10-24 09:11 | NUR ---
1) NICE CALLED (DARLENE) UPDATE ON DETERIORATION OF THIS MORNING PROVIDED [phone]. 2) Darlene stated that patient's [facility] has DNR directive - will advise them to bring a copy. 3) The number for [facility] - [phone] 4) Darlene also stated that patient's sister Tali Munoz0 [phone] has financial power of family law attorney
--- NOTE | 2022-10-24 11:25 | NUR ---
ROUNDIN) Noticed patient less responsive, and less alert compared to this morning. 2) Vitals stable except T102.7 - cold therapy applied. 3) Bed covers removed - no fan therapy available. 4) Nasal cannular replaced with a rebreathing mask and 15 liters oxygen. 4) Left message for MD and await response.
--- NOTE | 2022-10-24 11:30 | NUR ---
11:30 BS NOT SHOWING IN INTERVENTION - USED ITU MACHINE ? REASON WHY - 245 WAS THE BS.
[2022-10-24] MEDS ORDERED: ACETAMINOPHEN 650 MG SUPP.RECT RC PRN (11:45)
--- NOTE | 2022-10-24 12:05 | NUR ---
MD/BORING MACHINE OPERATOR HELPER RESPONSE: JASMIN Simmons responded, no further orders provided because: (1) patient already on ATB for sepsis (2) Changed PO Tylenol since patient is drowsy - aspiration risk. (3) Continue to monitor, plan, implement and evaluate care accordingly
[2022-10-24 12:07] VITALS: BP 110/44
--- NOTE | 2022-10-24 13:35 | NUR ---
CRITICAL LAB RESULTS: 1) informed Lactic Acid results 2.3 2) No new orders received.
--- NOTE | 2022-10-24 14:22 | NUR ---
ROUNDING/VITALS 1) Temperature slightly down 101.3 - ice and towel therapy remains in progress. 2) Other vitals no change - will continue to treat accordingly.
--- NOTE | 2022-10-24 14:29 | NUR ---
TEMPERATURE CONTROL - 100.2 - CONTINUE COLD THERAPY CONTINUES
[2022-10-24 14:55] LABS: BILIRUBIN,DIRECT 0.3 mg/dL (0.0-0.2); BILIRUBIN,TOTAL 0.5 mg/dL (0.2-1.0)
--- NOTE | 2022-10-24 15:34 | NUR ---
TRACTOR MECHANIC APPRENTICE REVIEW: 1) Asked TRACTOR MECHANIC APPRENTICE to review patient - in view of condition - remains less responsive 2) TRACTOR MECHANIC APPRENTICE saw patient no new orders. 3) Continue to assess, evaluate and treat accordingly.
[2022-10-24 16:03] VITALS: BP 92/40
--- NOTE | 2022-10-24 16:10 | NUR ---
ROUNDING: No change in condition - will continue to monitor and treat accordingly
--- NOTE | 2022-10-24 16:19 | NUR ---
BLOOD SUGAR MONITORIN) BS 200 and insulin administered accordingly. 2) No sign of hypo/hyperglycemia observed
--- NOTE | 2022-10-24 16:45 | NUR ---
ROUNDIN) Noticed patient sweaty and clammy. 2) Checked temperature 99.1 3) Blood sugar 200 4) CARLOS informded
--- NOTE | 2022-10-24 16:50 | NUR ---
VITALS: 1) BP 106/46, T99.1, R14, Pulse 76, O2 Sats 92% 2) CARLOS informed - ordered blood gas 3) CARLOS informed NUCLEAR MEDICAL TECH - will wait for blood gases
[2022-10-24 18:24] LABS: ABG BASE EXCESS -1.5 mmol/L; ABG HCO3 24.2 mmol/L; ABG PCO2 44.5 mmHg (35.0-45.0); ABG PH 7.353 (7.350-7.450); ABG PO2 373.5 mmHg (75.0-100.0); ABG SITE RIGHT RADIAL; ABG TOTAL HEMOGLOBIN 11.9 G/dL (12.0-16.0); COHb 0.7 % (0.5-1.5); MetHb 0.2 % (0.0-1.5); O2Hb 98.8 % (94.0-97.0)
--- NOTE | 2022-10-24 18:34 | NUR ---
AUTOMATION OPERATOR REVIEW AND ENDORSEMENT: 1) ABG results back - patient over oxygenated - reduced oxygen to 2 liters via nasal cannula. 2) Patient clinically stable. 3) Will endorse care to night staff accordingly.
[2022-10-24] MEDS: ATORVASTATIN 40 MG TABLET PO SCH (21:18)
[2022-10-24] MEDS: ESCITALOPRAM OXALATE 10 MG TABLET PO SCH (21:19)
[2022-10-24] MEDS: MUPIROCIN 2% OINT 22 GM TUBE NS SCH (21:22)
[2022-10-25 02:32] VITALS: BP 96/40
[2022-10-25 05:00] VITALS: BP 132/43
[2022-10-25] MEDS: BLOOD SUGAR DIAGNOSTIC 1 EACH STRIP VI SCH ×4 (06:20→20:23)
[2022-10-25] MEDS: PANTOPRAZOLE SODIUM 40 MG TABLET.DR PO SCH (06:25)
[2022-10-25 06:41] LABS: HEMATOCRIT 31.1 % (31.2-41.9); MEAN CORPUSCULAR HEMOGLOBIN 32.4 uug (24.7-32.8); MEAN CORPUSCULAR VOLUME 99.5 fL (75.5-95.3); PLATELET COUNT (AUTO) 97 K/uL (179-408)
[2022-10-25 07:17] LABS: CARBON DIOXIDE 26 mmol/L (21-32); CHLORIDE 94 mmol/L (98-107); CREATININE 5.9 mg/dL (0.6-1.3); GLUCOSE 248 mg/dL (74-106); POTASSIUM 3.5 mmol/L (3.5-5.1); UREA NITROGEN, BLOOD 57 mg/dL (7-18)
--- NOTE | 2022-10-25 07:30 | NUR ---
RECEIVED FROM NIGHT NURSE: 1) Received AO x2 - asleep comfortably, no signs of pain, SOB - 2 Liters via nasal cannula. 2) Patient remains on sliding scale - bS with night nurse 252 - due 6 units of insulin 3) No bowel movement - remains on laxatives as prescribed. Diaper in situ. 4) Patient due dialysis tomorrow - will follow up with dialysis nurses for time of administration. 5) Pressure are - old healing pressure sore scab - pic in folder. No sign s on bruising or open wounds observed. Protective dressing remains intact. 6) Will continue to assess, plan, implement and evaluate care accordingly.
--- NOTE | 2022-10-25 08:35 | NUR ---
HD TODAY - Will hold all BP meds today - MANAGER CATH LAB aware
[2022-10-25] MEDS: ISOSORBIDE DINITRATE 10 MG TABLET PO SCH (08:36)
[2022-10-25] MEDS: METOPROLOL TARTRATE 50 MG TABLET PO SCH ×3 (08:37→20:24)
[2022-10-25] MEDS: AMLODIPINE 10 MG TABLET PO SCH (08:38)
[2022-10-25] MEDS: MEROPENEM 500 MG in IV NORMAL SALINE 50 ML IV SCH ×2 (09:20→20:53)
[2022-10-25] MEDS: SEVELAMER CARBONATE 800 MG POWD.PACK PO SCH ×3 (09:37→16:43)
[2022-10-25] MEDS: FOLIC ACID/VITAMIN B COMP W-C TABLET PO SCH (09:37)
[2022-10-25] MEDS: GABAPENTIN 100 MG CAPSULE PO SCH ×2 (09:37→20:53)
[2022-10-25] MEDS: ASPIRIN 81 MG TAB.CHEW PO SCH (09:37)
[2022-10-25] MEDS: DOCUSATE SODIUM 100 MG CAPSULE PO SCH ×2 (09:37→16:41)
[2022-10-25] MEDS: SENNOSIDES 1 TABLET PO SCH ×2 (09:38→16:41)
[2022-10-25] MEDS: INSULIN GLARGINE,HUM 300 UNITS/3 ML CARTRIDGE SQ SCH (10:07)
[2022-10-25] MEDS: INSULIN REGULAR, HUMAN 300 UNIT/3 ML VIAL SQ PRN ×3 (10:07→20:53)
[2022-10-25] MEDS: MUPIROCIN 2% OINT 22 GM TUBE NS SCH ×2 (10:11→21:33)
[2022-10-25 11:01] VITALS: BP 133/43
[2022-10-25] MEDS: MORPHINE SULFATE 2 MG/1 ML DISP.SYRIN IV PRN (11:26)
--- NOTE | 2022-10-25 11:26 | NUR ---
PAIN MANAGEMENT: 1) c/o of pain in the right hip area. 2) MD informed - ordered x-ray of the femur 3) Order in place - awaiting radiologist to call on patient.
--- NOTE | 2022-10-25 11:41 | NUR ---
PAIN MANAGEMENT: 1) Patient moaning and calling because of leg pain 2) Morphine iv administered as prescribed.
--- NOTE | 2022-10-25 12:22 | NUR ---
HIM X-RAY IN PROGRESS AT THE TIME OF THIS REPORT - AWAIT RESULTS
[2022-10-25] MEDS: HYDROCODONE/APAP 5-325MG TABLET PO PRN (12:34)
--- NOTE | 2022-10-25 12:34 | NUR ---
PAIN MANAGEMENT - Watson administered for leg pain
--- NOTE | 2022-10-25 14:12 | NUR ---
ROSAURA BOOTHE: 1) Informed by glass technician of patient's heart rate of 145-155. 2) Checked vitals - BP 182/54, P133, T98.1, R18. 3) informed - awaiting order
--- NOTE | 2022-10-25 14:21 | NUR ---
MD RESPONSE : 1) ordered beta heidy 2) Metoprolol administered - awaiting effect
--- NOTE | 2022-10-25 14:26 | NUR ---
TACHYCARDIA MANAGEMENT: 1) EKG requested and taken by RT. 2) Cafe Aide provided with a copy 3) Cafe Aide will contact
[2022-10-25] MEDS ORDERED: DILTIAZEM HCL 25 MG IV IV STA (14:40)
--- NOTE | 2022-10-25 14:45 | NUR ---
TACHYCARDIA MANAGEMENT/CARDIOLOGY REVIEW: 1) Ordered Diltazem/Cardizem iv bolus 20mg 2) Amiodarone bolus and a drip 3) Order placed for Diltiazem and sent another message to MD to verify dosage and rates.
[2022-10-25 15:04] VITALS: BP 125/40
[2022-10-25] MEDS ORDERED: AMIODARONE HCL IV 150 MG in IV DEXTROSE 5% 100 ML IV ONE ×2 (15:15→16:30)
[2022-10-25] MEDS ORDERED: AMIODARONE HCL IV 450 MG in IV DEXTROSE 5% 250 ML IV PRN ×2 (15:30→17:00)
--- NOTE | 2022-10-25 15:36 | NUR ---
TARCHYCARDIAC MANAGEMENT: 1) Bolus Diltazem administered as prescribed 20mg in 2 minutes. 2) BP 172/58, PULSE 101 3) Pharmacy needs to patient upgraded to Tele TD for Amiodarone drip to be verified.
--- NOTE | 2022-10-25 16:44 | NUR ---
TACHYCARDIAC UPDATE: 1) Commence iv bolus - Amiodarone as prescribed. 2) Vitals remain stable - B/P112/40, P79, T98.1 3) Patient much more comfortable
[2022-10-25] MEDS: AMIODARONE HCL IV 450 MG in IV DEXTROSE 5% 250 ML IV PRN (17:00)
--- NOTE | 2022-10-25 19:01 | NUR ---
1) WILL ENDORSE CARE TO NIGHT STAFF ACCORDINGLY 2) iv Amiodarone drip running per regime - vitals within normal limts - refer to iv spreadsheet 3) Patient clinically stable. 4) Dialysis in progress - endorsed care (Amiodarone etc) to dialysis nurse.
--- NOTE | 2022-10-25 19:30 | NUR ---
PRODUCTION PLANNER AT B/S DIALYZING PATIENT PER PRODUCTION PLANNER PATIENT V/S HR 53 (L) BP 79/39 (L) ASSIGNED RN STOP AMIODARONE DRIP PER PROTOCOL SEE EMAR. PRODUCTION PLANNER SAID SHE WILL CONTINUE TO MONITOR V/S STOP ULTRAFILTRATION INSTEAD SHE GAVE 200 CC OF SALINE BOLUS
[2022-10-25 20:00] VITALS: BP 138/61
--- NOTE | 2022-10-25 20:15 | NUR ---
resumed amiodarone drip v/s bp 138/61 hr 68 as per c application developer she back on ultrafiltration and she is able to removed fluids at this time .
--- NOTE | 2022-10-25 20:24 | NUR ---
Lopressor medication not given patient having dialysis and bp is very unstable current bp right now is 121/53 hr 64 rr 18 angelita rn will continue to monitor v/s -bp .
[2022-10-25] MEDS: ESCITALOPRAM OXALATE 10 MG TABLET PO SCH (20:53)
[2022-10-25] MEDS: ATORVASTATIN 40 MG TABLET PO SCH (20:54)
--- NOTE | 2022-10-25 21:45 | NUR ---
tolerated HD fluid removal of 900 ml .
[2022-10-26 00:15] VITALS: BP 105/33
[2022-10-26 02:06] LABS: HEPATITIS B SURFACE AG Negative (Negative)
--- NOTE | 2022-10-26 02:30 | NUR ---
am care done changed soiled linens and gown turned and reposition patient off loaded bilateral upper and lower extremities with pillows . hob up , oral care .
[2022-10-26 04:00] VITALS: BP 120/43
[2022-10-26] MEDS: PANTOPRAZOLE SODIUM 40 MG TABLET.DR PO SCH (06:08)
[2022-10-26] MEDS: BLOOD SUGAR DIAGNOSTIC 1 EACH STRIP VI SCH ×4 (06:49→20:31)
[2022-10-26 06:58] LABS: CARBON DIOXIDE 28 mmol/L (21-32); CHLORIDE 99 mmol/L (98-107); CREATININE 4.1 mg/dL (0.6-1.3); GLUCOSE 278 mg/dL (74-106); POTASSIUM 3.9 mmol/L (3.5-5.1); UREA NITROGEN, BLOOD 33 mg/dL (7-18)
[2022-10-26 07:00] LABS: HEMATOCRIT 33.3 % (31.2-41.9); MEAN CORPUSCULAR HEMOGLOBIN 31.7 uug (24.7-32.8); MEAN CORPUSCULAR VOLUME 100.4 fL (75.5-95.3); PLATELET COUNT (AUTO) 86 K/uL (179-408)
[2022-10-26] MEDS: AMIODARONE HCL IV 450 MG in IV DEXTROSE 5% 250 ML IV PRN (07:28)
--- NOTE | 2022-10-26 07:30 | NUR ---
Sleeping, appears comfortable. Tele SR. Amiodarone drip at 0.5 mg/hr to finish 24 hour protocol per it senior analyst order. O2 at 2L/NC. RSC permacath intact
[2022-10-26 07:42] VITALS: BP 119/46
[2022-10-26] MEDS ORDERED: REMEDY ESSENTIAL ZINC PASTE 113 GM TOP PRN (07:45)
[2022-10-26] MEDS: MEROPENEM 500 MG in IV NORMAL SALINE 50 ML IV SCH ×2 (09:26→20:30)
[2022-10-26] MEDS: SEVELAMER CARBONATE 800 MG POWD.PACK PO SCH ×4 (09:26→18:02)
[2022-10-26] MEDS: FOLIC ACID/VITAMIN B COMP W-C TABLET PO SCH (09:27)
[2022-10-26] MEDS: MUPIROCIN 2% OINT 22 GM TUBE NS SCH ×2 (09:27→20:30)
[2022-10-26] MEDS: DOCUSATE SODIUM 100 MG CAPSULE PO SCH ×2 (09:27→18:00)
[2022-10-26] MEDS: METOPROLOL TARTRATE 50 MG TABLET PO SCH ×2 (09:27→20:57)
[2022-10-26] MEDS: SENNOSIDES 1 TABLET PO SCH ×2 (09:28→18:00)
[2022-10-26] MEDS: REMEDY ESSENTIAL ZINC PASTE 113 GM TOP SCH ×2 (09:28→20:41)
[2022-10-26] MEDS: GABAPENTIN 100 MG CAPSULE PO SCH ×2 (09:28→20:57)
[2022-10-26] MEDS: INSULIN GLARGINE,HUM 300 UNITS/3 ML CARTRIDGE SQ SCH (09:31)
[2022-10-26] MEDS: INSULIN REGULAR, HUMAN 300 UNIT/3 ML VIAL SQ PRN ×4 (09:31→20:31)
[2022-10-26] MEDS ORDERED: VANCOMYCIN IV 1,250 MG in IV DEXTROSE 5% 250 ML IV ONE (11:00)
[2022-10-26] MEDS ORDERED: VANCOMYCIN IV 1,000 MG in IV DEXTROSE 5% 250 ML IV ONE (12:00)
[2022-10-26 12:01] LABS: LYMPHOCYTES % (MANUAL) 1 % (20-40); NEUTROPHILS % (MANUAL) 98 % (42-75)
[2022-10-26 12:02] LABS: MONOCYTES % (MANUAL) 1 % (2-10)
[2022-10-26 12:03] LABS: LYMPHOCYTES % (MANUAL) 2 % (20-40); MONOCYTES % (MANUAL) 2 % (2-10); NEUTROPHILS % (MANUAL) 96 % (42-75)
--- NOTE | 2022-10-26 12:30 | NUR ---
BG 206, Insulin sliding scale given as ordered.
--- NOTE | 2022-10-26 13:52 | NUR ---
WOUND CARE CONSULT: PT PRESENTS WITH SACRAL STAGE 3 ULCER WITH SURROUNDING DTI/SCARRING, PRESENT ON ADMISSION. RECOMMENDATIONS MADE FOR SKIN PROTECTION AND WOUND CARE. DISCUSSED WITH NURSING STAFF. DR HUDSON CALLED FOR SURGICAL CONSULT. FIRST STEP LOW [facility] MATTRESS ON ORDER. IN AGREEMENT WITH PLAN OF CARE. Addendum: 10/26/22 at 1353 by JARVIS DAS RN Amended: Links added.
[2022-10-26 15:00] VITALS: BP 111/42
[2022-10-26] MEDS: MEDIHONEY= THERAHONEY 1.5 OZ TUBE TOP SCH (15:29)
[2022-10-26] MEDS: ACETAMINOPHEN 325 MG TABLET PO PRN (15:29)
[2022-10-26] MEDS: ASPIRIN 81 MG TAB.CHEW PO SCH (15:29)
--- NOTE | 2022-10-26 17:00 | NUR ---
Amiodarone drip discontinued per protocol. Tele SB 59
--- NOTE | 2022-10-26 18:30 | NUR ---
Lethargic but easily aroused, doesn't open eyes spontaneously, verbally responsive when prodded. Ist step mattress placed. Wound care done as ordered. Repositioned comfortably.
[2022-10-26 20:00] VITALS: BP 109/32
[2022-10-26] MEDS: AMIODARONE HCL 200 MG TABLET PO SCH (20:56)
[2022-10-26] MEDS: ESCITALOPRAM OXALATE 10 MG TABLET PO SCH (20:56)
[2022-10-26] MEDS: ATORVASTATIN 40 MG TABLET PO SCH (20:57)
--- NOTE | 2022-10-26 20:58 | NUR ---
Unable to give PO medication (Amiodarone, Lexapro, Neurontin, Lopressor and Lipitor), patient lethargic. VS as follow: BP 109/32, HR 53, RR 18 and temp. 98.5. Sinus vin on tele. Pale in appearance, slightly responsive to painful stimuli. In no apparent distress. Midline on left upper arm intact and patent. Perma cath on right upper chest with dressing clean and dry. Continue to monitor.
[2022-10-27] VITALS (7 sets, daily range): BP systolic 101–152; BP diastolic 32–53
--- NOTE | 2022-10-27 05:45 | NUR ---
In no acute distress. Mainly lethargic. Non-verbally responsive to tactile and painful stimuli. O2 at 2LPM via NC in place. O2 sat at99%. NSR on tele with HR of 61/min. No adverse reaction noted from IV antibiotic. Turned and reposition for comfort. Safety measure maintained.
[2022-10-27] MEDS: PANTOPRAZOLE SODIUM 40 MG TABLET.DR PO SCH (06:09)
[2022-10-27] MEDS: BLOOD SUGAR DIAGNOSTIC 1 EACH STRIP VI SCH ×4 (06:38→21:33)
[2022-10-27 07:28] LABS: HEMATOCRIT 33.8 % (31.2-41.9); MEAN CORPUSCULAR HEMOGLOBIN 31.7 uug (24.7-32.8); MEAN CORPUSCULAR VOLUME 101.1 fL (75.5-95.3); PLATELET COUNT (AUTO) 79 K/uL (179-408)
--- NOTE | 2022-10-27 07:30 | NUR ---
OPENS EYES FCI BUT NONVERBAL, NO SS OF PAIN OR DISTRESS. REMAINS ON KARYN STATUS SB 51 ON MONITOR
[2022-10-27 07:51] LABS: MAGNESIUM 2.1 mg/dL (1.8-2.4); PHOSPHOROUS 2.3 mg/dL (2.5-4.9)
[2022-10-27 07:53] LABS: CARBON DIOXIDE 27 mmol/L (21-32); CHLORIDE 98 mmol/L (98-107); CREATININE 5.1 mg/dL (0.6-1.3); GLUCOSE 164 mg/dL (74-106); POTASSIUM 3.9 mmol/L (3.5-5.1); UREA NITROGEN, BLOOD 46 mg/dL (7-18)
[2022-10-27] MEDS: SEVELAMER CARBONATE 800 MG POWD.PACK PO SCH ×3 (08:00→17:10)
[2022-10-27] MEDS ORDERED: VANCOMYCIN IV 500 MG in IV DEXTROSE 5% 100 ML IV PRN (08:00)
--- NOTE | 2022-10-27 08:30 | NUR ---
HEMODIALYSIS STARTED AT BEDSIDE BY HD STAFF
[2022-10-27] MEDS: METOPROLOL TARTRATE 50 MG TABLET PO SCH ×2 (09:00→21:32)
[2022-10-27] MEDS: FOLIC ACID/VITAMIN B COMP W-C TABLET PO SCH (09:00)
[2022-10-27] MEDS: ASPIRIN 81 MG TAB.CHEW PO SCH (09:00)
[2022-10-27] MEDS: SENNOSIDES 1 TABLET PO SCH ×2 (09:00→17:00)
[2022-10-27] MEDS: AMIODARONE HCL 200 MG TABLET PO SCH ×2 (09:00→21:31)
[2022-10-27] MEDS: DOCUSATE SODIUM 100 MG CAPSULE PO SCH ×2 (09:00→17:00)
[2022-10-27] MEDS: GABAPENTIN 100 MG CAPSULE PO SCH ×2 (09:00→21:32)
[2022-10-27] MEDS: INSULIN GLARGINE,HUM 300 UNITS/3 ML CARTRIDGE SQ SCH (09:00)
[2022-10-27] MEDS: MUPIROCIN 2% OINT 22 GM TUBE NS SCH ×2 (09:10→21:33)
[2022-10-27] MEDS: MEDIHONEY= THERAHONEY 1.5 OZ TUBE TOP SCH (09:13)
[2022-10-27] MEDS: REMEDY ESSENTIAL ZINC PASTE 113 GM TOP SCH ×2 (09:13→21:31)
--- NOTE | 2022-10-27 09:14 | NUR ---
po meds, lantus , ss insulin not given patient lethargic and not opening mouth. will observe
--- NOTE | 2022-10-27 09:40 | NUR ---
DR MORALES NOTIFIED OF LOW BP 91/40 DURING HD WITH ORDER TO GIVE ALBUMIN 25 MG IV X2 DOSES
[2022-10-27] MEDS: MEROPENEM 500 MG in IV NORMAL SALINE 50 ML IV SCH ×2 (09:52→21:31)
[2022-10-27] MEDS: ALBUMIN HUMAN 25% 50 ML IV SCH ×2 (09:52→10:59)
--- NOTE | 2022-10-27 11:36 | NUR ---
BP 124/50 NO C/O PAIN, TOLERATING DIALYSIS FAIRLY
--- NOTE | 2022-10-27 11:59 | NUR ---
HD COMPLICATED PATIENT TOLERATED FAIRLY WELL
[2022-10-27] MEDS: MICAFUNGIN SODIUM 100 MG in IV NORMAL SALINE 100 ML IV SCH (15:27)
[2022-10-27] MEDS: INSULIN REGULAR, HUMAN 300 UNIT/3 ML VIAL SQ PRN (17:11)
[2022-10-27] MEDS: ATORVASTATIN 40 MG TABLET PO SCH (21:31)
[2022-10-27] MEDS: ESCITALOPRAM OXALATE 10 MG TABLET PO SCH (21:33)
[2022-10-28 04:44] VITALS: BP 137/42
[2022-10-28] MEDS: PANTOPRAZOLE SODIUM 40 MG TABLET.DR PO SCH (06:03)
[2022-10-28 06:59] LABS: HEMATOCRIT 32.8 % (31.2-41.9); MEAN CORPUSCULAR HEMOGLOBIN 31.9 uug (24.7-32.8); MEAN CORPUSCULAR VOLUME 101.2 fL (75.5-95.3); PLATELET COUNT (AUTO) 68 K/uL (179-408)
[2022-10-28 07:18] LABS: CARBON DIOXIDE 23 mmol/L (21-32); CHLORIDE 103 mmol/L (98-107); GLUCOSE 220 mg/dL (74-106); POTASSIUM 3.9 mmol/L (3.5-5.1); UREA NITROGEN, BLOOD 34 mg/dL (7-18)
[2022-10-28] MEDS: BLOOD SUGAR DIAGNOSTIC 1 EACH STRIP VI SCH ×4 (07:19→23:25)
--- NOTE | 2022-10-28 07:20 | NUR ---
ATTEMPTED TO GIVE MORNING MEDS BUT STARTED TO COUGH
[2022-10-28 07:24] LABS: MAGNESIUM 2.2 mg/dL (1.8-2.4)
--- NOTE | 2022-10-28 07:24 | NUR ---
REPORT GIVEN TO MARCI NEWMAN
[2022-10-28] MEDS: SEVELAMER CARBONATE 800 MG POWD.PACK PO SCH ×3 (08:00→17:27)
[2022-10-28] MEDS ORDERED: AMIODARONE HCL IV 150 MG in IV DEXTROSE 5% 100 ML IV ONE (08:15)
[2022-10-28] MEDS ORDERED: DILTIAZEM HCL 25 MG IV IV ONE (08:15)
[2022-10-28] MEDS: ASPIRIN 81 MG TAB.CHEW PO SCH (08:27)
[2022-10-28] MEDS: FOLIC ACID/VITAMIN B COMP W-C TABLET PO SCH (08:28)
[2022-10-28] MEDS: DOCUSATE SODIUM 100 MG CAPSULE PO SCH ×2 (08:28→17:00)
[2022-10-28] MEDS: GABAPENTIN 100 MG CAPSULE PO SCH ×2 (08:28→21:00)
[2022-10-28] MEDS: SENNOSIDES 1 TABLET PO SCH ×2 (08:29→17:00)
[2022-10-28] MEDS: MEROPENEM 500 MG in IV NORMAL SALINE 50 ML IV SCH ×2 (08:49→22:23)
[2022-10-28] MEDS: METOPROLOL TARTRATE 50 MG TABLET PO SCH ×2 (09:00→21:00)
[2022-10-28] MEDS: INSULIN GLARGINE,HUM 300 UNITS/3 ML CARTRIDGE SQ SCH (09:00)
[2022-10-28] MEDS: MEDIHONEY= THERAHONEY 1.5 OZ TUBE TOP SCH (09:13)
[2022-10-28] MEDS: REMEDY ESSENTIAL ZINC PASTE 113 GM TOP SCH ×2 (09:13→21:00)
[2022-10-28] MEDS: MUPIROCIN 2% OINT 22 GM TUBE NS SCH ×2 (09:14→22:23)
[2022-10-28] MEDS: AMIODARONE HCL IV 450 MG in IV DEXTROSE 5% 250 ML IV PRN ×2 (09:55→17:58)
[2022-10-28] MEDS ORDERED: LIDOCAINE 2%-EPI 1:100,000 20 ML VIAL TP PRN (10:30)
[2022-10-28 12:06] VITALS: BP 145/50
[2022-10-28] MEDS: INSULIN REGULAR, HUMAN 300 UNIT/3 ML VIAL SQ PRN ×2 (12:20→17:40)
[2022-10-28] MEDS: MICAFUNGIN SODIUM 100 MG in IV NORMAL SALINE 100 ML IV SCH (15:01)
[2022-10-28 15:35] VITALS: BP 150/53
[2022-10-28] MEDS ORDERED: DEXTROSE 50% 50 ML DISP.SYRIN IV PRN (18:30)
[2022-10-28 20:32] VITALS: BP 128/42
[2022-10-28] MEDS: ATORVASTATIN 40 MG TABLET PO SCH (21:00)
[2022-10-28] MEDS: ESCITALOPRAM OXALATE 10 MG TABLET PO SCH (21:00)
[2022-10-29] MEDS: MORPHINE SULFATE 2 MG/1 ML DISP.SYRIN IV PRN ×2 (01:55→17:33)
[2022-10-29 04:56] VITALS: BP 137/43
[2022-10-29] MEDS: PANTOPRAZOLE SODIUM 40 MG TABLET.DR PO SCH (06:05)
[2022-10-29] MEDS: BLOOD SUGAR DIAGNOSTIC 1 EACH STRIP VI SCH ×3 (06:06→17:58)
--- NOTE | 2022-10-29 07:30 | NUR ---
REPORT GIVEN TO MARCI MCKINLEY
[2022-10-29 08:00] VITALS: BP 136/41
[2022-10-29] MEDS: SEVELAMER CARBONATE 800 MG POWD.PACK PO SCH ×3 (08:00→17:59)
[2022-10-29] MEDS: INSULIN REGULAR, HUMAN 300 UNIT/3 ML VIAL SQ PRN ×3 (08:55→18:00)
[2022-10-29] MEDS: MUPIROCIN 2% OINT 22 GM TUBE NS SCH ×2 (08:59→21:14)
[2022-10-29] MEDS: ASPIRIN 81 MG TAB.CHEW PO SCH (09:00)
[2022-10-29] MEDS: DOCUSATE SODIUM 100 MG CAPSULE PO SCH ×2 (09:00→17:00)
[2022-10-29] MEDS: METOPROLOL TARTRATE 50 MG TABLET PO SCH ×2 (09:00→21:00)
[2022-10-29] MEDS: SENNOSIDES 1 TABLET PO SCH ×2 (09:00→17:00)
[2022-10-29] MEDS: GABAPENTIN 100 MG CAPSULE PO SCH ×2 (09:00→21:00)
[2022-10-29] MEDS: FOLIC ACID/VITAMIN B COMP W-C TABLET PO SCH (09:00)
[2022-10-29] MEDS: MEROPENEM 500 MG in IV NORMAL SALINE 50 ML IV SCH ×2 (09:03→21:14)
[2022-10-29] MEDS: MEDIHONEY= THERAHONEY 1.5 OZ TUBE TOP SCH (10:44)
[2022-10-29] MEDS: REMEDY ESSENTIAL ZINC PASTE 113 GM TOP SCH ×2 (10:45→21:10)
[2022-10-29 12:15] VITALS: BP 112/40
[2022-10-29] MEDS: MICAFUNGIN SODIUM 100 MG in IV NORMAL SALINE 100 ML IV SCH (16:11)
[2022-10-29 16:12] VITALS: BP 126/39
--- NOTE | 2022-10-29 20:30 | NUR ---
WITH ADULT LITERACY TEACHER HELP TURNED AND REPOSITION PATIENT OFFLOADED BACK WITH PILLOW BUE AND BLE ELEVATED WITH PILLOWS HEELS OFF THE BED .
[2022-10-29 20:51] VITALS: BP 108/42
[2022-10-29] MEDS: ESCITALOPRAM OXALATE 10 MG TABLET PO SCH (21:00)
[2022-10-29] MEDS: ATORVASTATIN 40 MG TABLET PO SCH (21:00)
[2022-10-30] VITALS (11 sets, daily range): BP systolic 72–123; BP diastolic 18–48
[2022-10-30] MEDS: BLOOD SUGAR DIAGNOSTIC 1 EACH STRIP VI SCH ×5 (01:01→23:32)
--- NOTE | 2022-10-30 04:20 | NUR ---
FROM SR PATIENT WENT TO AFIB RATE 120 TO 130 STARTED PATIENT ON AMIODARONE DRIP PER DR: SABRINA NOTES IF PATIENT GOES BACK TO AFIB -AFLUTTER TO START AMIODARONE DRIP TO FOLLOW PROTOCOL .
[2022-10-30] MEDS: MORPHINE SULFATE 2 MG/1 ML DISP.SYRIN IV PRN ×2 (04:23→09:10)
--- NOTE | 2022-10-30 04:23 | NUR ---
GIVEN MORPHINE PRN PATIENT MOANING AND AT TIMES SCREAMING C/O PAIN TO HER LEGS.
[2022-10-30] MEDS ORDERED: AMIODARONE HCL 150 MG/3 ML VIAL IV ONE (04:43)
[2022-10-30] MEDS: AMIODARONE HCL IV 450 MG in IV DEXTROSE 5% 250 ML IV PRN ×2 (05:07→12:14)
--- NOTE | 2022-10-30 06:30 | NUR ---
AM CARE DONE CHANGED SOILED LINENS AND GOWN ORAL CARE DONE , TURNED AND REPOSITION PATIENT .
[2022-10-30] MEDS: PANTOPRAZOLE SODIUM 40 MG TABLET.DR PO SCH (07:28)
[2022-10-30] MEDS: SEVELAMER CARBONATE 800 MG POWD.PACK PO SCH ×3 (08:00→17:52)
[2022-10-30] MEDS: MEROPENEM 500 MG in IV NORMAL SALINE 50 ML IV SCH ×2 (08:58→20:24)
[2022-10-30] MEDS: METOPROLOL TARTRATE 50 MG TABLET PO SCH ×2 (08:59→21:00)
[2022-10-30] MEDS: SENNOSIDES 1 TABLET PO SCH ×2 (08:59→17:00)
[2022-10-30] MEDS: DOCUSATE SODIUM 100 MG CAPSULE PO SCH ×2 (08:59→17:00)
[2022-10-30] MEDS: FOLIC ACID/VITAMIN B COMP W-C TABLET PO SCH (08:59)
[2022-10-30] MEDS: GABAPENTIN 100 MG CAPSULE PO SCH ×2 (09:00→21:00)
[2022-10-30] MEDS: REMEDY ESSENTIAL ZINC PASTE 113 GM TOP SCH ×2 (09:01→21:13)
[2022-10-30] MEDS: MEDIHONEY= THERAHONEY 1.5 OZ TUBE TOP SCH (09:01)
[2022-10-30] MEDS: MUPIROCIN 2% OINT 22 GM TUBE NS SCH ×2 (09:02→20:24)
[2022-10-30] MEDS: ASPIRIN 81 MG TAB.CHEW PO SCH (09:03)
[2022-10-30] MEDS: INSULIN REGULAR, HUMAN 300 UNIT/3 ML VIAL SQ PRN ×3 (12:25→23:31)
[2022-10-30 12:30] LABS: HEMATOCRIT 32.8 % (31.2-41.9); MEAN CORPUSCULAR HEMOGLOBIN 31.3 uug (24.7-32.8); MEAN CORPUSCULAR VOLUME 102.4 fL (75.5-95.3); PLATELET COUNT (AUTO) 67 K/uL (179-408)
[2022-10-30 12:35] LABS: ALANINE AMINOTRANSFERASE 12 U/L (14-59); ALKALINE PHOSPHATASE 121 U/L (50-136); ASPARTATE AMINOTRANSFERASE 24 U/L (15-37); BILIRUBIN,TOTAL 0.5 mg/dL (0.2-1.0); CARBON DIOXIDE 20 mmol/L (21-32); CHLORIDE 104 mmol/L (98-107); CREATININE 6.5 mg/dL (0.6-1.3); GLUCOSE 312 mg/dL (74-106); MAGNESIUM 2.3 mg/dL (1.8-2.4); PHOSPHOROUS 4.2 mg/dL (2.5-4.9); POTASSIUM 4.8 mmol/L (3.5-5.1); UREA NITROGEN, BLOOD 75 mg/dL (7-18)
[2022-10-30] MEDS: PROTEIN SUPPLEMENT (PROSTAT) 30 ML LIQUID PO SCH ×2 (13:00→17:00)
[2022-10-30] MEDS: HYDROCODONE/APAP 5-325MG TABLET PO PRN (14:56)
[2022-10-30] MEDS: MICAFUNGIN SODIUM 100 MG in IV NORMAL SALINE 100 ML IV SCH (14:59)
--- NOTE | 2022-10-30 19:49 | NUR ---
CALLED EPIC C/O PATIENT BP 72/17 [address] PENA RESPONDED WITH ORDER FOR NORMAL SALINE 500 ML BOLUS X1.
[2022-10-30] MEDS ORDERED: IV NORMAL SALINE 500 ML IV ONE (20:00)
--- NOTE | 2022-10-30 20:03 | NUR ---
DR: SRIKANTH CAME SAW AND EXAMINED PATIENT AT B/S MD AWARE ABOUT PATIENTS VITAL SIGNS BP 74/26 HR 40 WITH ORDERS TO GIVE BOLUS OF NORMAL SALINE 500 ML .PATIENT OPEN EYES TO NAM VERBALLY RESPONSIVE .
--- NOTE | 2022-10-30 20:20 | NUR ---
CALLED DR: SRIKANTH NOTIFIED MD C/O V/S BP 78/26 HR 40 THIS IS AFTER BOLUS OF 500 ML NORMAL SALINE WITH ORDERS TO TRANSFER PATIENT TO CCU AND TO START LEVOPHED DRIP .
[2022-10-30] MEDS: ATORVASTATIN 40 MG TABLET PO SCH (21:00)
[2022-10-30] MEDS: ESCITALOPRAM OXALATE 10 MG TABLET PO SCH (21:00)
--- NOTE | 2022-10-30 22:12 | NUR ---
tx to ccu by bed with nurse,report given to ani whitney
[2022-10-30] MEDS ORDERED: NOREPINEPHRINE BITARTRATE 4 MG/4 ML VIAL IV ONE (22:18)
--- NOTE | 2022-10-30 22:31 | NUR ---
pt arrived from 3rd floor to the icu. BP low 78/36, hr 41. levophed drip started.
[2022-10-31] VITALS (24 sets, daily range): BP systolic 104–152; BP diastolic 34–48
[2022-10-31] MEDS: BLOOD SUGAR DIAGNOSTIC 1 EACH STRIP VI SCH ×4 (06:25→23:35)
[2022-10-31] MEDS: INSULIN REGULAR, HUMAN 300 UNIT/3 ML VIAL SQ PRN ×4 (06:45→23:48)
[2022-10-31] MEDS: PANTOPRAZOLE SODIUM 40 MG TABLET.DR PO SCH (06:46)
[2022-10-31] MEDS: SEVELAMER CARBONATE 800 MG POWD.PACK PO SCH ×4 (08:00→17:29)
[2022-10-31] MEDS: DOCUSATE SODIUM 100 MG CAPSULE PO SCH ×3 (08:41→16:39)
[2022-10-31] MEDS: ASPIRIN 81 MG TAB.CHEW PO SCH (08:41)
[2022-10-31] MEDS: FOLIC ACID/VITAMIN B COMP W-C TABLET PO SCH ×2 (08:41→09:00)
[2022-10-31] MEDS: GABAPENTIN 100 MG CAPSULE PO SCH ×3 (08:41→20:39)
[2022-10-31] MEDS: SENNOSIDES 1 TABLET PO SCH ×3 (08:41→16:39)
[2022-10-31] MEDS: MEROPENEM 500 MG in IV NORMAL SALINE 50 ML IV SCH ×2 (08:55→20:39)
[2022-10-31] MEDS: PROTEIN SUPPLEMENT (PROSTAT) 30 ML LIQUID PO SCH ×3 (08:58→16:39)
[2022-10-31] MEDS: MUPIROCIN 2% OINT 22 GM TUBE NS SCH (08:58)
[2022-10-31] MEDS: METOPROLOL TARTRATE 50 MG TABLET PO SCH ×2 (09:00→20:11)
[2022-10-31] MEDS: MEDIHONEY= THERAHONEY 1.5 OZ TUBE TOP SCH (09:09)
[2022-10-31] MEDS: REMEDY ESSENTIAL ZINC PASTE 113 GM TOP SCH ×2 (09:09→20:44)
[2022-10-31] MEDS: NOREPINEPHRINE BITARTRATE 8 MG in IV NORMAL SALINE 242 ML IV PRN (11:14)
[2022-10-31 11:57] LABS: HEMATOCRIT 36.3 % (31.2-41.9); MEAN CORPUSCULAR HEMOGLOBIN 31.5 uug (24.7-32.8); MEAN CORPUSCULAR VOLUME 103.9 fL (75.5-95.3); PLATELET COUNT (AUTO) 111 K/uL (179-408)
[2022-10-31 12:09] LABS: ALANINE AMINOTRANSFERASE 8 U/L (14-59); ALKALINE PHOSPHATASE 138 U/L (50-136); ASPARTATE AMINOTRANSFERASE 21 U/L (15-37); BILIRUBIN,TOTAL 0.6 mg/dL (0.2-1.0); CARBON DIOXIDE 19 mmol/L (21-32); CHLORIDE 102 mmol/L (98-107); CREATININE 7.2 mg/dL (0.6-1.3); MAGNESIUM 2.4 mg/dL (1.8-2.4); PHOSPHOROUS 5.7 mg/dL (2.5-4.9); POTASSIUM 5.4 mmol/L (3.5-5.1); TOTAL PROTEIN, SERUM 7.2 g/dL (6.4-8.2)
[2022-10-31 12:12] LABS: GLUCOSE 313 mg/dL (74-106)
[2022-10-31 12:13] LABS: UREA NITROGEN, BLOOD 88 mg/dL (7-18)
[2022-10-31] MEDS: HYDROCORTISONE SOD SUCCINATE 100 MG/2 ML VIAL IV SCH ×2 (14:39→21:12)
[2022-10-31] MEDS: MICAFUNGIN SODIUM 100 MG in IV NORMAL SALINE 100 ML IV SCH (14:41)
[2022-10-31] MEDS: ESCITALOPRAM OXALATE 10 MG TABLET PO SCH (20:40)
[2022-10-31] MEDS: ATORVASTATIN 40 MG TABLET PO SCH (20:40)
[2022-10-31] MEDS: HEPARIN SODIUM,PORCINE 5,000 UNITS/ML VIAL SQ SCH (20:43)
[2022-10-31] MEDS: MORPHINE SULFATE 2 MG/1 ML DISP.SYRIN IV PRN (21:08)
[2022-11-01] VITALS (42 sets, daily range): BP systolic 84–156; BP diastolic 37–58
[2022-11-01] MEDS: BLOOD SUGAR DIAGNOSTIC 1 EACH STRIP VI SCH ×4 (06:01→23:18)
[2022-11-01] MEDS: HYDROCORTISONE SOD SUCCINATE 100 MG/2 ML VIAL IV SCH ×3 (06:05→23:11)
[2022-11-01] MEDS: PANTOPRAZOLE SODIUM 40 MG TABLET.DR PO SCH (06:05)
[2022-11-01] MEDS: INSULIN REGULAR, HUMAN 300 UNIT/3 ML VIAL SQ PRN ×4 (06:09→23:23)
--- NOTE | 2022-11-01 08:00 | NUR ---
Patient rec'd in bed asleep, aroused with mild pain . Lethargic staring at the wall left gaze no response moves right arm no movement noted on left. repositioned. Pt unable to swallow. Swallow eval done by speech therapist. Pt failed. Now NPO.
--- NOTE | 2022-11-01 08:17 | NUR ---
Patient had a restful night, breathing easy and unlabored on 3 L nasal canula. Remains on Levophed drip, which has been weaned down to 1mcg, BS remains high, 0600 234, patient covered with 4 units. Patient was moaning in pain, she was given morphine 2mg IV with good relief noted.
[2022-11-01] MEDS: SEVELAMER CARBONATE 800 MG POWD.PACK PO SCH ×3 (08:36→18:00)
[2022-11-01] MEDS: HEPARIN SODIUM,PORCINE 5,000 UNITS/ML VIAL SQ SCH ×2 (09:00→20:45)
[2022-11-01] MEDS: DOCUSATE SODIUM 100 MG CAPSULE PO SCH ×3 (09:00→17:00)
[2022-11-01] MEDS: METOPROLOL TARTRATE 50 MG TABLET PO SCH (09:00)
[2022-11-01] MEDS: PROTEIN SUPPLEMENT (PROSTAT) 30 ML LIQUID PO SCH ×3 (09:00→17:00)
[2022-11-01 09:26] LABS: HEMATOCRIT 34.7 % (31.2-41.9); MEAN CORPUSCULAR HEMOGLOBIN 31.5 uug (24.7-32.8); MEAN CORPUSCULAR VOLUME 103.7 fL (75.5-95.3); PLATELET COUNT (AUTO) 99 K/uL (179-408)
[2022-11-01 09:38] LABS: ALANINE AMINOTRANSFERASE < 6 U/L (14-59); ALKALINE PHOSPHATASE 123 U/L (50-136); ASPARTATE AMINOTRANSFERASE 8 U/L (15-37); BILIRUBIN,TOTAL 0.5 mg/dL (0.2-1.0); CARBON DIOXIDE 17 mmol/L (21-32); CHLORIDE 102 mmol/L (98-107); GLUCOSE 266 mg/dL (74-106); MAGNESIUM 2.5 mg/dL (1.8-2.4)
[2022-11-01] MEDS: MEROPENEM 500 MG in IV NORMAL SALINE 50 ML IV SCH ×2 (09:38→19:55)
[2022-11-01] MEDS: GABAPENTIN 100 MG CAPSULE PO SCH (09:41)
[2022-11-01] MEDS: ASPIRIN 81 MG TAB.CHEW PO SCH (09:41)
[2022-11-01] MEDS: FOLIC ACID/VITAMIN B COMP W-C TABLET PO SCH (09:41)
[2022-11-01] MEDS: SENNOSIDES 1 TABLET PO SCH ×2 (09:41→17:00)
[2022-11-01 09:42] LABS: UREA NITROGEN, BLOOD 98 mg/dL (7-18)
[2022-11-01 09:43] LABS: CREATININE 7.9 mg/dL (0.6-1.3)
[2022-11-01] MEDS: REMEDY ESSENTIAL ZINC PASTE 113 GM TOP SCH ×2 (09:46→20:44)
[2022-11-01] MEDS: MEDIHONEY= THERAHONEY 1.5 OZ TUBE TOP SCH (09:46)
[2022-11-01 10:00] LABS: LYMPHOCYTES % (MANUAL) 10 % (20-40); MONOCYTES % (MANUAL) 2 % (2-10); NEUTROPHILS % (MANUAL) 88 % (42-75)
[2022-11-01] MEDS ORDERED: SODIUM BICARBONATE 8.4% 100 MEQ in IV D5W 1000ML 1,000 ML IV ONE (10:00)
[2022-11-01] MEDS ORDERED: DEXTROSE 50% 50 ML DISP.SYRIN IV ONE (10:00)
[2022-11-01] MEDS ORDERED: INSULIN REGULAR, HUMAN 300 UNIT/3 ML VIAL IV ONE (10:00)
[2022-11-01] MEDS: MICAFUNGIN SODIUM 100 MG in IV NORMAL SALINE 100 ML IV SCH (15:58)
[2022-11-01] MEDS: MORPHINE SULFATE 2 MG/1 ML DISP.SYRIN IV PRN (17:06)
--- NOTE | 2022-11-01 19:09 | NUR ---
Pt seen by Attending Neurology, ID, Nephrology, Cardiology. Kevin FOOD SAFETY MANAGER attempted to insert Dialysis catheterwithout success stated he will have someone else Place catheter. Dialysis Nurse aware that catheter not yet inserted. Family at bedside today. Kevin updated Family. Pt failed swallow eval.Off levo since 1000 maintain bp. no bm.
[2022-11-01] MEDS: NOREPINEPHRINE BITARTRATE 8 MG in IV NORMAL SALINE 242 ML IV PRN (19:54)
[2022-11-01] MEDS: ESCITALOPRAM OXALATE 10 MG TABLET PO SCH (20:44)
[2022-11-01] MEDS: ATORVASTATIN 40 MG TABLET PO SCH (20:44)
[2022-11-02] VITALS (30 sets, daily range): BP systolic 106–195; BP diastolic 39–77
--- NOTE | 2022-11-02 04:27 | NUR ---
Received the patient tachypneic , and stating in the 50's, I informed respiratory and they placed the patient on a nonrebreather, then a simple mask. Currently the patient is breathing easy and unlabored on simple mask @ 8L, B/P was 59/42, so Levophed was resumed. Current B/P 109/42(71). Dialysis nurse Fermin would like to be called when a new access for dialysis is being placed, his number is the following [phone].
[2022-11-02] MEDS: BLOOD SUGAR DIAGNOSTIC 1 EACH STRIP VI SCH ×3 (04:55→17:56)
[2022-11-02] MEDS: HYDROCORTISONE SOD SUCCINATE 100 MG/2 ML VIAL IV SCH ×3 (05:00→23:53)
[2022-11-02 05:04] LABS: HEMATOCRIT 31.9 % (31.2-41.9); MEAN CORPUSCULAR HEMOGLOBIN 30.8 uug (24.7-32.8); MEAN CORPUSCULAR VOLUME 102.8 fL (75.5-95.3); PLATELET COUNT (AUTO) 84 K/uL (179-408)
[2022-11-02] MEDS: INSULIN REGULAR, HUMAN 300 UNIT/3 ML VIAL SQ PRN ×3 (05:04→17:48)
[2022-11-02 05:10] LABS: CARBON DIOXIDE 22 mmol/L (21-32); CHLORIDE 98 mmol/L (98-107); MAGNESIUM 2.4 mg/dL (1.8-2.4)
[2022-11-02 05:16] LABS: CREATININE 8.4 mg/dL (0.6-1.3); GLUCOSE 367 mg/dL (74-106); UREA NITROGEN, BLOOD 109 mg/dL (7-18)
[2022-11-02 05:18] LABS: BAND % (MANUAL) 5 % (0-10); LYMPHOCYTES % (MANUAL) 5 % (20-40); MONOCYTES % (MANUAL) 2 % (2-10); NEUTROPHILS % (MANUAL) 88 % (42-75)
[2022-11-02] MEDS: PANTOPRAZOLE SODIUM 40 MG TABLET.DR PO SCH (06:07)
--- NOTE | 2022-11-02 07:30 | NUR ---
report received intial pt contat and assessmebt noted. pt lying in bed eyes opoen no commands followed only moans with positiin change and physcial assessment. [facility] [place] [facility] awaiting [id number] placement when alloted by md.number left with previous rn win documentzation.
[2022-11-02] MEDS: SEVELAMER CARBONATE 800 MG POWD.PACK PO SCH ×3 (08:00→17:34)
[2022-11-02] MEDS: FOLIC ACID/VITAMIN B COMP W-C TABLET PO SCH (08:54)
[2022-11-02] MEDS: DOCUSATE SODIUM 100 MG CAPSULE PO SCH ×2 (08:54→17:55)
[2022-11-02] MEDS: SENNOSIDES 1 TABLET PO SCH ×2 (08:54→17:56)
[2022-11-02] MEDS: PROTEIN SUPPLEMENT (PROSTAT) 30 ML LIQUID PO SCH ×2 (08:54→17:56)
[2022-11-02] MEDS: ASPIRIN 81 MG TAB.CHEW PO SCH (08:54)
--- NOTE | 2022-11-02 08:56 | NUR ---
cardio dr bronson at the bedside assesing the pt. aware of pts npo. pt sinus rythm with peaked t wave currently. informed ani cantu that stock or delivery clerk contacted in him in regards to dialysis access placement. will continue to monitor
[2022-11-02] MEDS: MEROPENEM 500 MG in IV NORMAL SALINE 50 ML IV SCH ×2 (08:58→21:00)
[2022-11-02] MEDS: HEPARIN SODIUM,PORCINE 5,000 UNITS/ML VIAL SQ SCH (09:00)
--- NOTE | 2022-11-02 09:21 | NUR ---
platelet count 84,000 heparin held per ani blair due to platlet count less than 100.000 will inform md. no ss of bleeding pt awaiting dialysis cath placement
[2022-11-02] MEDS: MEDIHONEY= THERAHONEY 1.5 OZ TUBE TOP SCH (09:23)
[2022-11-02] MEDS: REMEDY ESSENTIAL ZINC PASTE 113 GM TOP SCH ×2 (09:24→21:00)
--- NOTE | 2022-11-02 09:26 | NUR ---
pt hemodynamic stabilty wnl. levophed decreased to 2mcg will continue to mohnitor
[2022-11-02] MEDS ORDERED: SODIUM POLYSTYRENE SULFONATE 15 G/60 ML LIQUID UDC PO ONE (09:45)
--- NOTE | 2022-11-02 10:08 | NUR ---
inge with speech path at bedside assessing for swallowing. pt with delayed swallow.. plans to insert ngt for med administration in prodess
[2022-11-02] MEDS ORDERED: DEXTROSE 50% 50 ML DISP.SYRIN IV PRN (10:15)
--- NOTE | 2022-11-02 10:37 | NUR ---
rt nare ngt placed and confirmed by 2 rns with 30ml air bolus and chest xr.
[2022-11-02] MEDS ORDERED: SODIUM POLYSTYRENE SULFONATE 15 G/60 ML LIQUID UDC ONE (10:46)
--- NOTE | 2022-11-02 10:52 | NUR ---
sukumar dialyssi rn called tp check if access for dialyssi is placed. dental intern to be called at [phone] once access est.
--- NOTE | 2022-11-02 10:54 | NUR ---
consent for dialysis placement in the chart. consent obtained on 11/01/2022 by and pts sister sammy
--- NOTE | 2022-11-02 11:13 | NUR ---
repiratory therapist valeria notified by alondra law that pt is in er overlow
--- NOTE | 2022-11-02 11:31 | NUR ---
pts primat at the bedside. informed of the need for breathing treastments and deep bryan=ction by rt. informed alondra law that the dialysis cath will be performed at 1400 pm today
--- NOTE | 2022-11-02 11:37 | NUR ---
primary md and nephrology informed of the pts wbc of 57.7 and pt has plans for dialyssi catheter access today at 1400 awaiting response
--- NOTE | 2022-11-02 11:39 | NUR ---
neurology rn [facility] mariluz law at the bedside assessing the pt
--- NOTE | 2022-11-02 11:45 | NUR ---
primary md [id number] of pts bg 278 and the ordered written for lantus 10/30/22 never acknowledged or sliding scale for treatment. md informed woffored rn to acknowledge the orders and implement
[2022-11-02] MEDS ORDERED: IPRATROPIUM BROMIDE 0.5 MG/2.5 ML NEBU NEB PRN (12:15)
[2022-11-02] MEDS ORDERED: INSULIN GLARGINE,HUM 300 UNITS/3 ML CARTRIDGE SQ ONE (13:19)
--- NOTE | 2022-11-02 13:25 | NUR ---
per fermín embossing tool setter pt to not receive lantus while npo just sliding scale
--- NOTE | 2022-11-02 13:26 | NUR ---
pt family requesting md to update
--- NOTE | 2022-11-02 13:33 | NUR ---
pt family given the bottom dentures to niece vianca pts top dentured remain in her mouth
[2022-11-02] MEDS ORDERED: LIDOCAINE HCL 1% 20 ML VIAL ONE ×2 (14:05→14:06)
[2022-11-02] MEDS ORDERED: HEPARIN SODIUM,PORCINE/PF 100 UNIT/ML, 5ML SYR ONE (14:12)
[2022-11-02] MEDS: MICAFUNGIN SODIUM 100 MG in IV NORMAL SALINE 100 ML IV SCH (15:40)
--- NOTE | 2022-11-02 15:44 | NUR ---
1545- dr plummer atthe bside to perform dialysis cath. pt procedure explained. timeout performed prior to procedure. timeout form completeed. dr plummer placeda rt femoral permacth. stated its ready fir usage. diaysis ani patino called at [phone] immediately afterwards
[2022-11-02] MEDS ORDERED: HYDROCORTISONE SOD SUCCINATE 100 MG/2 ML VIAL IV ONE (15:52)
--- NOTE | 2022-11-02 17:31 | NUR ---
1700 pt bending rt leg pt attempted to repostion. rt groin dialysis catheter oozing blood. clott formed at the ientry site dr veronica notified. dressing removed clot in pkace surgi seal olaced tergraderm reapplied. pt lower ext with pulse and warm to touch. will monitor
--- NOTE | 2022-11-02 17:40 | NUR ---
pt able to lift rt upper ext in attempt to remove ngt a soft mitten placed to right hand carlos test performed and wnl
[2022-11-02] MEDS ORDERED: DOCUSATE SODIUM 100 MG CAPSULE PO ONE (17:55)
--- NOTE | 2022-11-02 17:58 | NUR ---
[facility]
--- NOTE | 2022-11-02 18:20 | NUR ---
although makayla statin placed pts femoral cath evy law blood dr woo informed nurse to place a sanbag and have pm shift follow up with him if it continues
--- NOTE | 2022-11-02 18:57 | NUR ---
report given to the rn dialysis and oncoming nursw
--- NOTE | 2022-11-02 19:34 | NUR ---
catheter site still bleeding. was ordered by dr to wrap the site with gauze and apply weight on top to sotp the bleeding. dialysis still in progress.
[2022-11-02] MEDS: NOREPINEPHRINE BITARTRATE 8 MG in IV NORMAL SALINE 242 ML IV PRN (19:41)
[2022-11-02] MEDS: ATORVASTATIN 40 MG TABLET PO SCH (21:00)
[2022-11-02] MEDS: hydrALAZINE HCL 10 MG TABLET PO PRN (23:53)
[2022-11-02] MEDS: ESCITALOPRAM OXALATE 10 MG TABLET PO SCH (23:54)
[2022-11-03] VITALS (19 sets, daily range): BP systolic 65–195; BP diastolic 34–76
[2022-11-03] MEDS: HEPARIN SODIUM,PORCINE 5,000 UNITS/ML VIAL SQ SCH ×2 (00:12→09:00)
[2022-11-03] MEDS: INSULIN REGULAR, HUMAN 300 UNIT/3 ML VIAL SQ PRN ×4 (00:35→17:33)
[2022-11-03] MEDS: BLOOD SUGAR DIAGNOSTIC 1 EACH STRIP VI SCH ×4 (00:35→17:18)
--- NOTE | 2022-11-03 02:23 | NUR ---
pt's bp has been consistent;y elevated despite receiving hydralazine 10mg prn. Called applications architect tonight and received order for another 10mg iv hydralazine.
[2022-11-03] MEDS ORDERED: hydrALAZINE HCL 20 MG/1 ML VIAL IV ONE (02:30)
[2022-11-03] MEDS ORDERED: HYDROCORTISONE SOD SUCCINATE 100 MG/2 ML VIAL IV ONE ×2 (05:13→13:38)
[2022-11-03] MEDS ORDERED: hydrALAZINE HCL 10 MG TABLET ONE (05:13)
[2022-11-03] MEDS ORDERED: PANTOPRAZOLE SODIUM 40 MG TABLET.DR PO ONE (05:13)
[2022-11-03] MEDS: HYDROCORTISONE SOD SUCCINATE 100 MG/2 ML VIAL IV SCH ×3 (06:01→21:48)
[2022-11-03] MEDS: hydrALAZINE HCL 10 MG TABLET PO PRN (06:01)
[2022-11-03] MEDS: PANTOPRAZOLE SODIUM 40 MG TABLET.DR PO SCH (06:01)
[2022-11-03] MEDS ORDERED: MORPHINE SULFATE 2 MG/1 ML DISP.SYRIN ONE (06:25)
[2022-11-03] MEDS: MORPHINE SULFATE 2 MG/1 ML DISP.SYRIN IV PRN (06:26)
[2022-11-03 07:13] LABS: HEMATOCRIT 27.2 % (31.2-41.9); MEAN CORPUSCULAR HEMOGLOBIN 31.4 uug (24.7-32.8); MEAN CORPUSCULAR VOLUME 99.4 fL (75.5-95.3); PLATELET COUNT (AUTO) 71 K/uL (179-408)
[2022-11-03 07:32] LABS: ALANINE AMINOTRANSFERASE 9 U/L (14-59); ALKALINE PHOSPHATASE 120 U/L (50-136); ASPARTATE AMINOTRANSFERASE 19 U/L (15-37); BILIRUBIN,TOTAL 0.8 mg/dL (0.2-1.0); CARBON DIOXIDE 23 mmol/L (21-32); CHLORIDE 97 mmol/L (98-107); CREATININE 5.7 mg/dL (0.6-1.3); TOTAL PROTEIN, SERUM 6.5 g/dL (6.4-8.2); UREA NITROGEN, BLOOD 72 mg/dL (7-18)
[2022-11-03 07:36] LABS: GLUCOSE 316 mg/dL (74-106)
[2022-11-03] MEDS: SEVELAMER CARBONATE 800 MG POWD.PACK PO SCH ×3 (07:45→17:44)
--- NOTE | 2022-11-03 08:00 | NUR ---
0800 Right groin bleeding around dialysis catheter site dressing changed soaked 2 ABD's and clot material removed from site. Dr. Chao aware of bleeding. Ordered to hold heaprin and ASA. new dressing applied and 10lb sandbag to site.
[2022-11-03] MEDS ORDERED: ASPIRIN 81 MG TAB.CHEW ONE (08:39)
[2022-11-03] MEDS: ASPIRIN 81 MG TAB.CHEW PO SCH (09:00)
[2022-11-03] MEDS ORDERED: DOCUSATE SODIUM 100 MG CAPSULE PO ONE (09:04)
[2022-11-03] MEDS: DOCUSATE SODIUM 100 MG CAPSULE PO SCH ×2 (09:10→16:53)
[2022-11-03] MEDS: MEROPENEM 500 MG in IV NORMAL SALINE 50 ML IV SCH ×2 (09:13→21:47)
[2022-11-03] MEDS: SENNOSIDES 1 TABLET PO SCH ×2 (09:14→16:54)
[2022-11-03] MEDS: FOLIC ACID/VITAMIN B COMP W-C TABLET PO SCH (09:15)
[2022-11-03] MEDS: PROTEIN SUPPLEMENT (PROSTAT) 30 ML LIQUID PO SCH ×2 (09:15→16:56)
[2022-11-03 09:16] LABS: BAND % (MANUAL) 0 % (0-10); BASOPHILS % (MANUAL) 0 % (0-2); EOSINOPHILS % (MANUAL) 0 % (0-8); LYMPHOCYTES % (MANUAL) 4 % (20-40); MONOCYTES % (MANUAL) 2 % (2-10); NEUTROPHILS % (MANUAL) 94 % (42-75)
[2022-11-03] MEDS: MEDIHONEY= THERAHONEY 1.5 OZ TUBE TOP SCH (09:16)
[2022-11-03] MEDS: REMEDY ESSENTIAL ZINC PASTE 113 GM TOP SCH ×2 (09:16→21:48)
[2022-11-03 09:17] LABS: REACTIVE LYMPHOCYTES 0 % (0-0)
[2022-11-03] MEDS: NEPRO (VANILLA) 237 ML CAN PO SCH ×2 (13:00→16:54)
[2022-11-03] MEDS: NOREPINEPHRINE BITARTRATE 8 MG in IV NORMAL SALINE 242 ML IV PRN (13:52)
[2022-11-03] MEDS: MICAFUNGIN SODIUM 100 MG in IV NORMAL SALINE 100 ML IV SCH (15:52)
--- NOTE | 2022-11-03 16:30 | NUR ---
Pt transferred to Room 311 KARYN. Awake, VSS, R groin dressing dry and intact changed post-dialysis. see full assessment.
[2022-11-03] MEDS: ESCITALOPRAM OXALATE 10 MG TABLET PO SCH (21:48)
[2022-11-03] MEDS: ATORVASTATIN 40 MG TABLET PO SCH (21:48)
[2022-11-03] MEDS: HYDROCODONE/APAP 5-325MG TABLET PO PRN (22:28)
--- NOTE | 2022-11-03 23:00 | NUR ---
Patient c/o left hand pain on peripheral IV site. Site is noted to be swelling and painful to the touch. IV line was removed, extremity elevated, Kellie WEB METHODS DEVELOPER notified received new order for venous doppler of the extremity. Order carried out.
[2022-11-04] VITALS (13 sets, daily range): BP systolic 119–167; BP diastolic 36–62
[2022-11-04] MEDS: BLOOD SUGAR DIAGNOSTIC 1 EACH STRIP VI SCH ×7 (00:12→21:39)
--- NOTE | 2022-11-04 00:40 | NUR ---
Patient is NPO with a blood sugar reading of 335mg/dl. BRANDON Escamilla made aware order received to hold insulin coverage for now.
[2022-11-04] MEDS: INSULIN REGULAR, HUMAN 300 UNIT/3 ML VIAL SQ PRN ×4 (00:54→16:49)
[2022-11-04] MEDS: HYDROCORTISONE SOD SUCCINATE 100 MG/2 ML VIAL IV SCH ×2 (06:56→17:42)
[2022-11-04] MEDS: PANTOPRAZOLE SODIUM 40 MG TABLET.DR PO SCH (06:57)
--- NOTE | 2022-11-04 07:30 | NUR ---
AWAKE ALERT BUT CONFUSED X3, NO SIGNS OF RESP DISTRESS ON 3L NC SATURATING 97% SR/SB ON MONITOR 59-66/MIN
--- NOTE | 2022-11-04 07:40 | NUR ---
Patient blood sugar reading this morning is 406mg/dl. On prednisone every 8 hours. patient was covered as per sliding scale. Order in for lab draw. Will recheck blood sugar within one hour.
[2022-11-04] MEDS: DOCUSATE SODIUM 100 MG CAPSULE PO SCH ×2 (08:12→17:00)
[2022-11-04] MEDS: SENNOSIDES 1 TABLET PO SCH ×2 (08:12→17:42)
[2022-11-04] MEDS: FOLIC ACID/VITAMIN B COMP W-C TABLET PO SCH (08:13)
[2022-11-04] MEDS: HYDROCODONE/APAP 5-325MG TABLET PO PRN (08:13)
[2022-11-04] MEDS: SEVELAMER CARBONATE 800 MG POWD.PACK PO SCH ×3 (08:14→17:42)
[2022-11-04] MEDS: PROTEIN SUPPLEMENT (PROSTAT) 30 ML LIQUID PO SCH ×2 (08:15→17:43)
[2022-11-04] MEDS: NEPRO (VANILLA) 237 ML CAN PO SCH ×3 (08:15→17:43)
[2022-11-04] MEDS: MEDIHONEY= THERAHONEY 1.5 OZ TUBE TOP SCH (08:15)
[2022-11-04] MEDS: REMEDY ESSENTIAL ZINC PASTE 113 GM TOP SCH ×2 (08:16→21:26)
[2022-11-04 08:25] LABS: ALANINE AMINOTRANSFERASE < 6 U/L (14-59); ALKALINE PHOSPHATASE 129 U/L (50-136); ASPARTATE AMINOTRANSFERASE 15 U/L (15-37); CARBON DIOXIDE 22 mmol/L (21-32); CHLORIDE 96 mmol/L (98-107); CREATININE 4.3 mg/dL (0.6-1.3); POTASSIUM 4.7 mmol/L (3.5-5.1); TOTAL PROTEIN, SERUM 5.9 g/dL (6.4-8.2); UREA NITROGEN, BLOOD 59 mg/dL (7-18)
[2022-11-04 08:48] LABS: GLUCOSE 450 mg/dL (74-106)
[2022-11-04] MEDS ORDERED: INSULIN GLARGINE,HUM 300 UNITS/3 ML CARTRIDGE SQ SCH (09:00)
[2022-11-04] MEDS: MEROPENEM 500 MG in IV NORMAL SALINE 50 ML IV SCH ×2 (09:21→21:26)
[2022-11-04] MEDS ORDERED: INSULIN REGULAR, HUMAN 300 UNITS/3 ML VIAL SQ PRN (10:15)
[2022-11-04] MEDS ORDERED: DEXTROSE 50% 50 ML DISP.SYRIN IV PRN (10:15)
--- NOTE | 2022-11-04 10:32 | NUR ---
DR ALVERTO CORNELIUS SO WITH DR COOPER NOTIFIED OF BLEEDING OVER HD CATH SITE STAT WBC PT/PTT DONE. RESULTS RELAYED TO DR COOPER.
[2022-11-04 10:41] LABS: MEAN CORPUSCULAR HEMOGLOBIN 31.3 uug (24.7-32.8); PLATELET COUNT (AUTO) 61 K/uL (179-408)
[2022-11-04 10:47] LABS: HEMATOCRIT 19.1 % (31.2-41.9)
--- NOTE | 2022-11-04 10:50 | NUR ---
DR COOPER MADE AWARE OF LOW HH WITH ORDER TO TRANSFUSE 2 UNITS PRBC ALSO AGREED BY NEPHRO DR MORALES
[2022-11-04] MEDS: MICAFUNGIN SODIUM 100 MG in IV NORMAL SALINE 100 ML IV SCH (13:45)
--- NOTE | 2022-11-04 15:01 | NUR ---
blood transfusion started via left upper arm midline. closely monitored
--- NOTE | 2022-11-04 16:03 | NUR ---
no reaction from blood transfusion noted continue with infusion and monitoring
[2022-11-04 16:30] LABS: BAND % (MANUAL) 0 % (0-10); BASOPHILS % (MANUAL) 0 % (0-2); EOSINOPHILS % (MANUAL) 0 % (0-8); LYMPHOCYTES % (MANUAL) 8 % (20-40); METAMYELOCYTES % 0 % (0-1); MONOCYTES % (MANUAL) 2 % (2-10); MYELOCYTES % 0 % (0-0); NEUTROPHILS % (MANUAL) 90 % (42-75); REACTIVE LYMPHOCYTES 0 % (0-0)
--- NOTE | 2022-11-04 16:41 | NUR ---
SEEN BY Dre ANDERSON SURG. COMPRESSED AIR PILE DRIVER OPERATOR SURGICEL OVER THE INSERTION SITE DONE THEN APPLIED 5 LBS SAND BAG
[2022-11-04] MEDS ORDERED: CELLULOSE,OXIDIZED 2x3 MC ONE (16:45)
--- NOTE | 2022-11-04 17:26 | NUR ---
BLEEDING UNDER CONTROL HD CATH SITE. CONTINUE WITH SANDBAG ORDERED
[2022-11-04] MEDS ORDERED: DESMOPRESSIN INJ 30 MCG in IV NORMAL SALINE 50 ML IV ONE (18:00)
--- NOTE | 2022-11-04 18:09 | NUR ---
blood transfusion completed no signs of BT reaction
--- NOTE | 2022-11-04 18:19 | NUR ---
HEMODIALYSIS STARTED AT BEDSIDE BY HD STAFF
--- NOTE | 2022-11-04 18:45 | NUR ---
2nd unit of blood started by hd staff, closely monitored
--- NOTE | 2022-11-04 18:59 | NUR ---
no signs of blood transfusion reaction continue with infusion
--- NOTE | 2022-11-04 20:00 | NUR ---
CHECKED RIGHT FEMORAL GROIN DIALYSIS ACCESS CATHETER NO ACTIVE BLEEDING NOTED EMBEDDED LINUX ENGINEER AT B/S PATIENT BEING DIALYZE .
--- NOTE | 2022-11-04 20:40 | NUR ---
PATIENT HAVING HD AT B/S IMPLEMENTATION DIRECTOR AT B/S.
[2022-11-04] MEDS: INSULIN GLARGINE,HUM 300 UNITS/3 ML CARTRIDGE SQ SCH (21:00)
--- NOTE | 2022-11-04 21:00 | NUR ---
PATIENT TOLERATED HD TOTAL FLUID REMOVAL OF 2000 LITERS .
[2022-11-04] MEDS: ESCITALOPRAM OXALATE 10 MG TABLET PO SCH (21:25)
[2022-11-04] MEDS: ATORVASTATIN 40 MG TABLET PO SCH (21:25)
--- NOTE | 2022-11-04 21:26 | NUR ---
DUE MEDICATION GIVEN VIA THE NGT CRUSHED MEDICATION AND GIVEN WITH WATER.
--- NOTE | 2022-11-04 21:54 | NUR ---
NO LANTUS GIVEN FINGERSTICK 106 PARAMETERS SAYS HOLD IF B/S <160.
--- NOTE | 2022-11-04 21:56 | NUR ---
WITH CNAS HELP TURNED AND REPOSITION PATIENT OFFLOADED BACK WITH 2PILLOWS BUE AND BLE ELEVATED WITH PILLOWS HEELS OFF BED . PATIENT ON AIRLOSS MATTRESS .
[2022-11-04 23:05] LABS: HEMATOCRIT 25.7 % (31.2-41.9)
[2022-11-05] VITALS (14 sets, daily range): BP systolic 127–169; BP diastolic 41–65
--- NOTE | 2022-11-05 | NUR ---
V/S WNL NO SOB NOTED BREATHING EVEN AND UNLABORED TOLERATING 02 NASAL CANNULA AT 3 L/MIN SATURATION 98 TO 100% .
[2022-11-05] MEDS: MORPHINE SULFATE 2 MG/1 ML DISP.SYRIN IV PRN (00:49)
--- NOTE | 2022-11-05 00:49 | NUR ---
PATIENT NOTED TO BE MOANING VERBALIZING PAIN TO HER LOWER BILATERAL LEGS GIVEN PRN MORPHINE PRN FOR PAIN .
--- NOTE | 2022-11-05 02:30 | NUR ---
WITH CNAS HELP TURNED AND REPOSITION PATIENT OFFLOADED BACK WITH PILLOWS AND BILATERAL HEELS ELEVATED WITH PILLOWS HEELS OFF BED . ORAL CARE DONE AND HOB UP .
[2022-11-05] MEDS: hydrALAZINE HCL 10 MG TABLET PO PRN (05:23)
--- NOTE | 2022-11-05 05:23 | NUR ---
HYDRALAZINE GIVEN C/O BP 169/47 HR 70 GIVEN VIA THE NGT TUBE FLUSHED W/ WATER Q USED .
--- NOTE | 2022-11-05 06:00 | NUR ---
AM CARE DONE WITH CNAS HELP , CHANGED SOILED LINENS AND GOWN PERINEAL CARE DONE AND ORAL CARE DONE . RIGHT FEMORAL GROIN SPENCER CATHETER SITE CDI NO ACTIVE BLEEDING NO HEMATOMA NOTED 2 LBS SANDBAG IN PLACED .
[2022-11-05] MEDS: HYDROCORTISONE SOD SUCCINATE 100 MG/2 ML VIAL IV SCH ×2 (06:06→17:21)
[2022-11-05] MEDS: PANTOPRAZOLE SODIUM 40 MG TABLET.DR PO SCH (06:08)
[2022-11-05] MEDS: BLOOD SUGAR DIAGNOSTIC 1 EACH STRIP VI SCH ×4 (06:35→21:11)
[2022-11-05 06:49] LABS: HEMATOCRIT 22.3 % (31.2-41.9); MEAN CORPUSCULAR HEMOGLOBIN 29.7 uug (24.7-32.8); MEAN CORPUSCULAR VOLUME 89.7 fL (75.5-95.3); PLATELET COUNT (AUTO) 54 K/uL (179-408)
[2022-11-05 07:02] LABS: ALANINE AMINOTRANSFERASE 7 U/L (14-59); ALKALINE PHOSPHATASE 84 U/L (50-136); ASPARTATE AMINOTRANSFERASE 20 U/L (15-37); CARBON DIOXIDE 30 mmol/L (21-32); CHLORIDE 100 mmol/L (98-107); CREATININE 3.1 mg/dL (0.6-1.3); GLUCOSE 168 mg/dL (74-106); POTASSIUM 3.6 mmol/L (3.5-5.1); TOTAL PROTEIN, SERUM 5.5 g/dL (6.4-8.2); UREA NITROGEN, BLOOD 42 mg/dL (7-18)
[2022-11-05] MEDS: DOCUSATE SODIUM 100 MG CAPSULE PO SCH (08:12)
[2022-11-05] MEDS: FOLIC ACID/VITAMIN B COMP W-C TABLET PO SCH (08:12)
[2022-11-05] MEDS: SENNOSIDES 1 TABLET PO SCH ×2 (08:12→17:21)
[2022-11-05] MEDS: REMEDY ESSENTIAL ZINC PASTE 113 GM TOP SCH ×2 (08:13→21:02)
[2022-11-05] MEDS: SEVELAMER CARBONATE 800 MG POWD.PACK PO SCH ×3 (08:13→17:21)
[2022-11-05] MEDS: PROTEIN SUPPLEMENT (PROSTAT) 30 ML LIQUID PO SCH ×2 (08:15→17:28)
[2022-11-05] MEDS: MEDIHONEY= THERAHONEY 1.5 OZ TUBE TOP SCH (08:20)
[2022-11-05] MEDS: MEROPENEM 500 MG in IV NORMAL SALINE 50 ML IV SCH ×2 (08:20→20:50)
[2022-11-05] MEDS: NEPRO (VANILLA) 237 ML CAN PO SCH ×3 (08:20→17:27)
[2022-11-05] MEDS: INSULIN REGULAR, HUMAN 300 UNIT/3 ML VIAL SQ PRN ×4 (08:29→21:21)
[2022-11-05] MEDS: DOCUSATE SODIUM 100 MG/10 ML LIQUID UDC PO SCH ×2 (08:42→17:21)
[2022-11-05] MEDS: INSULIN GLARGINE,HUM 300 UNITS/3 ML CARTRIDGE SQ SCH ×2 (08:44→21:19)
--- NOTE | 2022-11-05 11:59 | NUR ---
Received order from Dr. Lewis to remove the NG-Tube. NG-Tube removed and pt. was able to tolerate it. Will keep monitoring the patient.
[2022-11-05] MEDS: MICAFUNGIN SODIUM 100 MG in IV NORMAL SALINE 100 ML IV SCH (14:17)
[2022-11-05 14:40] LABS: HEMATOCRIT 21.8 % (31.2-41.9)
--- NOTE | 2022-11-05 15:42 | NUR ---
At 1444 Pedro called to report a critical lab value of Hgb 7.0 Dr. Lewis was notified and received order to administer one unit of RBC. Administrating of RBC initiated and will keep monitoring the patient.
--- NOTE | 2022-11-05 15:47 | NUR ---
Received order form Dr. Lewis to recheck the H&H 1 hour after blood transfusion is done. Order carried out.
--- NOTE | 2022-11-05 17:51 | NUR ---
Pt. has been stable during the shift. No c/o pain. Compliance with the care given. Kept the pt. clean and dry. Turned and repositioned every 2 hours and as needed. Will keep monitoring the patient.
--- NOTE | 2022-11-05 20:00 | NUR ---
Received patient sleeping in bed. In no apparent distress, susannah cath, left groin no bleeding noted, left midline, patent and intact
[2022-11-05 20:50] LABS: HEMATOCRIT 29.7 % (31.2-41.9)
[2022-11-05] MEDS: ATORVASTATIN 40 MG TABLET PO SCH (20:54)
[2022-11-05] MEDS: ESCITALOPRAM OXALATE 10 MG TABLET PO SCH (20:55)
[2022-11-06] VITALS: BP 155/65
[2022-11-06 04:20] VITALS: BP 149/43
[2022-11-06] MEDS: PANTOPRAZOLE SODIUM 40 MG TABLET.DR PO SCH (06:06)
[2022-11-06] MEDS: HYDROCORTISONE SOD SUCCINATE 100 MG/2 ML VIAL IV SCH (06:06)
--- NOTE | 2022-11-06 06:08 | NUR ---
protonix unable to administer- pill can not be crushed
[2022-11-06] MEDS: BLOOD SUGAR DIAGNOSTIC 1 EACH STRIP VI SCH ×5 (06:28→20:55)
[2022-11-06 06:47] LABS: ALANINE AMINOTRANSFERASE 10 U/L (14-59); ALKALINE PHOSPHATASE 97 U/L (50-136); ASPARTATE AMINOTRANSFERASE 25 U/L (15-37); BILIRUBIN,TOTAL 0.7 mg/dL (0.2-1.0); CARBON DIOXIDE 30 mmol/L (21-32); CHLORIDE 101 mmol/L (98-107); GLUCOSE 61 mg/dL (74-106); UREA NITROGEN, BLOOD 67 mg/dL (7-18)
[2022-11-06 07:07] LABS: HEMATOCRIT 25.8 % (31.2-41.9); MEAN CORPUSCULAR HEMOGLOBIN 29.7 uug (24.7-32.8); MEAN CORPUSCULAR VOLUME 89.3 fL (75.5-95.3); PLATELET COUNT (AUTO) 71 K/uL (179-408)
--- NOTE | 2022-11-06 07:09 | NUR ---
Patient slept well, AAox2-3 occasionally forgetful, repositioned for comfort. Platelets infused within shift, tolerated well. AM Glucose dropped to 57, apple sauce given and glucose increased to 87 WNL. Continue plan of care and continue to monitor
[2022-11-06] MEDS: FOLIC ACID/VITAMIN B COMP W-C TABLET PO SCH (08:31)
[2022-11-06] MEDS: DOCUSATE SODIUM 100 MG/10 ML LIQUID UDC PO SCH ×2 (08:31→17:21)
[2022-11-06] MEDS: SENNOSIDES 1 TABLET PO SCH ×2 (08:31→17:21)
[2022-11-06] MEDS: SEVELAMER CARBONATE 800 MG POWD.PACK PO SCH ×3 (08:32→17:22)
[2022-11-06] MEDS: NEPRO (VANILLA) 237 ML CAN PO SCH ×3 (08:33→17:21)
[2022-11-06] MEDS: MEDIHONEY= THERAHONEY 1.5 OZ TUBE TOP SCH (08:33)
[2022-11-06] MEDS: REMEDY ESSENTIAL ZINC PASTE 113 GM TOP SCH ×2 (08:33→20:15)
[2022-11-06] MEDS: MEROPENEM 500 MG in IV NORMAL SALINE 50 ML IV SCH ×2 (08:37→20:15)
[2022-11-06] MEDS: INSULIN GLARGINE,HUM 300 UNITS/3 ML CARTRIDGE SQ SCH ×2 (08:48→20:46)
[2022-11-06] MEDS: PROTEIN SUPPLEMENT (PROSTAT) 30 ML LIQUID PO SCH ×2 (08:49→17:22)
--- NOTE | 2022-11-06 09:22 | NUR ---
order obtained from dr gee for dialysis today. Heriberto is aware.
[2022-11-06] MEDS: INSULIN REGULAR, HUMAN 300 UNIT/3 ML VIAL SQ PRN ×3 (11:35→20:48)
[2022-11-06 11:44] VITALS: BP 187/51
[2022-11-06] MEDS: hydrALAZINE HCL 10 MG TABLET PO PRN ×2 (11:49→17:21)
--- NOTE | 2022-11-06 11:50 | NUR ---
Noted pt. is having BP 185/59. Pt. has order for Hydralazine PRN if SBP>160. PRN medication will be administer and will recheck the BP. Will keep monitoring the patient.
--- NOTE | 2022-11-06 12:45 | NUR ---
BP rechecked and noted at 142/59 after medication hydralazine PRN given. Pt. has been stable and Will keep monitoring the pt.
[2022-11-06] MEDS: MICAFUNGIN SODIUM 100 MG in IV NORMAL SALINE 100 ML IV SCH (14:01)
--- NOTE | 2022-11-06 14:52 | NUR ---
Dialysis Notes: HD treatment completed and tolerated procedure well. VSS. Awake and alert. UF 2L as ordered. BP 152/81. HR 70. No bleeding noted to HD catheter site, dressing CDI.
--- NOTE | 2022-11-06 15:06 | NUR ---
Dialysis done and pt. was able to tolerate it. 2L of fluid removed. Pt. noted to be stable during and after the dialysis. Will keep monitoring the patient.
--- NOTE | 2022-11-06 17:31 | NUR ---
BP was checked again and noted at 179/55. Reported to Dr. Lewis and explained to him that pt. BP. was high earlier and one dose of hydralazine administer and pt. went through dialysis and her BP stabilized but when checked again now it is noted at 179/[address] Lewis ordered to administer another dose of Hydralazine PRN. Order was followed and will keep monitoring the patient.
[2022-11-06 17:39] VITALS: BP 175/57
[2022-11-06] MEDS: ESCITALOPRAM OXALATE 10 MG TABLET PO SCH (20:15)
[2022-11-06] MEDS: ATORVASTATIN 40 MG TABLET PO SCH (20:15)
[2022-11-06] MEDS: MORPHINE SULFATE 2 MG/1 ML DISP.SYRIN IV PRN (20:16)
[2022-11-06 20:47] VITALS: BP 173/62
[2022-11-06 22:00] VITALS: BP 145/50
[2022-11-07] MEDS: MORPHINE SULFATE 2 MG/1 ML DISP.SYRIN IV PRN (02:53)
[2022-11-07 03:30] VITALS: BP 182/55
[2022-11-07] MEDS: hydrALAZINE HCL 10 MG TABLET PO PRN ×2 (03:34→11:36)
[2022-11-07 05:41] LABS: HEMATOCRIT 26.3 % (31.2-41.9); MEAN CORPUSCULAR HEMOGLOBIN 29.3 uug (24.7-32.8); MEAN CORPUSCULAR VOLUME 88.5 fL (75.5-95.3); PLATELET COUNT (AUTO) 84 K/uL (179-408)
[2022-11-07 06:03] LABS: ALANINE AMINOTRANSFERASE 8 U/L (14-59); ALKALINE PHOSPHATASE 88 U/L (50-136); ASPARTATE AMINOTRANSFERASE 21 U/L (15-37); BILIRUBIN,TOTAL 0.7 mg/dL (0.2-1.0); CARBON DIOXIDE 31 mmol/L (21-32); CHLORIDE 99 mmol/L (98-107); CREATININE 3.9 mg/dL (0.6-1.3); GLUCOSE 84 mg/dL (74-106); POTASSIUM 3.6 mmol/L (3.5-5.1); TOTAL PROTEIN, SERUM 5.9 g/dL (6.4-8.2); UREA NITROGEN, BLOOD 62 mg/dL (7-18)
[2022-11-07 06:23] LABS: EOSINOPHILS % (MANUAL) 4 % (0-8); LYMPHOCYTES % (MANUAL) 13 % (20-40); MONOCYTES % (MANUAL) 6 % (2-10); NEUTROPHILS % (MANUAL) 77 % (42-75)
[2022-11-07] MEDS: PANTOPRAZOLE ORAL SUSPENSION 40 MG SUSPDR.PKT PO SCH ×2 (06:26→08:01)
[2022-11-07] MEDS: BLOOD SUGAR DIAGNOSTIC 1 EACH STRIP VI SCH ×4 (06:27→20:12)
[2022-11-07] MEDS: SEVELAMER CARBONATE 800 MG POWD.PACK PO SCH ×3 (08:01→17:18)
[2022-11-07] MEDS: FOLIC ACID/VITAMIN B COMP W-C TABLET PO SCH (08:01)
[2022-11-07] MEDS: SENNOSIDES 1 TABLET PO SCH ×2 (08:01→16:16)
[2022-11-07] MEDS: DOCUSATE SODIUM 100 MG/10 ML LIQUID UDC PO SCH ×2 (08:01→16:16)
[2022-11-07] MEDS: INSULIN GLARGINE,HUM 300 UNITS/3 ML CARTRIDGE SQ SCH ×2 (08:02→20:04)
[2022-11-07] MEDS: NEPRO (VANILLA) 237 ML CAN PO SCH ×3 (08:30→16:28)
[2022-11-07] MEDS: PROTEIN SUPPLEMENT (PROSTAT) 30 ML LIQUID PO SCH ×2 (08:30→16:28)
[2022-11-07] MEDS: MEDIHONEY= THERAHONEY 1.5 OZ TUBE TOP SCH (08:31)
[2022-11-07] MEDS: REMEDY ESSENTIAL ZINC PASTE 113 GM TOP SCH ×2 (08:32→20:14)
[2022-11-07] MEDS: MEROPENEM 500 MG in IV NORMAL SALINE 50 ML IV SCH ×2 (08:38→20:15)
[2022-11-07 11:33] VITALS: BP 172/52
[2022-11-07] MEDS: MICAFUNGIN SODIUM 100 MG in IV NORMAL SALINE 100 ML IV SCH (14:06)
[2022-11-07] MEDS: hydrALAZINE HCL 20 MG/1 ML VIAL IV PRN (15:27)
[2022-11-07 15:29] VITALS: BP 192/56
--- NOTE | 2022-11-07 15:29 | NUR ---
PT BP IS 195/65 PER MD ORDERS HYDRALAZINE 10 MG IV PUSH GIVEN BY RN
[2022-11-07 16:32] VITALS: BP 143/38
[2022-11-07] MEDS: INSULIN REGULAR, HUMAN 300 UNIT/3 ML VIAL SQ PRN ×2 (16:35→20:04)
[2022-11-07] MEDS: ATORVASTATIN 40 MG TABLET PO SCH (20:01)
[2022-11-07] MEDS: ESCITALOPRAM OXALATE 10 MG TABLET PO SCH (20:01)
[2022-11-07] MEDS: HYDROCODONE/APAP 5-325MG TABLET PO PRN (20:01)
[2022-11-07 20:28] VITALS: BP 173/45
[2022-11-07 22:00] VITALS: BP 159/45
[2022-11-08] VITALS (7 sets, daily range): BP systolic 145–175; BP diastolic 45–74
[2022-11-08] MEDS: hydrALAZINE HCL 20 MG/1 ML VIAL IV PRN (00:11)
[2022-11-08] MEDS: BLOOD SUGAR DIAGNOSTIC 1 EACH STRIP VI SCH ×5 (06:12→20:26)
[2022-11-08 06:49] LABS: MEAN CORPUSCULAR VOLUME 89.2 fL (75.5-95.3); PLATELET COUNT (AUTO) 111 K/uL (179-408)
[2022-11-08 07:01] LABS: ALKALINE PHOSPHATASE 105 U/L (50-136); ASPARTATE AMINOTRANSFERASE 14 U/L (15-37); BILIRUBIN,TOTAL 0.7 mg/dL (0.2-1.0); CARBON DIOXIDE 30 mmol/L (21-32); CHLORIDE 96 mmol/L (98-107); CREATININE 4.5 mg/dL (0.6-1.3); GLUCOSE 73 mg/dL (74-106); POTASSIUM 4.1 mmol/L (3.5-5.1); TOTAL PROTEIN, SERUM 5.9 g/dL (6.4-8.2)
[2022-11-08 07:03] LABS: MAGNESIUM 1.8 mg/dL (1.8-2.4); PHOSPHOROUS 5.2 mg/dL (2.5-4.9)
--- NOTE | 2022-11-08 07:05 | NUR ---
Received patient sleeping in bed. In no apparent distress, left arm midline, patent and intact call light with in reach
--- NOTE | 2022-11-08 07:23 | NUR ---
END OF SHIFT REPORT PAtient rested well in between care; BP has been labile; hydralazine IV given x1 andf pain management with Loop x1; repositioned q2h; hourly rounding done
[2022-11-08 07:58] LABS: UREA NITROGEN, BLOOD 80 mg/dL (7-18)
[2022-11-08 08:00] LABS: ALANINE AMINOTRANSFERASE < 6 U/L (14-59)
[2022-11-08] MEDS: DOCUSATE SODIUM 100 MG/10 ML LIQUID UDC PO SCH ×2 (08:02→16:14)
[2022-11-08] MEDS: SENNOSIDES 1 TABLET PO SCH ×2 (08:02→16:14)
[2022-11-08] MEDS: PANTOPRAZOLE ORAL SUSPENSION 40 MG SUSPDR.PKT PO SCH (08:02)
[2022-11-08] MEDS: INSULIN GLARGINE,HUM 300 UNITS/3 ML CARTRIDGE SQ SCH ×2 (08:03→20:27)
[2022-11-08] MEDS: FOLIC ACID/VITAMIN B COMP W-C TABLET PO SCH (08:03)
[2022-11-08] MEDS: SEVELAMER CARBONATE 800 MG POWD.PACK PO SCH ×3 (08:03→17:11)
[2022-11-08] MEDS: MEROPENEM 500 MG in IV NORMAL SALINE 50 ML IV SCH ×2 (08:23→21:20)
[2022-11-08] MEDS: PROTEIN SUPPLEMENT (PROSTAT) 30 ML LIQUID PO SCH ×2 (09:00→16:15)
[2022-11-08] MEDS: NEPRO (VANILLA) 237 ML CAN PO SCH ×3 (09:18→16:15)
[2022-11-08] MEDS: MEDIHONEY= THERAHONEY 1.5 OZ TUBE TOP SCH (09:19)
[2022-11-08] MEDS: REMEDY ESSENTIAL ZINC PASTE 113 GM TOP SCH ×2 (09:19→20:26)
[2022-11-08] MEDS: AMLODIPINE 10 MG TABLET PO SCH (09:23)
[2022-11-08] MEDS: MICAFUNGIN SODIUM 100 MG in IV NORMAL SALINE 100 ML IV SCH (14:12)
--- NOTE | 2022-11-08 14:55 | NUR ---
HEMODIALYSIS STARTED AT BEDSIDE BY HD STAFF
[2022-11-08] MEDS: INSULIN REGULAR, HUMAN 300 UNIT/3 ML VIAL SQ PRN (16:18)
[2022-11-08] MEDS: HYDROCODONE/APAP 5-325MG TABLET PO PRN (20:20)
[2022-11-08] MEDS: ESCITALOPRAM OXALATE 10 MG TABLET PO SCH (20:28)
[2022-11-08] MEDS: HEPARIN SODIUM,PORCINE 5,000 UNITS/ML VIAL SQ SCH (20:28)
[2022-11-08] MEDS: ATORVASTATIN 40 MG TABLET PO SCH (20:28)
[2022-11-09] VITALS: BP 155/56
[2022-11-09 04:00] VITALS: BP 154/55
[2022-11-09] MEDS: BLOOD SUGAR DIAGNOSTIC 1 EACH STRIP VI SCH ×4 (06:31→20:42)
[2022-11-09 06:45] LABS: HEMATOCRIT 29.1 % (31.2-41.9); MEAN CORPUSCULAR HEMOGLOBIN 29.6 uug (24.7-32.8); MEAN CORPUSCULAR VOLUME 88.7 fL (75.5-95.3); PLATELET COUNT (AUTO) 100 K/uL (179-408)
[2022-11-09 07:17] LABS: ALANINE AMINOTRANSFERASE < 6 U/L (14-59); ALKALINE PHOSPHATASE 110 U/L (50-136); ASPARTATE AMINOTRANSFERASE 11 U/L (15-37); BILIRUBIN,TOTAL 0.7 mg/dL (0.2-1.0); CARBON DIOXIDE 33 mmol/L (21-32); CHLORIDE 98 mmol/L (98-107); CREATININE 3.3 mg/dL (0.6-1.3); GLUCOSE 85 mg/dL (74-106); POTASSIUM 3.9 mmol/L (3.5-5.1); TOTAL PROTEIN, SERUM 6.2 g/dL (6.4-8.2); UREA NITROGEN, BLOOD 47 mg/dL (7-18)
[2022-11-09] MEDS: AMLODIPINE 10 MG TABLET PO SCH (08:57)
[2022-11-09] MEDS: PANTOPRAZOLE ORAL SUSPENSION 40 MG SUSPDR.PKT PO SCH (08:57)
[2022-11-09] MEDS: SENNOSIDES 1 TABLET PO SCH ×2 (08:57→16:24)
[2022-11-09] MEDS: DOCUSATE SODIUM 100 MG/10 ML LIQUID UDC PO SCH ×2 (08:57→16:24)
[2022-11-09] MEDS: FOLIC ACID/VITAMIN B COMP W-C TABLET PO SCH (08:57)
[2022-11-09] MEDS: INSULIN GLARGINE,HUM 300 UNITS/3 ML CARTRIDGE SQ SCH ×2 (09:00→21:00)
[2022-11-09] MEDS: NEPRO (VANILLA) 237 ML CAN PO SCH ×3 (09:03→16:24)
[2022-11-09] MEDS: SEVELAMER CARBONATE 800 MG POWD.PACK PO SCH ×3 (09:03→17:10)
[2022-11-09] MEDS: PROTEIN SUPPLEMENT (PROSTAT) 30 ML LIQUID PO SCH ×2 (09:04→16:25)
[2022-11-09] MEDS: MEDIHONEY= THERAHONEY 1.5 OZ TUBE TOP SCH (09:05)
[2022-11-09] MEDS: REMEDY ESSENTIAL ZINC PASTE 113 GM TOP SCH ×2 (09:05→21:17)
[2022-11-09] MEDS: MEROPENEM 500 MG in IV NORMAL SALINE 50 ML IV SCH ×2 (09:08→20:15)
[2022-11-09] MEDS: ASPIRIN 81 MG TAB.CHEW PO SCH (09:16)
[2022-11-09] MEDS: HEPARIN SODIUM,PORCINE 5,000 UNITS/ML VIAL SQ SCH (10:16)
[2022-11-09] MEDS: INSULIN REGULAR, HUMAN 300 UNIT/3 ML VIAL SQ PRN ×2 (11:39→21:09)
[2022-11-09 11:54] VITALS: BP 160/55
[2022-11-09] MEDS: MICAFUNGIN SODIUM 100 MG in IV NORMAL SALINE 100 ML IV SCH (14:01)
[2022-11-09 15:02] VITALS: BP 159/55
--- NOTE | 2022-11-09 18:22 | NUR ---
No significant event reported all shift family came to visit the pt ,pt will be npo after midnight for the procedure All needs attended and met. Continue current b plan of care.
--- NOTE | 2022-11-09 20:00 | NUR ---
Received patient sleeping in bed. In no apparent distress, Ottoniel cath, left groin no bleeding noted, left midline patent and intact. Will continue plan of care.
[2022-11-09] MEDS: ESCITALOPRAM OXALATE 10 MG TABLET PO SCH (20:16)
[2022-11-09 20:19] VITALS: BP 165/45
--- NOTE | 2022-11-09 21:00 | NUR ---
PATIENT ORDERED 25 UNITS OF LANTUS, HOWEVER PATIENT WILL BE NPO AFTER MIDNIGHT FOR PROCEDURE, CONTACTED DR. DUKE AND WAS ORDERED TO GIVE 10 UNITS INSTEAD OF 25
[2022-11-09] MEDS ORDERED: INSULIN GLARGINE,HUM 300 UNITS/3 ML CARTRIDGE SQ SCH (21:15)
[2022-11-09] MEDS: hydrALAZINE HCL 20 MG/1 ML VIAL IV PRN (23:35)
[2022-11-09 23:41] VITALS: BP 164/45
[2022-11-10] MEDS ORDERED: INSULIN REGULAR, HUMAN 300 UNIT/3 ML VIAL SQ PRN ×2 (02:15→19:45)
[2022-11-10] MEDS ORDERED: DEXTROSE 50% 50 ML DISP.SYRIN IV PRN (02:15)
[2022-11-10 04:34] VITALS: BP 173/58
[2022-11-10] MEDS: hydrALAZINE HCL 20 MG/1 ML VIAL IV PRN ×3 (04:59→20:39)
[2022-11-10] MEDS: BLOOD SUGAR DIAGNOSTIC 1 EACH STRIP VI SCH ×4 (05:53→20:48)
[2022-11-10 06:45] LABS: HEMATOCRIT 27.2 % (31.2-41.9); MEAN CORPUSCULAR HEMOGLOBIN 30.2 uug (24.7-32.8); MEAN CORPUSCULAR VOLUME 89.4 fL (75.5-95.3); PLATELET COUNT (AUTO) 114 K/uL (179-408)
--- NOTE | 2022-11-10 07:00 | NUR ---
Patient slept well, AAox2-3 occasionally forgetful, repositioned for comfort. Patient NPO after midnight. Needs attended to and met. Continue plan of care and continue to monitor
[2022-11-10 07:17] LABS: ALANINE AMINOTRANSFERASE 6 U/L (14-59); ALKALINE PHOSPHATASE 103 U/L (50-136); ASPARTATE AMINOTRANSFERASE 21 U/L (15-37); BILIRUBIN,TOTAL 0.7 mg/dL (0.2-1.0); CARBON DIOXIDE 32 mmol/L (21-32); CHLORIDE 96 mmol/L (98-107); CREATININE 3.9 mg/dL (0.6-1.3); GLUCOSE 86 mg/dL (74-106); MAGNESIUM 1.8 mg/dL (1.8-2.4); PHOSPHOROUS 4.8 mg/dL (2.5-4.9); POTASSIUM 4.1 mmol/L (3.5-5.1); TOTAL PROTEIN, SERUM 6.2 g/dL (6.4-8.2); UREA NITROGEN, BLOOD 63 mg/dL (7-18)
[2022-11-10] MEDS: SEVELAMER CARBONATE 800 MG POWD.PACK PO SCH ×3 (08:00→17:21)
[2022-11-10] MEDS: PROTEIN SUPPLEMENT (PROSTAT) 30 ML LIQUID PO SCH ×2 (09:00→17:20)
[2022-11-10] MEDS: DOCUSATE SODIUM 100 MG/10 ML LIQUID UDC PO SCH ×2 (09:00→17:19)
[2022-11-10] MEDS: FOLIC ACID/VITAMIN B COMP W-C TABLET PO SCH (09:00)
[2022-11-10] MEDS: SENNOSIDES 1 TABLET PO SCH ×2 (09:00→17:19)
[2022-11-10] MEDS: INSULIN GLARGINE,HUM 300 UNITS/3 ML CARTRIDGE SQ SCH ×2 (09:00→20:47)
[2022-11-10] MEDS: ASPIRIN 81 MG TAB.CHEW PO SCH (09:00)
[2022-11-10] MEDS: NEPRO (VANILLA) 237 ML CAN PO SCH ×3 (09:00→17:20)
[2022-11-10 09:01] VITALS: BP 162/54
[2022-11-10] MEDS: AMLODIPINE 10 MG TABLET PO SCH (09:18)
[2022-11-10] MEDS: MEROPENEM 500 MG in IV NORMAL SALINE 50 ML IV SCH ×2 (09:18→20:50)
[2022-11-10] MEDS: MEDIHONEY= THERAHONEY 1.5 OZ TUBE TOP SCH (10:13)
[2022-11-10] MEDS: REMEDY ESSENTIAL ZINC PASTE 113 GM TOP SCH ×2 (10:14→20:47)
[2022-11-10] MEDS: PANTOPRAZOLE SODIUM 40 MG TABLET.DR PO SCH (10:28)
[2022-11-10 11:16] VITALS: BP 162/54
[2022-11-10] MEDS ORDERED: CLONIDINE-TTS 1 PATCH TD SCH (12:00)
[2022-11-10] MEDS ORDERED: LIDOCAINE HCL 1% 20 ML VIAL ONE (12:55)
[2022-11-10] MEDS ORDERED: HEPARIN/NS 500 ML ONE (12:55)
[2022-11-10] MEDS ORDERED: HEPARIN SODIUM,PORCINE 1,000 UNITS/ML VIAL ONE (12:56)
--- NOTE | 2022-11-10 14:07 | NUR ---
pt was mixing picker tender by surgery team for placement of tunneled dialysis catheter
[2022-11-10] MEDS ORDERED: PROPOFOL 200 MG/20 ML BOTTLE ONE (14:35)
[2022-11-10] MEDS ORDERED: ETOMIDATE 20 MG/10 ML VIAL ONE (14:35)
[2022-11-10] MEDS ORDERED: diphenhydrAMINE 50 MG/1 ML VIAL ONE (14:35)
[2022-11-10] MEDS ORDERED: CEFAZOLIN 1 G VIAL ONE (14:35)
--- NOTE | 2022-11-10 16:36 | NUR ---
s/p perma-cath placement. right femoral Ottoniel catheter was removed per surgery. no bleeding noted. resume diet per .
[2022-11-10] MEDS: MICAFUNGIN SODIUM 100 MG in IV NORMAL SALINE 100 ML IV SCH (16:40)
[2022-11-10] MEDS: hydrALAZINE HCL 50 MG TABLET PO SCH ×2 (16:41→22:13)
--- NOTE | 2022-11-10 18:28 | NUR ---
no dialysis today per dr. lara
--- NOTE | 2022-11-10 18:47 | NUR ---
pt alert and oriented. in no acute distress. bed bound. s/p permacath tunneled insertion. no bleeding noted. aspiration precaution observed. wound tx done. safety measure in placed. bed locked. all need attended.
[2022-11-10 18:51] VITALS: BP 157/47
[2022-11-10] MEDS ORDERED: INSULIN REGULAR, HUMAN 300 UNITS/3 ML VIAL SQ PRN (19:45)
[2022-11-10] MEDS: ESCITALOPRAM OXALATE 10 MG TABLET PO SCH (20:38)
[2022-11-10] MEDS: HYDROCODONE/APAP 5-325MG TABLET PO PRN (20:38)
[2022-11-10 20:43] VITALS: BP 173/53
[2022-11-10 23:51] VITALS: BP 142/53
[2022-11-11 03:57] VITALS: BP 156/77
[2022-11-11] MEDS: hydrALAZINE HCL 50 MG TABLET PO SCH ×3 (05:48→21:37)
[2022-11-11] MEDS: BLOOD SUGAR DIAGNOSTIC 1 EACH STRIP VI SCH ×5 (06:06→20:50)
--- NOTE | 2022-11-11 06:55 | NUR ---
END OF SHIFT REPORT Patient rested well in between care; no acute distress; VSS; pain management with Max x1; needs attended; continue to monitor; continue plan of care
--- NOTE | 2022-11-11 07:30 | NUR ---
Sleeping, appears comfortable. O2 at 2L/NC, on moderate high back rest.
[2022-11-11] MEDS ORDERED: CLONIDINE TTS 2 PATCH TD SCH (09:00)
[2022-11-11] MEDS: MEROPENEM 500 MG in IV NORMAL SALINE 50 ML IV SCH ×2 (09:15→21:10)
[2022-11-11] MEDS: DOCUSATE SODIUM 100 MG/10 ML LIQUID UDC PO SCH ×2 (09:16→17:33)
[2022-11-11] MEDS: ASPIRIN 81 MG TAB.CHEW PO SCH (09:16)
[2022-11-11] MEDS: SEVELAMER CARBONATE 800 MG POWD.PACK PO SCH ×3 (09:16→17:33)
[2022-11-11] MEDS: SENNOSIDES 1 TABLET PO SCH ×2 (09:17→17:33)
[2022-11-11] MEDS: REMEDY ESSENTIAL ZINC PASTE 113 GM TOP SCH ×2 (09:18→20:30)
[2022-11-11] MEDS: MEDIHONEY= THERAHONEY 1.5 OZ TUBE TOP SCH (09:18)
[2022-11-11] MEDS: HEPARIN SODIUM,PORCINE 5,000 UNITS/ML VIAL SQ SCH ×2 (09:19→20:30)
[2022-11-11] MEDS: INSULIN GLARGINE,HUM 300 UNITS/3 ML CARTRIDGE SQ SCH (09:27)
[2022-11-11] MEDS: FOLIC ACID/VITAMIN B COMP W-C TABLET PO SCH (09:27)
[2022-11-11] MEDS: METOPROLOL SUCCINATE XL 50 MG TAB.SR.24H PO SCH (09:28)
[2022-11-11] MEDS: PROTEIN SUPPLEMENT (PROSTAT) 30 ML LIQUID PO SCH ×2 (09:29→17:00)
[2022-11-11] MEDS: NEPRO (VANILLA) 237 ML CAN PO SCH ×3 (09:29→17:34)
[2022-11-11] MEDS: AMLODIPINE 10 MG TABLET PO SCH (09:36)
[2022-11-11] MEDS: ACETAMINOPHEN 325 MG TABLET PO PRN (10:02)
[2022-11-11 11:44] VITALS: BP 167/53
--- NOTE | 2022-11-11 13:00 | NUR ---
Assisted with meal but able to consume only 5% of meal, supplement given.
[2022-11-11] MEDS: MICAFUNGIN SODIUM 100 MG in IV NORMAL SALINE 100 ML IV SCH (14:48)
[2022-11-11 15:54] VITALS: BP 158/51
--- NOTE | 2022-11-11 17:01 | NUR ---
Bed bath given and wound care done. Repositioned in bed comfortably. Hemodialysis to be started.
[2022-11-11] MEDS: HYDROCODONE/APAP 5-325MG TABLET PO PRN ×2 (17:34→21:37)
--- NOTE | 2022-11-11 17:53 | NUR ---
BG 70; Apple juice given. Reports of pain. Myra po given. Hemodialysis on going.
--- NOTE | 2022-11-11 20:00 | NUR ---
RECEIVED PATIENT ASLEEP IN BED, RECEIVING HEMODIALYSIS. FLYING I INSTRUCTOR AT BEDSIDE. ON TELE SR. BP STABLE AT THIS TIME REPORTED PER HD NURSE. WILL CONTINUE TO MONITOR AND ASSESS.
[2022-11-11] MEDS: ESCITALOPRAM OXALATE 10 MG TABLET PO SCH (20:25)
[2022-11-11 20:30] VITALS: BP 102/54
--- NOTE | 2022-11-11 20:30 | NUR ---
PATIENT AWAKE IN BED. VS WNL. HD FINISHED. 2L REMOVED. CHECKED PATIENTS BLOOD SUGAR AND RECEIVED 66. PATIENT GIVEN PUDDING AND JUICE. WILL RECHECK. WILL CONTINUE TO MONITOR AND ASSESS.
--- NOTE | 2022-11-11 20:50 | NUR ---
RECHECKED PATIENTS BLOOD SUGAR. PATIENT REFUSING TO EAT AND MORE. ONLY TOOK A FEW BITES OF PUDDING. BS 70. WILL CONTINUE TO MONITOR AND ASSESS.
[2022-11-11] MEDS ORDERED: INSULIN GLARGINE,HUM 300 UNITS/3 ML CARTRIDGE SQ SCH (21:00)
[2022-11-12 00:52] VITALS: BP 167/46
[2022-11-12 02:30] VITALS: BP 135/48
[2022-11-12] MEDS: HYDROCODONE/APAP 5-325MG TABLET PO PRN (05:13)
[2022-11-12] MEDS: hydrALAZINE HCL 50 MG TABLET PO SCH ×2 (05:24→13:39)
[2022-11-12] MEDS: BLOOD SUGAR DIAGNOSTIC 1 EACH STRIP VI SCH ×4 (06:29→16:30)
[2022-11-12] MEDS: DEXTROSE 50% 50 ML DISP.SYRIN IV PRN ×2 (06:30→07:03)
--- NOTE | 2022-11-12 06:30 | NUR ---
PATIENTS BLOOD SUGAR THIS MORNING IS 62. PATIENT IS NOT FULLY AWAKE ENOUGH TO TAKE PO FLUIDS AT THIS TIME. MAINTENANCE PLUMBER AT BEDSIDE TO GIVE DEXTROSE IV. WILL RECHECK. ALL NEEDS ATTENDED.
[2022-11-12 06:43] LABS: HEMATOCRIT 26.7 % (31.2-41.9); MEAN CORPUSCULAR VOLUME 90.6 fL (75.5-95.3); PLATELET COUNT (AUTO) 140 K/uL (179-408)
[2022-11-12 07:01] LABS: CARBON DIOXIDE 36 mmol/L (21-32); CHLORIDE 100 mmol/L (98-107); GLUCOSE 69 mg/dL (74-106); MAGNESIUM 1.9 mg/dL (1.8-2.4); PHOSPHOROUS 3.7 mg/dL (2.5-4.9); POTASSIUM 3.6 mmol/L (3.5-5.1); UREA NITROGEN, BLOOD 41 mg/dL (7-18)
--- NOTE | 2022-11-12 07:54 | NUR ---
s/p d50 administration. blood sugar 64. made aware.
[2022-11-12 08:39] VITALS: BP 148/39
[2022-11-12] MEDS: METOPROLOL SUCCINATE XL 50 MG TAB.SR.24H PO SCH (09:00)
[2022-11-12] MEDS ORDERED: INSULIN GLARGINE,HUM 300 UNITS/3 ML CARTRIDGE SQ SCH (09:00)
[2022-11-12] MEDS: SENNOSIDES 1 TABLET PO SCH (09:50)
[2022-11-12] MEDS: FOLIC ACID/VITAMIN B COMP W-C TABLET PO SCH (09:50)
[2022-11-12] MEDS: ASPIRIN 81 MG TAB.CHEW PO SCH (09:50)
[2022-11-12] MEDS: SEVELAMER CARBONATE 800 MG POWD.PACK PO SCH ×2 (09:50→13:39)
[2022-11-12] MEDS: MEROPENEM 500 MG in IV NORMAL SALINE 50 ML IV SCH (09:50)
[2022-11-12] MEDS: AMLODIPINE 10 MG TABLET PO SCH (09:50)
[2022-11-12] MEDS: DOCUSATE SODIUM 100 MG/10 ML LIQUID UDC PO SCH (09:50)
[2022-11-12] MEDS: PANTOPRAZOLE SODIUM 40 MG TABLET.DR PO SCH (09:51)
[2022-11-12] MEDS: REMEDY ESSENTIAL ZINC PASTE 113 GM TOP SCH (09:52)
[2022-11-12] MEDS: PROTEIN SUPPLEMENT (PROSTAT) 30 ML LIQUID PO SCH ×2 (09:52→17:53)
[2022-11-12] MEDS: MEDIHONEY= THERAHONEY 1.5 OZ TUBE TOP SCH (09:52)
[2022-11-12] MEDS: NEPRO (VANILLA) 237 ML CAN PO SCH ×3 (09:53→17:53)
--- NOTE | 2022-11-12 09:57 | NUR ---
repeated accucheck blood sugar 77
[2022-11-12 11:51] VITALS: BP 125/51
--- NOTE | 2022-11-12 12:49 | NUR ---
WOUND CARE CONSULT: RECEIVED CONSULT FOR LEFT WRIST WOUND/SCAB. DEFER TO SURGICAL TEAM CURRENTLY ON CASE. MD IN AGREEMENT WITH PLAN OF CARE.
[2022-11-12] MEDS ORDERED: Nepro PO (15:25)
[2022-11-12] MEDS ORDERED: Insulin Glargine,Hum SQ (15:25)
[2022-11-12] MEDS ORDERED: HYDR50TA68 PO (15:25)
[2022-11-12] MEDS ORDERED: CLON1PAT2 TD (15:25)
[2022-11-12] MEDS ORDERED: MICA100V IV (15:25)
[2022-11-12] MEDS ORDERED: MERO500V23 IV (15:25)
[2022-11-12] MEDS ORDERED: IPRA0.2S6 NEB (15:25)
[2022-11-12] MEDS ORDERED: METO-357 PO (15:25)
[2022-11-12] MEDS: MICAFUNGIN SODIUM 100 MG in IV NORMAL SALINE 100 ML IV SCH (15:27)
[2022-11-12 15:42] VITALS: BP 151/47
--- NOTE | 2022-11-12 16:15 | NUR ---
pt is discharge. pt is hemodynamically stable per md. pt will go back to [facility]. report given to roxanne COVARRUBIAS of [facility]. pt will continue abx tx; left upper arm midline left in placed. wound photo taken prior discharge. viatals wnl of pt base line. blood sugar controlled. exit care provided. all belongings accounted for. family aware and agreeable with transfer. 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
== END 2022-11-12 18:15 | DRG 871 ==
LOC: ER 01:00 → TELE 09:28 → TELE3 10-23 17:56 → TELE-TD3 10-25 15:30 → TELE3 10-27 10:11 → TELE-TD3 10-28 08:15 → ICU 10-30 22:17 → CCU 10-30 23:20 → TRANSITION 11-02 06:15 → TELE-TD3 11-03 16:35 → TELE3 11-05 10:50 → MEDSURG3 11-12 12:03
PROVIDERS: ADMIT Nurse Practitioner Acute Care; ATTEND Nurse Practitioner Acute Care
PROC: 05HF33Z Insertion of Infusion Device into Left Cephalic Vein, Percutaneous Approach (ICD-10-PCS; principal; 2022-10-22)
PROC: 02PAX3Z Removal of Infusion Device from Heart, External Approach (ICD-10-PCS; 2022-10-29)
PROC: 5A1D70Z Performance of Urinary Filtration, Intermittent, Less than 6 Hours Per Day (ICD-10-PCS; 2022-10-29)
PROC: 30233N1 Transfusion of Nonautologous Red Blood Cells into Peripheral Vein, Percutaneous Approach (ICD-10-PCS; 2022-11-04)
PROC: 30233R1 Transfusion of Nonautologous Platelets into Peripheral Vein, Percutaneous Approach (ICD-10-PCS; 2022-11-05)
PROC: 0JH63XZ Insertion of Tunneled Vascular Access Device into Chest Subcutaneous Tissue and Fascia, Percutaneous Approach (ICD-10-PCS; 2022-11-10)
PROC: 05HM33Z Insertion of Infusion Device into Right Internal Jugular Vein, Percutaneous Approach (ICD-10-PCS; 2022-11-10)
PROC: B513ZZA Fluoroscopy of Right Jugular Veins, Guidance (ICD-10-PCS; 2022-11-10)
DX: A41.51 Sepsis due to Escherichia coli [E. coli] (principal); G93.41 Metabolic encephalopathy; I50.33 Acute on chronic diastolic (congestive) heart failure; N18.6 End stage renal disease; J96.01 Acute respiratory failure with hypoxia; L89.153 Pressure ulcer of sacral region, stage 3; R65.21 Severe sepsis with septic shock; N10 Acute pyelonephritis; I13.2 Hypertensive heart and chronic kidney disease with heart failure and with stage 5 chronic kidney disease, or end stage renal disease; E87.1 Hypo-osmolality and hyponatremia; I69.354 Hemiplegia and hemiparesis following cerebral infarction affecting left non-dominant side; D68.59 Other primary thrombophilia; F01.54 Vascular dementia, unspecified severity, with anxiety; F01.53 Vascular dementia, unspecified severity, with mood disturbance; D62 Acute posthemorrhagic anemia; I82.612 Acute embolism and thrombosis of superficial veins of left upper extremity; E44.1 Mild protein-calorie malnutrition; T80.211A Bloodstream infection due to central venous catheter, initial encounter; B37.7 Candidal sepsis; E11.22 Type 2 diabetes mellitus with diabetic chronic kidney disease; Z99.2 Dependence on renal dialysis; Z79.4 Long term (current) use of insulin; E87.5 Hyperkalemia; E11.65 Type 2 diabetes mellitus with hyperglycemia; I16.0 Hypertensive urgency; Z87.440 Personal history of urinary (tract) infections; I48.0 Paroxysmal atrial fibrillation; I25.10 Atherosclerotic heart disease of native coronary artery without angina pectoris; G47.33 Obstructive sleep apnea (adult) (pediatric); Z74.09 Other reduced mobility; E78.5 Hyperlipidemia, unspecified; E83.42 Hypomagnesemia; E11.649 Type 2 diabetes mellitus with hypoglycemia without coma; Z91.81 History of falling; G47.00 Insomnia, unspecified; K21.9 Gastro-esophageal reflux disease without esophagitis; M10.9 Gout, unspecified; R94.31 Abnormal electrocardiogram [ECG] [EKG]; Z87.442 Personal history of urinary calculi; E66.01 Morbid (severe) obesity due to excess calories; E88.09 Other disorders of plasma-protein metabolism, not elsewhere classified; M81.0 Age-related osteoporosis without current pathological fracture; N31.9 Neuromuscular dysfunction of bladder, unspecified; K59.09 Other constipation; Z22.322 Carrier or suspected carrier of Methicillin resistant Staphylococcus aureus; R13.12 Dysphagia, oropharyngeal phase; R29.810 Facial weakness; Z90.49 Acquired absence of other specified parts of digestive tract; Z79.899 Other long term (current) drug therapy; Z79.84 Long term (current) use of oral hypoglycemic drugs; Z68.35 Body mass index [BMI] 35.0-35.9, adult; M19.90 Unspecified osteoarthritis, unspecified site; Z79.82 Long term (current) use of aspirin
CPT/HCPCS: 36415; 36600; 70030-TC; 70450; 71045; 73551; 76881; 82533; 82803; 83605; 83735; 84100; 84443; 84484; 85018; 85025; 85730; 86706; 86850; 86900; 86901; 86920; 87040; 87340; 90937; 93005; 93307; A4649; A4663; A6209; A6213; C1758; C1769; G0378; J0282; J0360; J0690; J0692; J0696; J0780; J1200; J1642; J1644; J1720; J1815; J2185; J2248; J2270; J2597; J3370; J3475; J3490; J7040; J7050; J7070; P9016; P9035; P9047